=== PATIENT | female | born 1955 | race Caucasian/White ===

== ENCOUNTER 2024-07-11 20:15 | Emergency (ER) | payer MEDICARE, BC, SELFPAY ==
[2024-07-11 20:42] VITALS: BP 137/67; PULSE 86; TEMP 36.7; O2SAT 97; BMI 35.5
--- NOTE | 2024-07-11 20:50 | XR_ITS ---
The [address] [address] Patient Name: PEPITO ESTRELLA MRN: [id number] date: 1955 Sex: F Assigned Patient Location: ED.MAIN Current Patient Location: ED.MAIN Accession/Order Number: [id number] Exam Date: 07/11/2024 20:50 Report Date: 07/11/2024 21:12 At the request of: AMY SKY Procedure: XR shoulder RT min 2V PROCEDURE: XR shoulder RT min 2V HISTORY: fall, pain COMPARISON: None. FINDINGS: BONES:Acute transverse fracture through surgical neck of right humerus with slight medial displacement of the diaphysis. Humeral head appears remains seated within the glenoid. Possible fracture extension into the greater tuberosity. Moderate-marked degenerative changes of the acromioclavicular joint with large undersurface osteophytes. SOFT TISSUES:No visible soft tissue swelling. EFFUSION:None visible. OTHER: Negative. XR/XR shoulder RT min 2V IMPRESSION: 1. Acute transverse fracture through surgical neck of right humerus with minimal displacement. Possible extension into the greater tuberosity. Evaluation is slightly limited. 2. Moderate-marked degenerative changes of the acromioclavicular joint. Electronically authenticated by: ZAHRA LAURA Date: 07/11/2024 21:12
--- NOTE | 2024-07-11 20:50 | ED_ITS ---
HPI HPI - Extremity Injury (Upper) General Chief Complaint: Extremity Injury, Upper Stated Complaint: FALL AT HOME-POSS BROKEN ARM Time Seen by Provider: 07/11/24 20:21 Limitations: no limitations History of Present Illness HPI narrative: 69-year-old female presents for right shoulder pain. A half an hour ago she tripped on a cat toy and fell forward and hit her shoulder on the table. She did not hit her head and has no other injury. She is left-handed. The pain is moderate and is worse if she tries to move her shoulder. Related Data Home Medications ?Medication ?Instructions ?Recorded ?Confirmed albuterol sulfate 90 mcg/actuation 2 puff inhalation Q4H PRN 07/11/24 07/11/24 aerosol inhaler (Ventolin HFA) bronchospasm atorvastatin 20 mg tablet 20 mg PO DAILY 07/11/24 07/11/24 buspirone 10 mg tablet 20 mg PO BID 07/11/24 07/11/24 montelukast 10 mg tablet 10 mg PO DAILY 07/11/24 07/11/24 Previous Rx's ?Medication ?Instructions ?Recorded acetaminophen 300 mg-codeine 30 mg 1 tab PO Q6H PRN pain 5 days #20 07/11/24 tablet tabs Allergies Allergy/AdvReac Type Severity Reaction Status Date / Time aspirin Allergy Mild Difficulty Verified 07/11/24 20:39 Breathing naproxen (From Aleve) Allergy Mild Difficulty Verified 07/11/24 20:39 Breathing Penicillins Allergy Mild Difficulty Verified 07/11/24 20:39 Breathing Opioid HPI Opioid Management Most Recent Pain and Opioid Data: No Data to Display Review of Systems ROS Narrative A ten point review of systems is negative except as noted above. PFSH PFSH Social History Little interest or pleasure in doing things: not at all Feeling down, depressed, or hopeless: not at all Exam Narrative Exam Narrative: Nurses note and vital signs reviewed and patient is not hypoxic. General: The patient appears well and in no apparent distress. Patient is resting comfortably on cart. Skin: Warm, dry, no pallor noted. There is no rash noted. Head: Normocephalic, atraumatic Eye: Normal conjunctiva, no drainage Ears, Nose, Mouth, and Throat: oral mucosa is moist. Nares patent. Cardiovascular: Regular Rate and Rhythm Respiratory: Patient is in no distress, no accessory muscle use Back: non-tender GI: Soft and nontender Musculoskeletal: Triage nurse placed a sling on her shoulder. There is no obvious deformity. Skin intact. She has some tenderness in the proximal humeral area. She is reluctant to have any range of motion Neurological: A&O, normal speech Psychiatric: Cooperative Constitutional Vital Signs, click to edit/add: Last Vital Signs Temp 98.0 F 07/11/24 20:42 Pulse 86 07/11/24 20:42 Resp 20 07/11/24 20:42 BP 137/67 07/11/24 20:42 Pulse Ox 97 07/11/24 20:42 O2 Del Method Room Air 07/11/24 20:42 Course Vital Signs Vital signs: Vital Signs Temperature 98.0 F 07/11/24 20:42 Pulse Rate 86 07/11/24 20:42 Respiratory Rate 20 07/11/24 20:42 Blood Pressure 137/67 07/11/24 20:42 Pulse Oximetry 97 07/11/24 20:42 Oxygen Delivery Method Room Air 07/11/24 20:42 Temperature 98.0 F 07/11/24 20:42 Pulse Rate 86 07/11/24 20:42 Respiratory Rate 20 07/11/24 20:42 Blood Pressure 137/67 07/11/24 20:42 Pulse Oximetry 97 07/11/24 20:42 Oxygen Delivery Method Room Air 07/11/24 20:42 MDM - Extremity Injury (Upper) MDM Narrative Medical decision making narrative: X-ray my interpretation shows a proximal humeral fracture. Sling applied, application checked by me and found to be appropriate, she is neurovascular intact. Appointment made to see Dr. Lynn on Saturday at 10:45 AM. Treatment diagnosis and follow-up were discussed with the patient. Differential Diagnosis Differential diagnosis: Likely other (Contusion, fracture, rotator cuff injury) Imaging Data Right shoulder: My impression: Proximal humeral fracture Discharge Plan Discharge Chief Complaint: Extremity Injury, Upper Clinical Impression: Shoulder fracture, right Patient Disposition: Home, Self-Care Time of Disposition Decision: 20:55 Condition: Good Mode of Transportation: Private Vehicle Prescriptions / Home Meds: New acetaminophen-codeine 300-30 mg tablet 1 tab PO Q6H PRN (Reason: pain) 5 Days Qty: 20 0RF No Action atorvastatin 20 mg tablet 20 mg PO DAILY buspirone 10 mg tablet 20 mg PO BID montelukast 10 mg tablet 10 mg PO DAILY albuterol sulfate [Ventolin HFA] 90 mcg/actuation HFA aerosol inhaler 2 puff INHALATION Q4H PRN (Reason: bronchospasm) Print Language: Syriac Instructions: Arm Fracture in Adults (ED) Referrals: LILLY HINDS [Primary Care Provider] - 1 week He Lynn MD [Physician] - 07/13/24 10:45 am
[2024-07-11] MEDS: ACETAMINOPHEN 300 MG/ 30 MG CODEINE TABLET 1 TAB PO ×2 (21:22→22:45)
[2024-07-11] MEDS: ONDANSETRON 4 MG RAPDIS TABLET SL ×2 (21:30→22:45)
--- NOTE | 2024-07-11 22:14 | PC.NURSE ---
called in requesting another pain pill and nausea pill for home. OK'd by Dr Lynn
== END 2024-07-11 21:47 | disposition home or self-care (01) ==
PROVIDERS: Emergency Provider Emergency Medicine; Family Provider Family Medicine; PCP Family Medicine
DX: S42.211A Unspecified displaced fracture of surgical neck of right humerus, initial encounter for closed fracture (principal); W01.190A Fall on same level from slipping, tripping and stumbling with subsequent striking against furniture, initial encounter
CPT/HCPCS: 73030; 99284; Q0162

== ENCOUNTER 2024-07-20 10:06 | Outpatient (OUT) | payer MEDICARE, BC, SELFPAY ==
--- NOTE | 2024-07-20 | XR_ITS ---
[address] [address] Patient Name: PEPITO ESTRELLA MRN: [id number] date: 1955 Sex: F Assigned Patient Location: Current Patient Location: Accession/Order Number: [id number] Exam Date: 07/20/2024 10:15 Report Date: 07/21/2024 07:43 At the request of: ZAHRA GUTIERREZ Procedure: XR shoulder RT min 2V PROCEDURE: XR shoulder RT min 2V HISTORY: RIGHT SHOULDER PAIN ; follow-up humerus fracture COMPARISON: XR shoulder right 07/11/2024x FINDINGS: BONES:Prior transverse fracture through surgical neck of humerus with relatively normal alignment and minimal displacement. No appreciable callus formation. Humeral head remains seated within the glenoid. Moderate degenerative changes of the acromioclavicular joint. SOFT TISSUES:No visible soft tissue swelling. EFFUSION:None visible. OTHER: Negative. XR/XR shoulder RT min 2V IMPRESSION: 1. Right humerus surgical neck fracture with minimal displacement. Electronically authenticated by: ZAHRA LAURA Date: 07/21/2024 07:43
--- OUTSIDE RECORDS SUMMARY | 2024-07-20 10:11 | XMS_ITS | CCD ---
Author Organization [facility] Care Team Providers Care Family Day Care Worker Name Role Phone Oberer, Luis Unavailable Oberer, DO Luis Primary Care Provider Oberer, DO Luis Attending Provider [phone] Oberer, DO Luis Primary Care Provider Oberer, DO Luis Attending Provider [phone] Oberer, DO Luis Primary Care Provider [phone] Oberer, DO Luis Attending Provider Bedocs, Matt M Attending Provider [phone] Oberer, DO Luis Primary Care Provider [phone] Oberer, DO Luis Attending Provider Oberer, DO Luis Referring Provider Self, Referral Attending Provider Unavailable Oberer, Luis Primary Care Unavailable Oberer, Luis Attending Unavailable Oberer, Luis Admitting Unavailable Oberer, Luis Primary Care Unavailable BedocsMatt M Admitting Unavailable BedocsMatt Attending Unavailable Oberer, Luis Primary Care Unavailable Oberer, Luis Attending Unavailable Oberer, Luis Admitting Unavailable Oberer, Luis Primary Care Unavailable Oberer, Luis Referring Unavailable Self, Referral Admitting Unavailable Self, Referral Attending Unavailable Allergies Allergy Classification Reported Allergen(s) Allergy Type Date of Onset Reaction(s) Facility (13 sources) Alendronate Drug Allergy GI upset [employer] Other (16 sources) fluticasone Drug Allergy 4 sore throat, dyspnea, sore throat [facility] (12 sources) fluticasone / salmeterol Drug Allergy dyspnea [employer] Other (8 sources) Penicillin V Drug Allergy shortness of breath [facility] Other (13 sources) salmon calcitonin Drug Allergy Nasal Bleeding [facility] Other (1 source) fluticasone / salmeterol Drug Allergy dyspnea [facility] Other (9 sources) Aspirin; Translations: [aspirin] Drug Allergy 8 Difficulty Breathing [facility] (9 sources) Naproxen; Translations: [naproxen] Drug Allergy 8 Difficulty Breathing [facility] (9 sources) Penicillins; Translations: [Penicillins] Allergy to substance 8 Difficulty Breathing, Difficulty Breathing, shortness of breath [facility] (5 sources) Penicillin Drug Allergy shortness of breath [facility] Other (4 sources) Alendronate; Translations: [alendronate sodium] Drug Allergy 4 GI upset [facility] (4 sources) salmeterol; Translations: [salmeterol] Drug Allergy 4 dyspnea [facility] (4 sources) calcitonin; Translations: [calcitonin] Allergy to substance 4 Nasal Bleeding [facility] (1 source) fluticasone Drug Allergy 4 [facility] Repository Medications Current Medications Medication Drug Class(es) Dates Sig (Normalized) Sig (Original) [id number] 200 actuat albuterol 0.09 mg/actuat metered dose inhaler (20 sources) beta2-Adrenergic Agonist Start: 03-06-2024 Albuterol Sulfate (Ventolin Hfa) 90 mcg/actuation HFA aerosol inhaler Active 0 .ROUTE .COMPLEX 18 March 06, 2024 11:45am USE 2 INHALATIONS BY MOUTH TWICE DAILY Start: 02-17-2024 End: 03-06-2024 take 1 puff(s) by inhalation twice daily Albuterol Sulfate Discontinued 2 PUFF INHALATION Twice daily 6.7 February 17, 2024 3:11pm March 06, 2024 11:45am Start: 01-24-2024 take 3 mL by inhalat ion four times daily Albuterol Sulfate Active 2.5 MG INHALATION Four times daily January 24, 2024 12:00am [employer] Inhalation 4 times a day; Note: Source Status: Taking; Provider: James Smith ( ) Start: 10-02-2017 End: 02-17-2024 take 1 puff(s) by inhalation twice daily Albuterol Sulfate Discontinued 1 PUFF INHALATION Twice daily October 02, 2017 12:00am February 17, 2024 3:14pm Ventolin HFA 108 (90 Base) MCG/ACT USE 2 INHALATIONS BY MOUTH DAILY AND EVERY 4 HOURS NEEDED FOR ASTHMA PRODUCT APPLICATIONS SCIENTIST RECOMMENDS NOT EXCEEDING 12 INH/DAY for 90 Active Ventolin HFA 108 (90 Base) MCG/ACT 2 puffs Inhalation daily and every 4 hrs prn asthma for 90 days Active Albuterol Sulfate (2.5 MG/ 3 ML) 2.5 MG/3ML 0.083% Nebulization Solution (13 sources) Albuterol Sulfat e (2.5 MG/ 3 ML) 2.5 MG/3ML 0.083% Nebulization Solution 3ml Inhalation 4 times a day Active [facility] (13 sources) take 1 tablet by mouth once daily as needed [facility] 1 tablet as needed Orally Once a day Active aspirin 81 mg delayed release oral tablet (9 sources) Platelet Aggregation Inhibitor, Nonsteroidal Anti-inflammatory Drug take 1 tablet by mouth every twenty-four hours Aspirin 81 81 MG 1 tablet Orally Once a day for 30 day(s) Active take 1 tablet by mouth once ramesh y Aspirin 81 81 MG 1 tablet Orally Once a day for 30 day(s) Active atorvastatin 20 mg oral tablet (20 sources) HMG-CoA Reductase Inhibitor Start: 11-15-2023 take 20 mg by mouth once daily at bedtime Atorvastatin Active 20 MG PO Daily at bedtime 90 90 November 15, 2023 12:00am Start: 11-14-2023 End: 11-15-2023 take 2 tablets by mouth once daily at bedtime Atorvastatin (Lipitor) 10 mg tablet Discontinued 20 MG PO Daily at bedtime 180 November 14, 2023 4:27pm November 15, 2023 10:52am Start: 10-02-2017 End: 11-14-2023 take 1 tablet by mouth once daily Atorvastatin (Lipitor) 10 mg Tablet Discontinued 10 MG PO Daily October 02, 2017 12:00am November 14, 2023 4:26pm take 1 tablet by caitlin th at bedtime Atorvastatin Calcium 20 MG TAKE 1 TABLET BY MOUTH AT BEDTIME for 90 Active 24 hr buPROPion hydrochloride 300 mg extended release oral tablet (8 sources) Aminoketone Start: 06-11-2017 take 1 tablet by mouth every twenty-four hours Wellbutrin XL 300 MG 1 tablet in the morning Orally Once a day for 90 days Jun, Active busPIRone hydrochloride 10 mg oral tablet (15 sources) Start: 01-22-2024 End: 01-27-2024 take 2 tablets by mouth twice daily Buspirone Active 20 MG PO Twice daily 360 90 January 27, 2024 11:21am FreeText[employer] tablets Orally Twice a day; Note: Source Status: Start; Refills: 1; Qty: 360 Tablet; Provider: James Nagel Start: 07-22-2023 take 2 tablets by mo [facility] every twelve hours busPIRone HCl 10 MG 2 tablets Orally Twice a day for 90 days Jul, Active Start: 01-25-2022 take 1 tablet by caitlin every twelve hours busPIRone HCl 15 MG 1 tablet Orally Twice a day for 90 days Jan, Active Start: 11-17-2021 take 1 tablet by caitlin every twelve hours busPIRone HCl 10 MG 1 tablet Orally Twice a day for 30 days November, Active Start: 10-26-2021 take 1 tablet by caitlin every twelve hours busPIRone HCl 5 MG 1 tablet Orally Twice a day for 30 days Oct, Active Calcium (13 sources) Phosphate Binder, Calcium Calciu m + D Orally Daily Active ciclopirox 7.7 mg/ml topical cream (3 sources) Start: 01-25-2022 Loprox 0.77 % Apply to right elbow rash Externally Twice a day for 30 days PRN Jan, Active fluticasone propionate 0.05 mg/actuat metered dose nasal spray (20 sources) Corticosteroid Start: 10-02-2017 Fluticasone Propionate (Flonase Allergy Relief) 50 mcg/actuation [place],Suspension Active 1 SPRAY INTRANASAL Daily October 02, 2017 12:00am take 2 spray(s) nasal route once daily Flonase 50 MCG/ACT 2 spray in each nostril Nasally Once a day for 90 days Active take 2 spray(s) nasal route once daily Flonase 50 MCG/ACT 2 spray in each nostril Nasally Once a day for 90 days Active L.Rhamnosus-B.Animalis (HelloFresh) 3 billion cell capsule (2 sources) Start: 01-24-2024 L.Rhamnosus-B.Animalis (HelloFresh) 3 billion cell capsule Active CAP PO January 24, 2024 12:00am montelukast 10 mg oral tablet (20 sources) Leukotriene Receptor Antagonist Start: 10-02-2017 End: 12-18-2023 take 1 tablet by mouth once daily in the evening Montelukast (Singulair) 10 mg tablet Active 10 MG PO Every evening 90 December 18, 2023 2:31pm nitrofurantoin, macrocrystals 25 mg / nitrofurantoin, monohydrate 75 mg oral capsule (3 sources) Nitrofuran Antibacterial Start: 07-20-2021 take 1 capsule by mouth every twelve hours Macrobid 100 MG 1 capsule with food Orally every 12 hrs for 10 days Jul, Active MyParichay (13 sources) NanoPowers ealt Orally Active risedronate sodium 150 mg oral tablet (16 sources) Start: 01-24-2024 End: 02-17-2024 take 150 mg by mouth every month Risedronate Active 150 MG PO every month February 17, 2024 3:13pm administer at least 30 minutes before the first food or drink of the day other than water. take 1 tablet by mouth every sat Risedronate Sodium 150 MG TAKE 1 TABLET BY MOUTH MONTHLY for 90 Active sertraline 100 mg oral tablet (20 sources) Serotonin Reuptake Inhibitor Start: 01-24-2024 take 2 tablets by mouth once daily Sertraline (Zoloft) 100 mg tablet Active 200 MG PO Daily January 24, 2024 8:35am Start: 10-02-2017 End: 01-24-2024 take 1 tablet by mouth once daily Sertraline (Zoloft) 100 mg Tablet Discontinued 100 MG PO Daily October 02, 2017 12:00am January 24, 2024 8:37am take 2 tablets by mo uth once daily Sertraline HCl 100 MG TAKE 2 TABLETS BY MOUTH ONCE DAILY for 90 Active spironolactone 100 mg oral tablet (6 sources) Aldosterone Antagonist Start: 01-22-2024 take 1 tablet by mouth once daily Spironolactone Active 100 MG PO Daily January 22, 2024 12:00am FreeTextSi tablet Orally Once a day; Note: Source Status: Taking; Provider: Per Dr. Mckeon take 1 tablet by caitlin th every twenty-four hours Spironolactone 100 MG 1 tablet Orally On ce a day Active tiotropium 0.018 mg inhalation powder (13 sources) Anticholinergic Start: 12-24-2019 take 1 capsule by inhalation once daily Spiriva HandiHaler 18 MCG 1 capsule by inhaling the contents of the capsule using the HandiHaler device Inhalation Once a day for 90 days Dec, Active Start: 12-24-2019 take 1 capsule by in halation once daily Spiriva HandiHaler 18 MCG 1 capsule by inhaling the contents of the capsule using the HandiHaler device Inhalation Once a day for 90 days Dec, Active Completed/Discontinued Medications Medication Drug Class(es) Dates Sig (Normalized) Sig (Original) acetaminophen 325 mg / HYDROcodone bitartrate 5 mg oral tablet (8 sources) Opioid Agonist Start: 10-02-2017 End: 01-24-2024 take 1 tablet by mouth every six hours Hydrocodone-Acetami nophen ([place]) 5-325 mg tablet Discontinued 1 TAB PO Q6H October 02, 2017 January 24, 2024 8:35am Problems Active Problems Problem Classification Problem Date Documented Da te Episodic/Chronic Adjustment disorders (20 sources) Adjustment disorder with mixed emotional features; Translations: [Adjustment disorder with mixed anxiety and depressed mood] Onset: 07-20-2021 Resolved: 02-15-2022 Chronic Allergic reactions (18 sources) Allergy to penicillin; Translations: [Allergy status to penicillin] Onset: 07-20-2021 Resolved: 07-20-2021 Episodic Anxiety disorders (17 sources) Panic disorder; Translations: [Panic disorder [episodic paroxysmal anxiety]] Onset: 10-26-2021 Resolved: 01-25-2022 Chronic Asthma (20 sources) Asthma; Translations: [Unspecified asthma, uncomplicated] Onset: 07-20-2021 Resolved: 01-25-2022 Chronic Disorders of lipid metabolism (20 sources) Mixed hyperlipidemia; Translations: [Mixed hyperlipidemia] Onset: 07-20-2021 Resolved: 01-25-2022 Chronic Fracture of lower limb (16 sources) Metatarsal bone fracture; Translations: [Displaced fracture of fifth metatarsal bone, unspecified foot, initial encounter for closed fracture] 10-02-2017 Episodic Menopausal disorders (16 sources) Menopausal and female climacteric states; Translations: [Menopausal state] 01-08-2024 Chronic Osteoarthritis (20 sources) Degenerative joint disease involving multiple joints; Translations: [Polyosteoarthritis , unspecified] Onset: 07-20-2021 Resolved: 01-25-2022 Chronic Osteoporosis (20 sources) Osteoporosis; Translations: [Age-related osteoporosis without current pathological fracture] Onset: 07-20-2021 Resolved: 01-25-2022 Chronic Other aftercare (16 sources) Long-term current use of drug therapy; Translations: [Other intermediate school teacher (current) drug therapy] 01-08-2024 Episodic Other aftercare (5 sources) Other intermediate school teacher (current) drug therapy Onset: 07-20-2021 Resolved: 01-25-2022 Episodic Other connective tissue disease (13 sources) Weakness of face muscles; Translations: [Facial weakness] Episodic Other nutritional; endocrine; and metabolic disorders (13 sources) Childhood obesity; Translations: [Other obesity due to excess calories] Chronic Other nutritional; endocrine; and metabolic disorders (4 sources) Other obesity due to excess calories Onset: 07-20-2021 Resolved: 01-25-2022 Chronic Other nutritional; endocrine; and metabolic disorders (1 source) Body mass index 40+ - severely obese; Translations: [Body mass index (BMI) 50.0-59.9, adult] Chronic Other nutritional; endocrine; and metabolic disorders (1 source) Body mass index (BMI) 50.0-59.9, adult Chronic Other screening for suspected conditions (not mental disorders or infectious disease) (8 sources) Encounter for screening for malignant neoplasm of colon; Translations: [Encounter for screening for osteoporosis] Onset: 10-19-2021 Resolved: 02-15-2022 Episodic Other upper respiratory disease (16 sources) Seasonal allergy; Translations: [Other seasonal allergic rhinitis] 01-08-2024 Chronic Other upper respiratory disease (16 sources) Allergic rhinitis; Translations: [Allergic rhinitis, unspecified] 01-08-2024 Chronic Other upper respiratory disease (3 sources) Allergic rhinitis, unspecified Onset: 07-20-2021 Resolved: 01-25-2022 Chronic Other upper respiratory disease (3 sources) Other seasonal allergic rhinitis; Translations: [Allergic rhinitis, cause unspecified] Chronic Residual codes; unclassified (16 sources) FH: Alzheimer's disease; Translations: [Family history of epilepsy and other diseases of the nervous system] 01-08-2024 Episodic Residual codes; unclassified (1 source) Family history of epilepsy and other diseases of the nervous system Episodic Unclassified (1 source) Other specified nonscarring hair loss; Translations: [Other specified nonscarring hair loss] Onset: 07-30-2023 Past or Other Problems Problem Classification Problem Date Documented Da te Episodic/Chronic Administrative/social admission (1 source) Other specified counseling Onset: 01-25-2022 Resolved: 01-25-2022 Episodic Diabetes mellitus without complication (20 sources) Impaired glucose tolerance; Translations: [Impaired glucose tolerance (oral)] Onset: 07-20-2021 Resolved: 01-25-2022 Episodic Genitourinary symptoms and ill-defined conditions (2 sources) Dysuria Onset: 07-20-2021 Resolved: 07-20-2021 Episodic Mycoses (1 source) Tinea corporis Onset: 01-25-2022 Resolved: 01-25-2022 Episodic Other connective tissue disease (3 sources) Facial weakness Onset: 07-20-2021 Resolved: 01-25-2022 Episodic Other skin disorders (1 source) Other seborrheic keratosis Onset: 01-25-2022 Resolved: 01-25-2022 Episodic Unclassified (1 source) Vaccine counseling Z71.85 Urinary tract infections (3 sources) Cystitis, unspecified without hematuria Onset: 07-20-2021 Resolved: 08-07-2021 Episodic Results Test Name Value Interpretation Reference Range Facility MM screening mammo BI w/CADo n 03-20-2024 MM screening mammo BI w/CAD [facility] [place] [address] Mammography Report Signed Patient: Paula Bone V MR#: [id number] [birth year] : 1955 Acct:[id number] Age/Sex: 69 / F ADM Date: 03/20/24 Loc: [place] Room: Type: [facility] Attending Dr: Referral Self Copies to: Luis Ramirez DO SELF,REFERRAL Ordering Provider: SELF,REFERRAL Date of Service: 03/20/24 MM/MM screening mammo BI w/CAD: SCREENING CLINICAL DATA: Screening for malignancy. BILATERAL SCREENING MAMMOGRAMS - FULL FIELD DIGITAL WITH TOMOSYNTHESIS AND CAD Tomosynthesis craniocaudal and mediolateral oblique views of both breasts were obtained using low- dose digital technique. Comparison is made to prior studies from February 17, 2018 through March 19, 2023. This examination was reviewed with the aid of CAD. The breast parenchyma has been largely replaced by fat. Benign calcifications are present. There are no developing masses, typically malignant calcifications or architectural distortion. There has been no significant interval change. MM/MM screening mammo BI w/CAD IMPRESSION: NO MAMMOGRAPHIC EVIDENCE OF MALIGNANCY. ROUTINE FOLLOW-UP IS RECOMMENDED IN ONE YEAR. RESULT CODE: 2 Benign Findings(s) DENSITY CODE: 1 (<25% glandular) FOLLOW UP: 1YR The false-negative rate of mammography is approximately 10-percent. Management of a palpable abnormality must be based on clinical grounds. Patient was entered into a reminder system with a target due date for the next mammogram. Impression dictated by: Ruth Valverde M.D.03/20/2024 3:26 PM Dictation Location: [facility] Transcribed By: [facility] 03/20/24 1526 Dictated By: Ruth Valverde MD 03/20/24 1522 Signed By: 03/20/24 1526 Normal [facility] A1C with Estimated Average G amaris 01-17-2024 Glucose [Mass/Vol] 120 mg/dL Normal [facility] Comment on above: Order Comment: Reaso n for Exam Impaired glucose tolerance Result Comment: PERF ORMED BY: [place] [address] PATHOLOGIST GLOBAL CREATIVE CHAIRMAN ELIEZER TEMPLE M.D. Performed By: #### A 1C [facility] #### [address] Cholesterol [Mass/volume] in Serum or PlasmaOrdered By: Luis Ramirez on 01-17-2024 Cholesterol [Mass/Vol] 146 mg/dL Normal 140-200 [facility] Comment on above: Chol less than 200 m g/dl low riskChol 201-239 mg/dl borderline riskChol 240 mg/dl and greater high risk Order Comment: Reaso n for Exam Mixed hyperlipidemia Result Comment: Chol less than 200 mg/dl low risk Chol 201-239 mg/dl borderline risk Chol 240 mg/dl and greater high risk Performed By: #### L IPID #### [facility] [address] Cholesterol in LDL Calc [Mas s/Vol]Ordered By: Luis Ramirez on 01-17-2024 Cholesterol in LDL [Mass/Vol] 70 mg/dL 0-100 [facility] Comment on above: LDL ATP III CLASSIFI CATIONLDL less than 100 mg/dL OptimalLDL 100-129 mg/dL Near or above optimalLDL 130-159 mg/dL Borderline highLDL 160-189 mg/dL HighLDL greater than 189 mg/dL Very high Cholesterol in VLDL Calc [Ma ss/Vol]Ordered By: Luis Ramirez on 01-17-2024 Cholesterol in VLDL [Mass/Vol] 27 mg/dL [facility] Glucose mean value [Mass/vol ume] in Blood Estimated from glycated hemoglobinOrdered By: Luis Ramirez on 01-17-2024 Average glucose Estimated from glycated hemoglobin (Bld) [Mass/Vol] 120 mg/dL [facility] Hemoglobin A1c percentageOrd ered By: Luis Ramirez on 01-17-2024 HbA1c (Bld) [Mass fraction] 5.8 % High 4.3-5.6 [facility] Comment on above: Increased risk for d iabetes: 5.7 - 6.4diabetes: >6.4glycemic control for adults with diabetes: <7.0 Order Comment: Reaso n for Exam Impaired glucose tolerance Result Comment: Incr eased risk for diabetes: 5.7 - 6.4 diabetes: >6.4 glycemic control for adults with diabetes: <7.0 Performed By: #### A 1C WT eA #### [facility] [address] [place] [id number] [facility] Lipid Panelon 01-17-2024 LDL Cholesterol,Calculated 70 mg/dL Normal 0-100 [facility] Comment on above: Order Comment: Alfonsoo n for Exam Mixed hyperlipidemia Result Comment: LDL ATP III CLASSIFICATION LDL less than 100 mg/dL Optimal LDL 100-129 mg/dL Near or above optimal LDL 130-159 mg/dL Borderline high LDL 160-189 mg/dL High LDL greater than 189 mg/dL Very high Performed By: #### L IPID #### [facility] [address] Triglyceride w/Reflex 138 mg/dL Normal 0-149 [facility] Comment on above: Order Comment: Jes n for Exam Mixed hyperlipidemia Result Comment: TRIG ATP III CLASSIFICATION TRIG less than 150 mg/dL Normal TRIG 150-199 mg/dL Borderline high TRIG 200-500 mg/dL High TRIG greater than 500 mg/dL Very high Standard traceable to the Center for Disease Conrtrol and Prevention (CDC) test method. Performed By: #### L IPID #### [facility] [address] VLDL CHOLESTEROL 27 mg/dL Normal [facility] Comment on above: Order Comment: Jes n for Exam Mixed hyperlipidemia Performed By: #### L IPID #### [facility] [address] [place] [id number] [facility] Serum or plasma high density lipoprotein (HDL) cholesterol measurementOrdered By: Luis Ramirez on 01-17-2024 Cholesterol in HDL [Mass/Vol] 48 mg/dL Normal 23-92 [facility] Comment on above: HDL CHOL ATP-III CLA SSIFICATION Cardiovascular RiskHDL > or equal to 60 mg/dL LOWHDL < 40 mg/dL HIGH Order Comment: Alfonsoo n for Exam Mixed hyperlipidemia Result Comment: HDL CHOL ATP-III CLASSIFICATION Cardiovascular Risk HDL > or equal to 60 mg/dL LOW HDL < 40 mg/dL HIGH Performed By: #### L IPID #### [facility] [address] [place] [id number] [facility] Serum or plasma total choles terol/high density lipoprotein (HDL) cholesterol mass ratOrdered By: Luis Ramirez on 01-17-2024 Cholesterol.total/Flory sterol in HDL [Mass ratio] 3.0 {ratio} Normal <5.0 [facility] Comment on above: Order Comment: Reaso n for Exam Mixed hyperlipidemia Result Comment: PERF ORMED BY: [place] [address] PATHOLOGIST [employer]LOBAL CREATIVE CHAIRMAN ELIEZER TEMPLE M.D. Performed By: #### L IPID #### [facility] [address] [place], [place] [id number] [place] Triglyceride [Mass/volume] i n Serum or PlasmaOrdered By: Luis Ramirez on 01-17-2024 Triglyceride [Mass/Vol] 138 mg/dL 0-149 [facility] [place] Comment on above: TRIG ATP III CLASSIF ICATIONTRIG less than 150 mg/dL NormalTRIG 150-199 mg/dL Borderline highTRIG 200-500 mg/dL High TRIG greater than 500 mg/dL Very highStandard traceable to the Center for Disease Conrtrol and Prevention (CDC) test method. Alanine aminotransferase [En zymatic activity/volume] in Serum or PlasmaOrdered By: Matt Mckeon on 07-30-2023 ALT [Catalytic activity/Vol] 14 U/L Normal 7-52 [facility] Comment on above: Result Comment: PERF ORMED BY: [place] [address] PATHOLOGIST GLOBAL CREATIVE CHAIRMAN ELIEZER TEMPLE M.D. Performed By: #### A ST, ALT, K #### [facility] [address] [place] [id number] [place] Aspartate aminotransferase [ Enzymatic activity/volume] in Serum or PlasmaOrdered By: Matt Mckeon on 07-30-2023 AST [Catalytic activity/Vol] 15 U/L Normal 13-39 [facility] Comment on above: Performed By: #### A ST, ALT, K #### [facility] [address] [place] [id number] [place] Potassium [Moles/volume] in Serum or PlasmaOrdered By: Matt Mckeon on 07-30-2023 Potassium [Moles/Vol] 4.7 mmol/L Normal 3.5-5.1 [facility] Comment on above: Performed By: #### A ST, ALT, K #### [facility] [address] [place] [address] [place] A1C with Estimated Average G jesusn 07-15-2023 Glucose [Mass/Vol] 117 mg/dL Normal [facility] Comment on above: Order Comment: Reaso n for Exam Impaired glucose tolerance Result Comment: PERF ORMED BY: [place] [address] PATHOLOGIST [employer]LOBAL CREATIVE CHAIRMAN ELIEZER TEMPLE M.D. Performed By: #### A 1C WT eA #### [facility] [address] [place] [address] [place] Cholesterol [Mass/volume] in Serum or PlasmaOrdered By: Luis Ramirez on 07-15-2023 Cholesterol [Mass/Vol] 151 mg/dL Normal 140-200 [facility] Comment on above: Chol less than 200 m g/dl low riskChol 201-239 mg/dl borderline riskChol 240 mg/dl and greater high risk Order Comment: Reaso n for Exam Mixed hyperlipidemia FASTING Result Comment: Chol less than 200 mg/dl low risk Chol 201-239 mg/dl borderline risk Chol 240 mg/dl and greater high risk Performed By: #### L IPID #### [facility] [address] [place] [id number] [facility] Cholesterol in LDL Calc [Mas s/Vol]Ordered By: Luis Ramirez on 07-15-2023 Cholesterol in LDL [Mass/Vol] 71 mg/dL 0-100 [facility] Comment on above: LDL ATP III CLASSIFI CATIONLDL less than 100 mg/dL OptimalLDL 100-129 mg/dL Near or above optimalLDL 130-159 mg/dL Borderline highLDL 160-189 mg/dL HighLDL greater than 189 mg/dL Very high Cholesterol in VLDL Calc [Ma ss/Vol]Ordered By: Luis Ramirez on 07-15-2023 Cholesterol in VLDL [Mass/Vol] 34 mg/dL [facility] Glucose mean value [Mass/vol ume] in Blood Estimated from glycated hemoglobinOrdered By: Luis Ramirez on 07-15-2023 Average glucose Estimated from glycated hemoglobin (Bld) [Mass/Vol] 117 mg/dL [facility] Hemoglobin A1c percentageOrd ered By: Luis Ramirez on 07-15-2023 HbA1c (Bld) [Mass fraction] 5.7 % High 4.3-5.6 [facility] Comment on above: Increased risk for d iabetes: 5.7 - 6.4diabetes: >6.4glycemic control for adults with diabetes: <7.0 Order Comment: Reaso n for Exam Impaired glucose tolerance Result Comment: Incr eased risk for diabetes: 5.7 - 6.4 diabetes: >6.4 glycemic control for adults with diabetes: <7.0 Performed By: #### A 1C WT eA #### [facility] [address] Lipid Panelon 07-15-2023 LDL Cholesterol,Calculated 71 mg/dL Normal 0-100 [facility] Comment on above: Order Comment: Reaso n for Exam Mixed hyperlipidemia FASTING Result Comment: LDL ATP III CLASSIFICATION LDL less than 100 mg/dL Optimal LDL 100-129 mg/dL Near or above optimal LDL 130-159 mg/dL Borderline high LDL 160-189 mg/dL High LDL greater than 189 mg/dL Very high Performed By: #### L IPID #### [facility] [address] Triglyceride w/Reflex 173 mg/dL High 0-149 [facility] Comment on above: Order Comment: Reaso n for Exam Mixed hyperlipidemia FASTING Result Comment: TRIG ATP III CLASSIFICATION TRIG less than 150 mg/dL Normal TRIG 150-199 mg/dL Borderline high TRIG 200-500 mg/dL High TRIG greater than 500 mg/dL Very high Standard traceable to the Center for Disease Conrtrol and Prevention (CDC) test method. Performed By: #### L IPID #### [facility] [address] [place] [id number] [facility] VLDL CHOLESTEROL 34 mg/dL Normal [facility] Comment on above: Order Comment: Alfonsoo n for Exam Mixed hyperlipidemia FASTING Performed By: #### L IPID #### [facility] [address] [place] [id number] [place] Serum or plasma high density lipoprotein (HDL) cholesterol measurementOrdered By: Luis Ramirez on 07-15-2023 Cholesterol in HDL [Mass/Vol] 45 mg/dL Normal 23-92 [facility] Comment on above: HDL CHOL ATP-III CLA SSIFICATION Cardiovascular RiskHDL > or equal to 60 mg/dL LOWHDL < 40 mg/dL HIGH Order Comment: Reaso n for Exam Mixed hyperlipidemia FASTING Result Comment: HDL CHOL ATP-III CLASSIFICATION Cardiovascular Risk HDL > or equal to 60 mg/dL LOW HDL < 40 mg/dL HIGH Performed By: #### L IPID #### [facility] [address] Serum or plasma total choles terol/high density lipoprotein (HDL) cholesterol mass ratOrdered By: Luis Ramirez on 07-15-2023 Cholesterol.total/Flory sterol in HDL [Mass ratio] 3.4 {ratio} Normal <5.0 [facility] Comment on above: Order Comment: Reaso n for Exam Mixed hyperlipidemia FASTING Result Comment: PERF ORMED BY: [place] [address] PATHOLOGIST [employer] ELIEZER TEMPLE M.D. Performed By: #### L IPID #### [facility] [address] Triglyceride [Mass/volume] i n Serum or PlasmaOrdered By: Luis Ramirez on 07-15-2023 Triglyceride [Mass/Vol] 173 mg/dL 0-149 [facility] [place] Comment on above: TRIG ATP III CLASSIF ICATIONTRIG less than 150 mg/dL NormalTRIG 150-199 mg/dL Borderline highTRIG 200-500 mg/dL High TRIG greater than 500 mg/dL Very highStandard traceable to the Center for Disease Conrtrol and Prevention (CDC) test method. Alanine aminotransferase [En zymatic activity/volume] in Serum or PlasmaOrdered By: Luis Ramirez on 01-14-2023 ALT [Catalytic activity/Vol] 15 U/L 7-52 [facility] Albumin [Mass/volume] in Ser um or Plasma by Bromocresol green (BCG) dye binding methoOrdered By: Luis Ramirez on 01-14-2023 Albumin BCG dye [Mass/Vol] 4.2 g/dL 3.5-5.7 [facility] Alkaline phosphatase [Enzyma tic activity/volume] in Serum or PlasmaOrdered By: Luis Ramirez on 01-14-2023 ALP [Catalytic activity/Vol] 65 U/L 34-104 [facility] Aspartate aminotransferase [ Enzymatic activity/volume] in Serum or PlasmaOrdered By: Luis Ramirez on 01-14-2023 AST [Catalytic activity/Vol] 18 U/L 13-39 [facility] Basophils Auto (Bld) [#/Vol] Ordered By: Luis Obnel on 01-14-2023 Basophils (Bld) [#/Vol] 0.1 10*3/uL 0.0-0.2 [facility] Basophils/100 WBC Auto (Bld) Ordered By: Luis Obnel on 01-14-2023 Basophils/100 WBC (Bld) 0.7 % . [facility] [place] Bilirubin.direct [Mass/volum e] in Serum or PlasmaOrdered By: Luis Ramirez on 01-14-2023 Bilirubin.direct [Mass/Vol] 0.10 mg/dL 0.03-0.18 [facility] Bilirubin.total [Mass/volume ] in Serum or PlasmaOrdered By: Luis Ramirez on 01-14-2023 Bilirubin [Mass/Vol] 0.8 mg/dL 0.3-1.0 [facility] Calcium [Mass/volume] in Ser um or PlasmaOrdered By: Luis Ramirez on 01-14-2023 Calcium [Mass/Vol] 9.8 mg/dL 8.6-10.3 [facility] Carbon dioxide, total [Moles /volume] in Serum or PlasmaOrdered By: Luis Obnel on 01-14-2023 CO2 [Moles/Vol] 27.6 mmol/L 21.0-31.0 [facility] Chloride [Moles/volume] in S daina or PlasmaOrdered By: Luis Obnel on 01-14-2023 Chloride [Moles/Vol] 104 mmol/L 98-107 [facility] Cholesterol [Mass/volume] in Serum or PlasmaOrdered By: Luis Ramirez on 01-14-2023 Cholesterol [Mass/Vol] 135 mg/dL 140-200 [facility] Comment on above: Chol less than 200 m g/dl low riskChol 201-239 mg/dl borderline riskChol 240 mg/dl and greater high risk Cholesterol in LDL Calc [Mas s/Vol]Ordered By: Luis Ramirez on 01-14-2023 Cholesterol in LDL [Mass/Vol] 65 mg/dL 0-100 [facility] Comment on above: LDL ATP III CLASSIFI CATIONLDL less than 100 mg/dL OptimalLDL 100-129 mg/dL Near or above optimalLDL 130-159 mg/dL Borderline highLDL 160-189 mg/dL HighLDL greater than 189 mg/dL Very high Cholesterol in VLDL Calc [Ma ss/Vol]Ordered By: Luis Ramirez on 01-14-2023 Cholesterol in VLDL [Mass/Vol] 23 mg/dL [facility] Creatinine [Mass/volume] in Serum or PlasmaOrdered By: Luis Ramirez on 01-14-2023 Creatinine [Mass/Vol] 0.83 mg/dL 0.60-1.20 [facility] Eosinophils Auto (Bld) [#/Vo l]Ordered By: Luis Ramirez on 01-14-2023 Eosinophils (Bld) [#/Vol] 0.1 10*3/uL 0.0-0.45 [facility] Eosinophils/100 WBC Auto (Bl d)Ordered By: Luis Ramirez on 01-14-2023 Eosinophils/100 WBC (Bld) 0.9 % . [facility] Erythrocyte distribution wid th Auto (RBC) [Ratio]Ordered By: Luis Ramirez on 01-14-2023 Erythrocyte distribution width (RBC) [Ratio] 13.1 % 11.9-15.3 [facility] Globulin Calc (S) [Mass/Vol] Ordered By: Luis Ramirez on 01-14-2023 Globulin (S) [Mass/Vol] 2.8 g/dL [facility] Glucose [Mass/volume] in Ser um or PlasmaOrdered By: Luis Ramirez on 01-14-2023 Glucose [Mass/Vol] 97 mg/dL 70-100 [facility] Comment on above: ADA recommended refe rence rangeRandom Glucose Reference Range is dependent on time and content of last meal. Glucose of more than 200 mg/dL in a nonstressed, ambulatory subject supports the diagnosis of Diabetes Mellitus. Glucose mean value [Mass/vol ume] in Blood Estimated from glycated hemoglobinOrdered By: Luis Ramirez on 01-14-2023 Average glucose Estimated from glycated hemoglobin (Bld) [Mass/Vol] 120 mg/dL [facility] Hematocrit Auto (Bld) [Volum e fraction]Ordered By: Luis Ramirez on 01-14-2023 Hematocrit (Bld) [Volume fraction] 41.8 % 34.0-46.4 [facility] Hemoglobin A1c percentageOrd ered By: Luis Ramirez on 01-14-2023 HbA1c (Bld) [Mass fraction] 5.8 % 4.3-5.6 [facility] Comment on above: Increased risk for d iabetes: 5.7 - 6.4diabetes: >6.4glycemic control for adults with diabetes: <7.0 Hemoglobin [Mass/volume] in BloodOrdered By: Luis Ramirez on 01-14-2023 Hemoglobin (Bld) [Mass/Vol] 14.1 g/dL 11.8-15.4 [facility] Leukocytes [#/volume] correc she for nucleated erythrocytes in Blood by Automated counOrdered By: Luis Ramirez on 01-14-2023 WBC corrected for nucl RBC Auto (Bld) [#/Vol] 8.1 10*3/uL 3.8-11.6 [facility] Lymphocytes Auto (Bld) [#/Vo l]Ordered By: Luis Ramirez on 01-14-2023 Lymphocytes (Bld) [#/Vol] 2.5 10*3/uL 1.00-4.8 [facility] Lymphocytes/100 WBC Auto (Bl d)Ordered By: Luis Ramirez on 01-14-2023 Lymphocytes/100 WBC (Bld) 31.1 % . [facility] MCH Auto (RBC) [Entitic mass ]Ordered By: Luis Ramirez on 01-14-2023 MCH (RBC) [Entitic mass] 30.7 pg 24.7-34.3 [facility] MCHC Auto (RBC) [Mass/Vol]Or dered By: Luis Ramirez on 01-14-2023 MCHC (RBC) [Mass/Vol] 33.7 g/dL 32.0-35.0 [facility] MCV Auto (RBC) [Entitic vol] Ordered By: Luis Ramirez on 01-14-2023 MCV (RBC) [Entitic vol] 91.0 fL 80-100 [facility] [place] Monocytes Auto (Bld) [#/Vol] Ordered By: Luis Ramirez on 01-14-2023 Monocytes (Bld) [#/Vol] 0.4 10*3/uL 0.0-0.8 [facility] Monocytes/100 WBC Auto (Bld) Ordered By: Luis Ramirez on 01-14-2023 Monocytes/100 WBC (Bld) 4.8 % . [facility] [place] Neutrophils Auto (Bld) [#/Vo l]Ordered By: Luis Ramirez on 01-14-2023 Neutrophils (Bld) [#/Vol] 5.1 10*3/uL 1.8-7.7 [facility] Neutrophils/100 WBC Auto (Bl d)Ordered By: Luis Ramirez on 01-14-2023 Neutrophils/100 WBC (Bld) 62.5 % . [facility] No Panel InformationOrdered By: Luis Ramirez on 01-14-2023 Estimated GFR (CKD-EPI) > 60.0 mL/Min [facility] Creatinine Clearance (Chem N/A [facility] Nucleated erythrocytes [Pres ence] in Blood by Automated countOrdered By: Luis Ramirez on 01-14-2023 Nucleated RBC Auto Ql (Bld) 0.1 /100{WBC} 0-0.5 [facility] Platelet mean volume Auto (B ld) [Entitic vol]Ordered By: Luis Ramirez on 01-14-2023 Platelet mean volume (Bld) [Entitic vol] 7.8 fL 6.3-10.7 [facility] Platelets Auto (Bld) [#/Vol] Ordered By: Luis Ramirez on 01-14-2023 Platelets (Bld) [#/Vol] 256 10*3/uL 150-450 [facility] Potassium [Moles/volume] in Serum or PlasmaOrdered By: Luis Ramirez on 01-14-2023 Potassium [Moles/Vol] 4.8 mmol/L 3.5-5.1 [facility] Protein [Mass/volume] in Ser um or PlasmaOrdered By: Luis Ramirez on 01-14-2023 Protein [Mass/Vol] 7.0 g/dL 6.4-8.9 [facility] RBC Auto (Bld) [#/Vol]Ordere d By: Luis Ramirez on 01-14-2023 RBC (Bld) [#/Vol] 4.60 10*6/uL 3.60-5.00 [facility] Serum or plasma albumin/glob ulin mass ratioOrdered By: Luis Ramirez on 01-14-2023 Albumin/Globulin [Mass ratio] 1.5 {ratio} [facility] Serum or plasma anion gap de terminationOrdered By: Luis Ramirez on 01-14-2023 Anion gap [Moles/Vol] 11.2 mmol/L 6.0-15.0 [facility] Serum or plasma high density lipoprotein (HDL) cholesterol measurementOrdered By: Luis Ramirez on 01-14-2023 Cholesterol in HDL [Mass/Vol] 47 mg/dL 23-92 [facility] Comment on above: HDL CHOL ATP-III CLA SSIFICATION Cardiovascular RiskHDL > or equal to 60 mg/dL LOWHDL < 40 mg/dL HIGH Serum or plasma non-glucuron idated bilirubin measurement (mass/volume)Ordered By: Luis Ramirez on 01-14-2023 Bilirubin.indirect [Mass/Vol] 0.7 mg/dL [facility] Serum or plasma total choles terol/high density lipoprotein (HDL) cholesterol mass ratOrdered By: Luis Ramirez on 01-14-2023 Cholesterol.total/Flory sterol in HDL [Mass ratio] 2.9 {ratio} <5.0 [facility] Sodium [Moles/volume] in Ser um or PlasmaOrdered By: Luis Ramirez on 01-14-2023 Sodium [Moles/Vol] 138 mmol/L 136-145 [facility] Triglyceride [Mass/volume] i n Serum or PlasmaOrdered By: Luis Ramirez on 01-14-2023 Triglyceride [Mass/Vol] 117 mg/dL 0-149 [facility] [place] Comment on above: TRIG ATP III CLASSIF ICATIONTRIG less than 150 mg/dL NormalTRIG 150-199 mg/dL Borderline highTRIG 200-500 mg/dL High TRIG greater than 500 mg/dL Very highStandard traceable to the Center for Disease Conrtrol and Prevention (CDC) test method. Urea nitrogen [Mass/volume] in Serum or PlasmaOrdered By: Luis Ramirez on 01-14-2023 Urea nitrogen [Mass/Vol] 19 mg/dL 7-25 [facility] WBC Auto (Bld) [#/Vol]Ordere d By: Luis Ramirez on 01-14-2023 WBC (Bld) [#/Vol] 8.1 10*3/uL 3.8-11.6 [facility] Cholesterol [Mass/volume] in Serum or PlasmaOrdered By: Luis Ramirez on 07-25-2022 Cholesterol [Mass/Vol] 148 mg/dL 140-200 [facility] Comment on above: Chol less than 200 m g/dl low riskChol 201-239 mg/dl borderline riskChol 240 mg/dl and greater high risk Cholesterol in LDL Calc [Mas s/Vol]Ordered By: Luis Ramirez on 07-25-2022 Cholesterol in LDL [Mass/Vol] 82 mg/dL 0-100 [facility] Comment on above: LDL ATP III CLASSIFI CATIONLDL less than 100 mg/dL OptimalLDL 100-129 mg/dL Near or above optimalLDL 130-159 mg/dL Borderline highLDL 160-189 mg/dL HighLDL greater than 189 mg/dL Very high Cholesterol in VLDL Calc [Ma ss/Vol]Ordered By: Luis Ramirez on 07-25-2022 Cholesterol in VLDL [Mass/Vol] 13 mg/dL [facility] Glucose mean value [Mass/vol ume] in Blood Estimated from glycated hemoglobinOrdered By: Luis Ramirez on 07-25-2022 Average glucose Estimated from glycated hemoglobin (Bld) [Mass/Vol] 120 mg/dL [facility] Hemoglobin A1c percentageOrd ered By: Luis Ramirez on 07-25-2022 HbA1c (Bld) [Mass fraction] 5.8 % 4.3-5.6 [facility] Comment on above: Increased risk for d iabetes: 5.7 - 6.4diabetes: >6.4glycemic control for adults with diabetes: <7.0 Serum or plasma high density lipoprotein (HDL) cholesterol measurementOrdered By: Luis Ramirez on 07-25-2022 Cholesterol in HDL [Mass/Vol] 53 mg/dL 35-85 [facility] Comment on above: HDL CHOL ATP-III CLA SSIFICATION Cardiovascular RiskHDL > or equal to 60 mg/dL LOWHDL < 40 mg/dL HIGH Serum or plasma total choles terol/high density lipoprotein (HDL) cholesterol mass ratOrdered By: Luis Ramirez on 07-25-2022 Cholesterol.total/Flory sterol in HDL [Mass ratio] 2.8 {ratio} <5.0 [facility] Triglyceride [Mass/volume] i n Serum or PlasmaOrdered By: Luis Ramirez on 07-25-2022 Triglyceride [Mass/Vol] 67 mg/dL 35-149 [facility] [place] Comment on above: TRIG ATP III CLASSIF ICATIONTRIG less than 150 mg/dL NormalTRIG 150-199 mg/dL Borderline highTRIG 200-500 mg/dL High TRIG greater than 500 mg/dL Very highStandard traceable to the Center for Disease Conrtrol and Prevention (CDC) test method. Stool Occult Bl. Scr. (Guaia c)on 10-19-2021 Hemoglobin.gastrointest inal Ql (Stl) NEG X 3 [facility] Other Urine 10 SGon 08-07-2021 Albumin DL <= 20 mg/L (U) [Mass/Vol] 30 mg/dL [facility] Other Albumin DL <= 20 mg/L (U) [Mass/Vol] Negative [facility] Other pH (U) 5 [pH] [facility] Other Urine 10 SG normail [facility] Other Urine 10 SG Negative [facility] Other Urine 10 SG 1.005 [facility] Other Urine 10 SG normal [facility] Other Urine 10 SGon 07-20-2021 Albumin DL <= 20 mg/L (U) [Mass/Vol] 30 mg/dL [facility] Other Albumin DL <= 20 mg/L (U) [Mass/Vol] + [facility] Other pH (U) 5 [pH] [facility] Other Urine 10 SG normal [facility] Other Urine 10 SG Negative [facility] Other Urine 10 SG 1.020 [facility] Other Consent for COVID Vaccineon 10-07-2020 SARS-CoV-2 (COVID-19) RNA PUJA+probe Ql (Unsp spec) [id number]#1 .00CD:127 [facility] Consent for COVID Vaccineon 09-17-2020 SARS-CoV-2 (COVID-19) RNA PUJA+probe Ql (Unsp spec) [id number] #1.00CD:127 [facility] Consent for Treatmenton 09-05 Consent for Treatment [id number] #1.00CD:127 [facility] Coding Summary.on 09-15-2020 Coding Summary. CODING DATE: 09/15/2020 FINAL [facility] STATUS: PAYOR: Medicare APC DESCRIPTION [employer] - Level 1B ($11-$20) ADMIT DX: REASON FOR VISIT DX: Z23 Encounter for immunization FINAL DX: PRINCIPAL: Z23 Encounter for immunization SECONDARY: PYMT PROC APC STAT DESCRIPTION DOCTOR NAME DATE NOTE: The code number assigned matches the documented diagnosis and / or procedure in the patient's chart. However, the narrative phrase printed from the coding software may appear abbreviated, or result in slightly different terminology. Coded By: Lashonda Nogueira CphT Date Saved: 09/15/2020 06:55 pm Normal [facility] Vital Signs Date Time Vital Sign Value Performing Clinician Facility 01-24-2024 08:45-0400 Body height 165.1 cm DO Luis Oberer Work Phone: [facility] 01-24-2024 08:45-0400 Body mass index (BMI) [Ratio] 36.1 kg/m2 DO Luis Oberer Work Phone: [facility] 01-24-2024 08:45-0400 Body temperature 98.1 [degF] DO Luis Oberer Work Phone: [facility] 01-24-2024 08:45-0400 Body weight 98.42 kg DO Luis Oberer Work Phone: [facility] 01-24-2024 08:45-0400 Diastolic blood pressure 74 mm[Hg] DO Luis Oberer Work Phone: [facility] 01-24-2024 08:45-0400 Heart rate 79 /min DO Luis Oberer Work Phone: [facility] 01-24-2024 08:45-0400 Respiratory rate 16 /min DO Luis Oberer Work Phone: [facility] 01-24-2024 08:45-0400 SaO2% (BldA) [Mass fraction] 96 % DO Luis Oberer Work Phone: [facility] 01-24-2024 08:45-0400 Systolic blood pressure 122 mm[Hg] DO Luis Oberer Work Phone: [facility] 07-22-2023 09:30-0500 Body height 143.51 cm Luis Oberer Other [facility] Other 07-22-2023 09:30-0500 Body mass index (BMI) [Ratio] 53.51 kg/m2 Luis Oberer Other [facility] Other 07-22-2023 09:30-0500 Body temperature 97.9 [degF] Luis Oberer Other [facility] Other 07-22-2023 09:30-0500 Body weight 110.22 kg Luis Oberer Other [facility] Other 07-22-2023 09:30-0500 Diastolic blood pressure 76 mm[Hg] Luis Oberer Other [facility] Other 07-22-2023 09:30-0500 Respiratory rate 16 /min Luis Oberer Other [facility] Other 07-22-2023 09:30-0500 SaO2% (BldA) [Mass fraction] 96 % Luis Oberer Other [facility] Other 07-22-2023 09:30-0500 Systolic blood pressure 117 mm[Hg] Luis Oberer Other [facility] Other 01-21-2023 08:15-0400 Body height 143.51 cm Luis Oberer Other [facility] Other 01-21-2023 08:15-0400 Body mass index (BMI) [Ratio] 52.99 kg/m2 Luis Oberer Other [facility] Other 01-21-2023 08:15-0400 Body temperature 97.4 [degF] Luis Oberer Other [facility] Other 01-21-2023 08:15-0400 Body weight 109.14 kg Luis Oberer Other [facility] Other 01-21-2023 08:15-0400 Diastolic blood pressure 68 mm[Hg] Luis Oberer Other [facility] Other 01-21-2023 08:15-0400 Respiratory rate 16 /min Luis Oberer Other [facility] Other 01-21-2023 08:15-0400 SaO2% (BldA) [Mass fraction] 95 % Luis Oberer Other [facility] Other 01-21-2023 08:15-0400 Systolic blood pressure 106 mm[Hg] Luis Oberer Other [facility] Other 01-25-2022 10:15-0400 Body height 143.51 cm Luis Oberer Other [facility] Other 01-25-2022 10:15-0400 Body mass index (BMI) [Ratio] 52.94 kg/m2 Luis Oberer Other [facility] Other 01-25-2022 10:15-0400 Body temperature 98.2 [degF] Luis Oberer Other [facility] Other 01-25-2022 10:15-0400 Body weight 109.05 kg Luis Oberer Other [facility] Other 01-25-2022 10:15-0400 Diastolic blood pressure 65 mm[Hg] Luis Oberer Other [facility] Other 01-25-2022 10:15-0400 Respiratory rate 16 /min Luis Oberer Other [facility] Other 01-25-2022 10:15-0400 SaO2% (BldA) [Mass fraction] 97 % Luis Oberer Other [facility] Other 01-25-2022 10:15-0400 Systolic blood pressure 122 mm[Hg] Luis Oberer Other [facility] Other 11-17-2021 11:00-0400 Body height 143.51 cm Luis Oberer Other [facility] Other 11-17-2021 11:00-0400 Body mass index (BMI) [Ratio] 53.51 kg/m2 Luis Oberer Other [facility] Other 11-17-2021 11:00-0400 Body temperature 97.9 [degF] Luis Oberer Other [facility] Other 11-17-2021 11:00-0400 Body weight 110.22 kg Luis Oberer Other [facility] Other 11-17-2021 11:00-0400 Diastolic blood pressure 74 mm[Hg] Luis Oberer Other [facility] Other 11-17-2021 11:00-0400 Respiratory rate 18 /min Luis Oberer Other [facility] Other 11-17-2021 11:00-0400 SaO2% (BldA) [Mass fraction] 97 % Luis Oberer Other [facility] Other 11-17-2021 11:00-0400 Systolic blood pressure 126 mm[Hg] Luis Oberer Other [facility] Other 10-26-2021 14:45-0400 Body height 143.51 cm Luis Oberer Other [facility] Other 10-26-2021 14:45-0400 Body mass index (BMI) [Ratio] 54.26 kg/m2 Luis Oberer Other [facility] Other 10-26-2021 14:45-0400 Body temperature 98.4 [degF] Luis Oberer Other [facility] Other 10-26-2021 14:45-0400 Body weight 111.77 kg Luis Oberer Other [facility] Other 10-26-2021 14:45-0400 Diastolic blood pressure 74 mm[Hg] Luis Oberer Other [facility] Other 10-26-2021 14:45-0400 Respiratory rate 16 /min Luis Oberer Other [facility] Other 10-26-2021 14:45-0400 SaO2% (BldA) [Mass fraction] 97 % Luis Oberer Other [facility] Other 10-26-2021 14:45-0400 Systolic blood pressure 127 mm[Hg] Luis Oberer Other [facility] Other 07-20-2021 10:00-0500 Body height 143.51 cm Luis Oberer Other [facility] Other 07-20-2021 10:00-0500 Body mass index (BMI) [Ratio] 52.85 kg/m2 Luis Oberer Other [facility] Other 07-20-2021 10:00-0500 Body temperature 97.8 [degF] Luis Oberer Other [facility] Other 07-20-2021 10:00-0500 Body weight 108.86 kg Luis Oberer Other [facility] Other 07-20-2021 10:00-0500 Diastolic blood pressure 84 mm[Hg] Luis Oberer Other [facility] Other 07-20-2021 10:00-0500 Respiratory rate 16 /min Luis Oberer Other [facility] Other 07-20-2021 10:00-0500 SaO2% (BldA) [Mass fraction] 94 % Luis Oberer Other [facility] Other 07-20-2021 10:00-0500 Systolic blood pressure 126 mm[Hg] Luis Oberer Other [facility] Other Encounters Encounter Date Encounter Type Care Provider Facility Start: 03-20-2024 End: 03-20-2024 Patient encounter procedure DO Luis Oberer Work Phone: [facility] Work Phone: Start: 03-20-2024 End: 03-20-2024 ambulatory DO Luis Oberer Work Phone: [facility] Work Phone: Start: 01-24-2024 End: 01-24-2024 ambulatory DO Luis Oberer Work Phone: [facility] Work Phone: Start: 01-24-2024 End: 01-24-2024 Encounter for general adult medical examination without abnormal findings DO Luis Oberer Work Phone: [facility] Start: 01-24-2024 End: 01-24-2024 Patient encounter procedure DO Luis Oberer Work Phone: [facility] [place] Work Phone: Start: 01-17-2024 End: 01-17-2024 Patient encounter procedure DO Luis Oberer Work Phone: [facility] [place] Work Phone: Start: 01-17-2024 End: 01-17-2024 ambulatory DO Luis Oberer Work Phone: [facility] Work Phone: Start: 12-18-2023 Non-patient / Non-visit DO Georges l Oberer Work Phone: [facility] Work Phone: Start: 07-30-2023 End: 07-30-2023 Patient encounter procedure DO Luis Oberer Work Phone: [facility] [place] Work Phone: Start: 07-30-2023 End: 07-30-2023 ambulatory DO Luis Oberer Work Phone: [facility] Work Phone: Start: 07-22-2023 End: 07-22-2023 ambulatory Luis Oberer Other [employer] [facility] [employer] Other Start: 07-22-2023 Office outpatient vi sit 25 minutes Luis Oberer [facility] Start: 07-22-2023 End: 07-22-2023 Patient encounter procedure DO Luis Oberer Work Phone: [facility] Work Phone: Start: 07-15-2023 End: 07-15-2023 Patient encounter procedure DO Luis Oberer Work Phone: [facility] [place] Work Phone: Start: 07-15-2023 End: 07-15-2023 ambulatory DO Luis Oberer Work Phone: [facility] Work Phone: Start: 03-25-2023 End: 03-25-2023 ambulatory Luis Oberer Other [facility] Other Start: 03-25-2023 Telephone encounter Luis Oberer [facility] Start: 02-28-2023 End: 02-28-2023 ambulatory Luis Oberer Other [facility] Other Start: 02-28-2023 Telephone encounter Luis Oberer [facility] Start: 01-21-2023 End: 01-21-2023 ambulatory Luis Oberer Other [facility] Other Start: 01-21-2023 Encounter for genera l adult medical examination without abnormal findings Luis Oberer [facility] Start: 01-21-2023 Patient encounter procedure Luis Oberer [facility] Start: 01-14-2023 End: 01-14-2023 ambulatory DO Luis Oberer Work Phone: [facility] Work Phone: Start: 01-14-2023 End: 01-14-2023 Patient encounter procedure DO Luis Oberer Work Phone: [facility] [place] Work Phone: Start: 11-06-2022 End: 11-06-2022 ambulatory Luis Oberer Other [employer] Other Start: 11-06-2022 Telephone encounter Luis Oberer [facility] Start: 07-25-2022 End: 07-25-2022 ambulatory DO Luis Oberer Work Phone: [facility] Work Phone: Start: 07-25-2022 End: 07-25-2022 Patient encounter procedure DO Luis Oberer Work Phone: [facility] [place] Work Phone: Start: 06-13-2022 End: 06-13-2022 ambulatory DO Luis Oberer Work Phone: [facility] Work Phone: Start: 06-13-2022 End: 06-13-2022 Patient encounter procedure DO Luis Oberer Work Phone: [facility] Start: 02-15-2022 End: 02-15-2022 ambulatory Luis Oberer Other [employer] Other Start: 02-15-2022 Telephone encounter Luis Oberer [facility] Start: 01-25-2022 End: 01-25-2022 ambulatory Luis Oberer Other [employer] Other Start: 01-25-2022 Office outpatient vi sit 25 minutes Luis Oberer [facility] Start: 11-17-2021 End: 11-17-2021 ambulatory Luis Oberer Other [employer] Other Start: 11-17-2021 Office outpatient vi sit 15 minutes Luis Oberer [facility] Start: 10-26-2021 End: 10-26-2021 ambulatory Luis Oberer Other [employer] Other Start: 10-26-2021 Office outpatient vi sit 15 minutes Luis Oberer [facility] Start: 10-19-2021 End: 10-19-2021 ambulatory Luis Oberer Other [employer] Other Start: 10-19-2021 Nursing evaluation o f patient and report Luis Oberer [facility] Start: 08-07-2021 End: 08-07-2021 ambulatory Luis Oberer Other [employer] Other Start: 08-07-2021 Follow-up encounter Luis Oberer [facility] Start: 07-20-2021 End: 07-20-2021 ambulatory Luis Oberer Other [facility] Other Start: 07-20-2021 Encounter for genera l adult medical examination without abnormal findings [facility] Start: 07-20-2021 Patient encounter procedure Luis Oberer [facility] Procedures Date Procedure Procedure Detail Performing Clinician Start: 03-20-2024 Screening mammograph y of bilateral breasts DO Luis Oberer Work Phone: Start: 06-13-2022 Dual energy X-ray absorptiometry DO Luis Oberer Work Phone: Plan of Treatment Date Care Activity Detail Author Hepatic function panel [facility] Patient Education Asthma in adul ts Colon and rectal cancer screening [facility] Work Phone: [facility] Immunizations Immunization Date Immunization Notes Care Provider Fa cility 04-05-2023 RSV, preF3, adj, pf DO Luis Oberer Work Phone: [facility] 03-28-2023 Fluzone QIV High-Dos e 65YR+ DO Luis Oberer Work Phone: [facility] 03-26-2022 influenza, seasonal, injectable Luis Oberer Other [facility] 03-26-2022 Fluzone QIV High-Dos e 65YR+ DO Luis Oberer Work Phone: [facility] 10-31-2021 zoster vaccine recombinant DO Luis Oberer Work Phone: [facility] 07-21-2021 zoster vaccine recombinant DO Luis Oberer Work Phone: [facility] 07-21-2021 zoster vaccine, live Luis Ob erer Other [facility] 04-24-2021 COVID-19 Vaccine Pfi zer - Documentation Purposes Only Luis Oberer Other [facility] 04-10-2021 influenza, seasonal, injectable Luis Oberer Other [facility] MDLIVE Other 04-10-2021 influenza, injectabl e, quadrivalent, preservative free Luis Oberer Other [facility] 04-10-2021 Fluzone QIV High-Dos e 65YR+ DO Luis Oberer Work Phone: [facility] 04-10-2021 pneumococcal conjuga te vaccine, 13 valent Luis Oberer Other [facility] 04-10-2021 influenza, seasonal, injectable Luis Oberer Other [facility] 09-30-2020 COVID-19 Vaccine Pfi zer - Documentation Purposes Only Luis Oberer Other [facility] 09-09-2020 COVID-19 Vaccine Pfi zer - Documentation Purposes Only Luis Oberer Other [facility] 05-04-2020 pneumococcal polysaccharide vaccine, 23 valent DO Luis Oberer Work Phone: [facility] 03-10-2020 Fluzone QIV High-Dos e 65YR+ DO Luis Oberer Work Phone: [facility] 03-10-2020 influenza, seasonal, injectable Luis Oberer Other [facility] 04-24-2019 pneumococcal polysaccharide vaccine, 23 valent DO Luis Oberer Work Phone: [facility] 04-24-2019 Seasonal, quadrivale nt, recombinant, injectable influenza vaccine, preservative free DO Luis Oberer Work Phone: [facility] 04-06-2019 influenza, seasonal, injectable Luis Oberer Other [facility] 03-31-2018 influenza, seasonal, injectable Luis Oberer Other [facility] 06-11-2017 pneumococcal polysaccharide vaccine, 23 valent Luis Oberer Other [facility] 03-26-2017 influenza, seasonal, injectable Luis Oberer Other [facility] 03-26-2017 influenza, injectabl e, quadrivalent, preservative free DO Luis Oberer Work Phone: [facility] 04-18-2016 influenza, seasonal, injectable Luis Oberer Other [facility] 03-29-2015 influenza, seasonal, injectable DO Luis Oberer Work Phone: [facility] 03-08-2015 influenza, seasonal, injectable Luis Oberer Other [facility] 02-25-2015 zoster vaccine, live Luis Ob erer Other [facility] 12-17-2014 pneumococcal conjuga te vaccine, 13 valent Luis Oberer Other [facility] 04-07-2014 influenza, seasonal, injectable Luis Oberer Other [facility] 03-27-2013 influenza, seasonal, injectable Luis Oberer Other [facility] 03-27-2012 influenza, seasonal, injectable Luis Oberer Other [facility] 11-20-2011 tetanus toxoid, redu luz marina diphtheria toxoid, and acellular pertussis vaccine, adsorbed Luis Oberer Other [facility] 04-26-2011 influenza, seasonal, injectable Luis Oberer Other [facility] 07-20-2009 novel [id number], preservative-free, injectable DO Luis Oberer Work Phone: [facility] 04-26-2009 influenza, seasonal, injectable Luis Oberer Other [facility] 11-25-2007 influenza, seasonal, injectable Luis Oberer Other [facility] 04-29-2003 pneumococcal polysaccharide vaccine, 23 valent DO Luis Oberer Work Phone: [facility] Payers Date Payer Category Payer Medicare [id number] 2.1 [id number] 2023 Self-pay [id number] 2023 Unknown [id number] 2011 [facility] [id number] Unknown [id number] Unknown [id number] Unknown [id number] [id number] Unknown [id number] Social History Date Type Detail Facility Unknown if ever smoked [employer] Other Sex Assigned At Sex Assigned At Bir th [facility] Other Start: 10-02-2017 End: 07-22-2023 Tobacco smoking status NHIS Never smoked tobacco (finding) [facility] Start: 1955 Sex Assigned At Female F [place] Clinical Notes 07-20-2021 to 07-22-2023 Note Date & Type Note Facility 07-22-2023 Evaluation note Encounter Date Diagnosis Assessment Notes Jul, BMI 50.0-59.9, adult (ICD-10 - Z68.43) Healthy diet, exercise, weight loss encouraged, Heart healthy diet material was published, Heart healthy diet material was published Jul, Mixed hyperlipidemia (ICD-10 - E78.2) Stable, appropriate statin dose, Managing your cholesterol material was published, Managing your cholesterol material was published Jul, Seasonal allergies (ICD-10 - J30.2) Stable on Singulair, Allergic rhinitis home care material was published, Allergic rhinitis home care material was published Jul, Asthma (ICD-10 - J45.909) Stable on Singulair, albuterol, Asthma: adult home care material was published, Asthma action plan material was published Jul, Adjustment disorder with mixed anxiety and depressed mood (ICD-10 - F43.23) At her request, I am going to increase BuSpar from 15 mg up to 20 mg twice daily. Prescribed as indicated. Continue Zoloft 200 mg daily. Call in 1 month if mood not back to her normal., Anxiety: adult home care material was published, Anxiety: adult home care material was published Jul, Osteoporosis (ICD-10 - M81.0) Continue Actonel. Due for DEXA scan June 2024 Jul, Impaired glucose tolerance (ICD-10 - R73.02) Stable. Risk of diabetes discussed. Healthy weight encouraged Jul, Encounter for long-term (current) use of medications (ICD-10 - Z79.899) Jul, Generalized OA (ICD-10 - M15.9) Stable without treatment Jul, Colon cancer screening (ICD-10 - Z12.11) Due for Hemoccult cards next visit, due for mammograms in Jul, Other RTO 6 months preceded by fasting lipid profile, hemoglobin A1c and sooner as needed or pending above [employer] Other 11-09-2023 History general Narrative - Reported* Type Description Date Medical History Asthma-started age 7 Medical History Allergic rhinitis Medical History PMS-Depressive symtoms/mixed moo d disorder Medical History Hypercholesterolemia (2002)-Mixe d hyperlipidemia Medical History Osteoporosis-Dexascan 05/16 Medical History OA Lt Knee (X-Ray) Medical History Impaired glucose intolerance( 20 10) Medical History Hx Limpoma's Surgical History Laparoscopic cholecystectomy Surgical History Rt upper back lipoma excision-P edalino 11/2013 Surgical History Dermatofibroma excised from LT leg-[place] 12/2009 Surgical History Lt knee Arthroplasty 10/2010 Hospitalization History Pneumonia/Asthma 1984 [facility]-probable passed bile duct stone ERCP w/spinchterectomy 11/2006 [employer] Other 07-17-2023 Evaluation note* Encounter Date Diagnosis Assessment Notes Treatment Notes Treatment Clinical Notes Jan, Colon cancer screening (ICD-10 - Z12.11) Colon cancer screening options discussed, colonoscopy ( alfredito ) versus stool sampling ( [facility] ) discussed. I did discuss that if she had a normal colonoscopy, at her age colon cancer screening would be done for life. She elected to take 3 home Hemoccult cards, Cancer tests that can save your life material was published Jan, Breast cancer screening by mammogram (ICD-10 - Z12.31) Discussed there are differences between medical groups about frequency of breast cancer screening. Some recommend yearly, summer recommending every 2 years and low risk women. She thinks she is leaning towards every 2 years. She is due and therefore we will order mammograms. She no longer wants to follow with gynecology, Health screenings for women material was published Jan, Vaccine counseling (ICD-10 - Z71.85) We discussed the recent recommendation of the COVID-vaccine every fall. She remains reluctant but will think about it. Otherwise vaccines up-to-date Jan, Mixed hyperlipidemia (ICD-10 - E78.2) Stable, appropriate statin dose Jan, Seasonal allergies (ICD-10 - J30.2) Stable on current meds Jan, Asthma (ICD-10 - J45.909) Stable on current meds likely optimal baseline Jan, Adjustment disorder with mixed anxiety and depressed mood (ICD-10 - F43.23) Her mood remains excellent on Zoloft and BuSpar. Likely needs long-term Jan, Osteoporosis (ICD-10 - M81.0) She will be due for repeat DEXA scan in June 2024. Continue Actonel, Exercise and bone health material was published Jan, Impaired glucose tolerance (ICD-10 - R73.02) Risk of diabetes discussed. Healthy diet and weight encouraged Jan, Encounter for long-term (current) use of medications (ICD-10 - Z79.899) Jan, Generalized OA (ICD-10 - M15.9) I simply note this on exam. She did not complain of arthritis pains Jan, Family history of Alzheimer's disease (ICD-10 - Z82.0) I see no evidence of dementia on exam today Jan, Obesity due to excess calories without serious comorbidity, unspecified classification (ICD-10 - E66.09) See dictation above Jan, Wellness examination (ICD-10 - Z00.00) Well care discussedSee wellness templateShe states she will consider the yearly fall COVID booster shot. Otherwise vaccines up-to-date.Mammogram s ordered, Hemoccult cards given. Following completion, cancer screening up-to-date. She no longer wants to follow with gynecology and we discussed she has aged out of cervical cancer screening.I recommended POA both financial and healthcare. She took a booklet and states she is going to pick her only child. She does want to remain a full code. She was noncommittal if or when she would want life support stopped if no meaningful evidence or chance of recovery. I encouraged her to think about it and talk with her family/POA about that Jan, Other RTO 6 months preceded by fasting lipid profile, hemoglobin A1c and sooner as needed or pending above. Please send today's labs to Dr. Mckeon. [employer] Other 08-11-2022 Evaluation note* Encounter Date Diagnosis Assessment Notes Treatment Notes Treatment Clinical Notes Feb, Encounter for screening for osteoporosis (ICD-10 - Z13.820) Feb, Adjustment disorder with mixed anxiety and depressed mood (ICD-10 - F43.23) [employer] Other 07-21-2022 Evaluation note* Encounter Date Diagnosis Assessment Notes Treatment Notes Treatment Clinical Notes Jan, Tinea corporis (ICD-10 - B35.4) Discussed this appears to be a tinea corporate lesion on her right arm. She links it perhaps with getting the cat and is going to take it to the vet. We will prescribe Loprox cream. If she has not resolved within several weeks, call and we would switch to steroid treatment. Jan, Seborrheic keratosis (ICD-10 - L82.1) Discussed this looks like a classic seborrheic keratosis left elbow. I did offer excision/biopsy. She elected observation and will call if not doing well. Worrisome symptoms discussed Jan, Facial droop (ICD-10 - R29.810) I did recommend she follow back up with neurology including the MRI/MRA as recommended. Because she is better she thinks she does not want to do so. If she changes her mind, she will call neurology directly Jan, Counseled about COVID-19 virus infection (ICD-10 - Z71.89) Recommended the fourth COVID Pfizer (second booster) vaccine. Discussed past side effect is not predictive of how she will do with the next vaccine Jan, Mixed hyperlipidemia (ICD-10 - E78.2) Stable, appropriate statin dose Jan, Allergic rhinitis (ICD-10 - J30.9) Stable likely optimal baseline on current meds Jan, Asthma (ICD-10 - J45.909) Stable likely optimal baseline on current meds. She did not tolerate inhaled steroids Jan, Adjustment disorder with mixed anxiety and depressed mood (ICD-10 - F43.23) Improved but suboptimal. Increase BuSpar from 10 mg up to 15 mg twice daily. Prescribed as indicated. Call us in 1 month with progress report. Strongly stressed Jan, Osteoporosis (ICD-10 - M81.0) Schedule DEXA scan. Pending results, continue Actonel, calcium, vitamin D Jan, Impaired glucose tolerance (ICD-10 - R73.02) Healthy weight encouraged. Risk of diabetes discussed 21 Benny, 2022 Encounter for long-term (current) use of medications (ICD-10 - Z79.899) Jan, Generalized OA (ICD-10 - M15.9) Stable without treatment Jan, Obesity due to exces s calories without serious comorbidity, unspecified classification (ICD-10 - E66.09) See dictation above Jan, Panic disorder (ICD-10 - F41.0) See dictation above Jan, Other RTO 6 months preceded by fasting lipid profile, hemoglobin A1c and sooner as needed or pending above, Atorvastatin material was published [employer] Other 05-13-2022 Evaluation note* Encounter Date Diagnosis Assessment Notes Treatment Notes Treatment Clinical Notes November, Adjustment disorder with mixed anxiety and depressed mood (ICD-10 - F43.23) We had another long talk about mood, the medical basis and the need to treat it that way. She is quite comfortable with treating. She will continue Wellbutrin and Zoloft as now. Discussed too soon for anxiety/panic to be better on BuSpar. Increased dose from 5 mg up to 10 mg p.o. twice daily. She has a January checkup scheduled with me and we will keep that and RTO sooner as needed November, Panic disorder (ICD-10 - F41.0) See dictation above November, Other RTO Mei as alayna eduled for general recheck and sooner as needed. Once we get her baseline anxiety/depression stable, we will consider preprocedure benzodiazepine for future MRIs or CTs if needed. [employer] Other 04-21-2022 Evaluation note* Encounter Date Diagnosis Assessment Notes Treatment Notes Treatment Clinical Notes Oct, Panic disorder (ICD-10 - F41.0) It appears she is having an acute flare of her chronic lifelong MADIHA with intermittent panic attacks. This unclear what has brought these on so severe. We discussed treatment options. Discussed I do not want to use Xanax because it is addictive. At the point where she elects to go through her brain MRI or CT she could be premedicated with her benzodiazepine on those days. We discussed she will be given something IV at the [facility] on cataract they. She, as above, got too anxious to even go to the procedure and thinks she wants to get things stable and put the cataracts off at least until fall. Continue current Zoloft and Wellbutrin dosing. We will add BuSpar. 5 mg twice daily as prescribed. RTO 2 to 3 weeks and sooner as needed. Potential side effects discussed. We discussed possible as needed treatment in the future as well if things do not go well. Oct, Adjustment disorder with mixed anxiety and depressed mood (ICD-10 - F43.23) See dictation above Oct, Other Buspirone mater ial was published [employer] Other 04-14-2022 Evaluation note* Encounter Date Diagnosis Assessment Notes Treatment Notes Treatment Clinical Notes Oct, Colon cancer screening (ICD-10 - Z12.11) [facility] Other 01-31-2022 Evaluation note* Encounter Date Diagnosis Assessment Notes Treatment Notes Treatment Clinical Notes Jul, Cystitis without hematuria (ICD-10 - N30.90) [facility] Other 01-13-2022 Evaluation note* Encounter Date Diagnosis Assessment Notes Treatment Notes Treatment Clinical Notes Jul, Dysuria (ICD-10 - R30.0) Jul, Cystitis without hematuria (ICD-10 - N30.90) Her dipstick UA shows leukocytes, microscopic shows moderate bacteria. Macrobid as prescribed. Repeat UA in 10 days. Jul, Mixed hyperlipidemia (ICD-10 - E78.2) Stable, appropriate statin dose Jul, Allergic rhinitis (ICD-10 - J30.9) Stable on Singulair, Flonase, Kaylen likely optimal baseline Jul, Asthma (ICD-10 - J45.909) Stable likely optimal baseline. We have discussed before that she is using Ventolin more often than would be recommended for excellent asthma control. However she did not tolerate inhaled steroids. She feels control is excellent even though she is needing albuterol HFA daily. Jul, Adjustment disorder with mixed anxiety and depressed mood (ICD-10 - F43.23) Stable on current meds likely optimal baseline, chronic Jul, Osteoporosis (ICD-10 - M81.0) Continue Actonel, due for repeat DEXA scan May this year. Jul, Impaired glucose tolerance (ICD-10 - R73.02) Hemoglobin A1c normal. Risk of diabetes discussed. Healthy weight encouraged. Jul, Encounter for long-term (current) use of medications (ICD-10 - Z79.899) Jul, Generalized OA (ICD-10 - M15.9) Stable likely optimal baseline on current meds Jul, Obesity due to excess calories without serious comorbidity, unspecified classification (ICD-10 - E66.09) See dictation above Jul, Facial droop (ICD-10 - R29.810) We discussed that this combined with her left eyelid and cheek twitching needs to be worked up. We do consider Cardoso's palsy but we also consider other etiologies including other cranial nerve palsy, tumor, etc. Discussed she may need further imaging. I will refer [facility] to [facility] and defer to them what kind of work-up is needed. Jul, Wellness examination (ICD-10 - Z00.00) Well care discussed She needs the Shingrix, I recommended at the drugstore. Otherwise vaccines up-to-date Breast cancer screening up-to-date. I gave her 3 home Hemoccult cards today. She declined colonoscopy. She has a living well but does not think she has a power of assistant city attorney. She states that she is going to pick her son. I encouraged her to formalize POA and this was discussed at length. She does want to remain a full code. She was noncommittal about if or how long she would want life support stopped if no meaningful evidence of recovery. I encouraged her to talk with her family/POA about this Jul, Penicillin allergy (ICD-10 - Z88.0) She told me she only has a little bit of breathing difficulty after taking penicillin and that it does not last long. However, discussed we should list this as an allergy and should not prescribe it. Jul, Other Nitrofurantoin material was published Please send today's EMR note to [facility] RTO 10 days to recheck UA, follow-up UTI RTO 6 months preceded by fasting CBC, BMP, hepatic panel, lipid profile, hemoglobin A1c and sooner as needed or pending above. [employer] Other Evaluation noteNo assessment information available [facility] Work Phone: Evaluation noteNo Information[facility] Other Evaluation note* Diagnosis Onset Date Resolution Status Adjustment disorder with mix ed anxiety and depressed mood acute Asthma acute Generalized OA acute Impaired glucose tolerance a cute Mixed hyperlipidemia acute Osteoporosis acute Panic disorder acute Seasonal allergies acute Colon cancer screening nonea ctive Wellness examination noneact janee Breast cancer screening none active [facility] Work Phone: [facility] general Narrative - Reported* Type Description Date Medical History Asthma-started age 7 Medical History Allergic rhinitis Medical History PMS-Depressive symtoms/mixed moo d disorder Medical History Hypercholesterolemia (2002)-Mixe d hyperlipidemia 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[place] Medical History Osteoporosis-Dexascan 05/16 Medical History OA Lt Knee (X-Ray) Medical History Impaired glucose intolerance( 20 10) Medical History Hx Limpoma's Surgical History Laparoscopic cholecystectomy Surgical History Rt upper back lipoma excision-P edalino 11/2013 Surgical History Dermatofibroma excised from LT leg-[place] 12/2009 Surgical History Lt knee Arthroplasty 10/2010 Hospitalization History Pneumonia/Asthma 1985 [facility]d pain-probable passed bile duct stone ERCP w/spinchterectomy 11/2006 [facility] Other Summary Purpose Family History No Family History Records Found Relationship Condition Age at Onset Recorded Date/T carla brother Heart disease Unknown Malignant neoplasm Unknown father Unknown Alzheimer's disease Unknown Heart disease Unknown mother Family history of mental disorder Unknown Hypertension Unknown Unknown son Unknown Advance Directives No Advanced Directives Records Found Advance Directive Response Recorded Date/ Time Advance Directives No June 11, 2017 7:12pm Advance Directive Response Recorded Date/ Time Advance Directives No June 11, 2017 8:12pm Reason for Referral Reason Facial droop Diagnosis 1 Facial droop (R29.81 0) Referral Organization [facility] Referring Provider First Name Luis Referring Provider Last Name Oberer Referring Provider Specialty Family Prac lindsey Referred Organization [facility] Referred Address [address] [place] [address] [place],[address] Referred Provider Specialty Neurology Referral Priority Routine Chief Complaint and Reason for Visit Chief Complaint z13.820 Chief Complaint z13.820 R73.02 E78.2 Chief Complaint E78.2;R73.02;Z79.899 Chief Complaint e78.2 r73.02 Chief Complaint e78.2 r73.02 6 Month F/U/Labs l65.8 b35.1 Chief Complaint Amb Documentation e78.2 Chief Complaint Amb Documentation e78.2 SAWV/LABS Chief Complaint e78.2 SAWV/LABS Screening Reason for Visit Adjustment disorder with mixed anxiety and depressed mood Asthma Generalized OA Impaired glucose tolerance Mixed hyperlipidemia Osteoporosis Panic disorder Seasonal allergies Colon cancer screening Wellness examination Breast cancer screening Additional Source Comments INFORMATION SOURCE (unrecogn ized section and content) DATE CREATED AUTHOR 12/31/2020 [place] [facility] DATE CREATED AUTHOR AUTHOR'S ORGANIZ ATION 03/27/2024 [facility] REASON FOR VISIT (unrecogniz ed section and content) 6 month Follow up, Mood- goo d TS, advance plan, asthma- no issues, under control TS, albuterol, pharmacy- [facility] TS, Medicare Well Exam #1, KLO Medicare AWV, UTI since booster, cranberry juice, lower back pain bilat, itching, some burning, AZO not much help TS, Left eye twitches, lower part of cheek doing it also, has had for along time, just seems constant now. TS, Pfizer COVID booster, Zostavax 2014, Allergies, DEXA scan May 2019, Negative mammogram January, once every 3 years, no breast exams, Hemoccult last , patient is asymptomatic states that she is feeling much better not seen by Dr. Ramirez6 month Follow up, Mood- good TS, advance plan, asthma- no issues, under control TS, albuterol, pharmacy- [facility] TS, Medicare Well Exam #1, KLO Medicare AWV, UTI since booster, cranberry juice, lower back pain bilat, itching, some burning, AZO not much help TS, Left eye twitches, lower part of cheek doing it also, has had for along time, just seems constant now. TS, Pfizer COVID booster, Zostavax 2014, Allergies, DEXA scan May 2019, Negative mammogram January, once every 3 years, no breast exams, Hemoccult last Marchhemocult cardspanic attacks pt went to go get MRI had a panic attack then tried to have a CT and had a panic attack. She was to have cataract surgery and had a panic attack and her surgery was canceled Pt wakes up in the middle of the night with panic attacks LB, pharmacy [facility] LB2-3 WEEKS6 month Follow up, fall risk none LB, rash for 2 weeks on medial rt fore arm itching OTC benedryl gel with mild relief LB, pharmacy [facility] LB, has dark spot on lt elbow has had for years wants it looked at LB, Asthma, allergies, albuterol nebulization, HFA, Mood, BuSpar added, DEXA scan, 2018, Third Pfizer April 2021, Facial droop, neurology, twitching, Dr. Santana November ordered MRI/MRA braindexa scan, buspironeNEEDS LABS FAXED6 month Follow up, pharmacy: [facility]. lfr, refills: Ventolin HFA. lfr, ADV DIR: none on file - jld, pneumo 23 06.11.17, prevnar 13 04.10.21 - jld, colonoscopy: none - jld, mammogram 05.12.21 - jld, flu shot: 04.10.21 - jld last one 03-26-22. lfr, COVID booster x1 - jld, Zoster 07.21.21 - jld, KLO Medicare AWV, Pt states she has no other issues at this time. lfr, Allergies, asthma, HFA, DEXA scan June 2022 peak T score -2.3 femur, repeat 2 years, Mood, Gynecology, July Dr. Mckeon left second nail dystrophy, observe, remove if symptomatichemoccult resultsMAMMOGRAM RESULTS6 MONTH F/U/LABS, NEXT OV AWV AFTER 01.22.24, Pharmacy: [facility] [place]. lfr, Refills: No. lfr, Colonoscopy: none lfr, Flu shot: 03-28-23. lfr, COVID booster x1 -lfr, Zoster: 07-21-21. lfr, Pneumo 23: 06-11-17, Prevnar 13: 04-10-21. lfr, Mammogram: 03-19-23. lfr, RSV vac: 04-05-23. lfr, Pt states she would like to discuss an increase for her Buspirone 15mg. Pt has been feeling depressed, states she knows symptoms are there. No other issues at this time. lfr, DEXA scan, Actonel, DEXA scan June 2022 peak T-score -2.3, due next June, Gynecology, no more, Asthma, allergies, Ventolin, OA, Negative mammogram January, Negative Hemoccult February, Dr. Mckeon, started Aldactone at least 1 year for alopecia Care Teams (unrecognized sec tion and content) Team Status: Active Member Role Status Dates Luis Ramirez DO Primary Care Provider Active Team Status: Active Member Role Status Dates Luis Ramirez DO Primary Care Provider Active St art: December 18, 2023 Katerina Banegas LPN Attending Provider Active Start: December 18, 2023 Team Status: Inactive Member Role Status Dates Luis Ramirez DO Primary Care Provide r, Attending Provider Active Start: January 17, 2024 End: January 17, 2024 Team Status: Inactive Member Role Status Dates Luis Ramirez DO Primary Care Provider, Attending Prov ider Active Team Status: Inactive Member Role Status Dates Luis Ramirez DO Primary Care Provide r, Attending Provider Active Start: July 15, 2023 End: July 15, 2023 Team Status: Inactive Member Role Status Dates Luis Ramirez DO Attending Provider Active Start : July 22, 2023 End: July 22, 2023 Team Status: Inactive Member Role Status Dates Luis Ramirez DO Primary Care Provider Active St art: July 30, 2023 End: July 30, 2023 Matt Mckeon DO Attending Provider Active Sta rt: July 30, 2023 End: July 30, 2023 Team Status: Active Member Role Status Dates Matt Mckeon DO Specialist Active Luis Ramirez DO Primary Care Provider Active Team Status: Inactive Member Role Status Dates Luis Ramirez DO Primary Care Provide r, Attending Provider Active Start: January 24, 2024 End: January 24, 2024 Team Status: Inactive Member Role Status Dates Luis Ramirez DO Primary Care Provide r, Referring Provider Active Start: March 20, 2024 End: March 20, 2024 Referral Self Attending Provider Active Start: S eptember 2023 End: March 20, 2024 Goals (unrecognized section and content) Goals may be documented in a n alternate section FOR RECORDS PERTAINING TO PATIENTS WHO ARE OR HAVE BEEN ENROLLED IN A CHEMICAL DEPENDENCY/SUBSTANCEABUSE PROGRAM, SOME INFORMATION MAY BE OMITTED. This clinical summary was aggregated from multiple sources. Caution should be exercised in using it in the provision of clinical care. This summary normalizes information from multiple sources, and as a consequence, information in this document may materially change the coding, format and clinical context of patient data. In addition, data may be omitted in some cases. CLINICAL DECISIONS SHOULD BE BASED ON THE PRIMARY CLINICAL RECORDS. [employer] [facility]. provides no warranty or guarantee of the accuracy or completeness of information in this document.
== END 2024-07-20 10:07 | disposition home or self-care (01) ==
LOC: EC 10:07
PROVIDERS: Family Provider Family Medicine; PCP Family Medicine; Visit Provider Orthopaedic Surgery
DX: M25.511 Pain in right shoulder (principal)
CPT/HCPCS: 73030

== ENCOUNTER 2024-07-27 11:48 | Outpatient (OUT) | payer MEDICARE, BC, SELFPAY ==
--- NOTE | 2024-07-27 | XR_ITS ---
The [address] [address] Patient Name: PEPITO ESTRELLA MRN: [id number] date: 1955 Sex: F Assigned Patient Location: Current Patient Location: Accession/Order Number: [id number] Exam Date: 07/27/2024 11:49 Report Date: 07/28/2024 10:54 At the request of: ZAHRA GUTIERREZ Procedure: XR shoulder RT min 2V PROCEDURE: XR shoulder RT min 2V HISTORY: RIGHT SHOULDER PAIN COMPARISON: None. FINDINGS: BONES:Prior transverse fracture through the surgical neck of the right humerus with extension into the tuberosity with stable alignment and slowly increasing density fracture line consistent with ongoing bone healing. Interval appearance of a minimally displaced lateral right fourth, and possibly 5th rib fractures. Degenerative changes of acromioclavicular joint. SOFT TISSUES:No visible soft tissue swelling. EFFUSION:None visible. OTHER: Negative. XR/XR shoulder RT min 2V IMPRESSION: 1. Stable right humerus fracture with ongoing bone healing. 2. Right fourth, and possibly 5th, rib fractures; not visible on prior studies. Electronically authenticated by: ZAHRA LAURA Date: 07/28/2024 10:54
--- OUTSIDE RECORDS SUMMARY | 2024-07-27 12:01 | XMS_ITS | CCD ---
Author Organization [facility] Care Team Providers Care Inside Upholsterer Name Role Phone Oberer, Luis Unavailable Oberer, DO Luis Primary Care Provider Oberer, DO Luis Attending Provider [phone] Oberer, DO Luis Primary Care Provider Oberer, DO Luis Attending Provider [phone] Oberer, DO Luis Primary Care Provider Oberer, DO Luis Attending Provider [phone] Bedocs, Matt M Attending Provider Oberer, DO Luis Primary Care Provider [phone] Oberer, DO Luis Attending Provider Oberer, DO Luis Referring Provider [phone] Self, Referral Attending Provider Unavailable Oberer, Luis [...] (13 sources) Alendronate Drug Allergy GI upset [employer] Other (16 sources) fluticasone Drug Allergy 4 sore throat, dyspnea, sore throat [facility] (12 sources) fluticasone / salmeterol Drug Allergy dyspnea [employer] Other (8 sources) Penicillin V Drug Allergy shortness of breath [facility] [employer] Other (13 sources) salmon calcitonin Drug Allergy Nasal Bleeding [facility] [employer] Other (1 source) fluticasone / salmeterol Drug Allergy dyspnea [facility] [employer] Other (9 sources) Aspirin; Translations: [aspirin] Drug Allergy [address] [facility] (9 sources) Naproxen; Translations: [naproxen] Drug Allergy [address] [facility] (9 sources) Penicillins; Translations: [Penicillins] Allergy to substance 8 Difficulty Breathing, Difficulty Breathing, shortness of breath [facility] (5 sources) Penicillin Drug Allergy shortness of breath [facility] [employer] Other (4 sources) Alendronate; Translations: [alendronate sodium] Drug Allergy [address] [facility] (4 sources) salmeterol; Translations: [salmeterol] Drug Allergy [address] [facility] (4 sources) calcitonin; Translations: [calcitonin] Allergy to substance [address] [facility] (1 source) fluticasone Drug Allergy [address] [facility] Repository Medications Current Medications Medication Drug Class(es) Dates Sig (Normalized) Sig (Original) [id number] 200 actuat albuterol 0.09 mg/actuat metered dose [...] AND EVERY 4 HOURS NEEDED FOR ASTHMA [employer] OFFICER RECOMMENDS NOT EXCEEDING 12 INH/DAY for 90 [...] Start: 07-22-2023 take 2 tablets by mo [facility] every twelve hours busPIRone HCl 10 MG [...] Fluticasone Propionate (Flonase Allergy Relief) 50 mcg/actuation [place],Suspension Active 1 SPRAY INTRANASAL Daily October 02, 2017 12:00am take 2 spray(s) nasal route once daily Flonase 50 MCG/ACT 2 spray in each nostril Nasally Once a day for 90 days Active take 2 spray(s) nasal route once daily Flonase 50 MCG/ACT 2 spray in each nostril Nasally Once a day for 90 days Active L.Rhamnosus-B.Animalis ([employer]) 3 billion cell capsule (2 sources) Start: 01-24-2024 L.Rhamnosus-B.Animalis ([employer]) 3 billion cell capsule Active CAP PO [...] 12 hrs for 10 days Jul, Active [employer] (13 sources) [facility] Orally Active risedronate sodium 150 mg [...] by mouth every six hours Hydrocodone-Acetami nophen ([place]) 5-325 mg tablet Discontinued 1 TAB PO [...] current use of drug therapy; Translations: [Other still operator whiskey (current) drug therapy] 01-08-2024 Episodic Other aftercare (5 sources) Other still operator whiskey (current) drug therapy Onset: 07-20-2021 Resolved: 01-25-2022 [...] n 03-20-2024 MM screening mammo BI w/CAD [facility] [place] [address] Mammography Report Signed Patient: Paula Bone V MR#: [id number] 96 : 1955 Acct:[id number] Age/Sex: 69 / F ADM Date: 03/20/24 Loc: [place] Room: Type: [facility] Attending Dr: Referral Self Copies to: Luis [...] Ruth Valverde M.D.03/20/2024 3:26 PM Dictation Location: [facility] Transcribed By: [facility] 03/20/24 1526 Dictated By: Ruth Valverde MD 03/20/24 1522 Signed By: 03/20/24 1526 Normal [facility] A1C with Estimated Average G amaris 01-17-2024 Glucose [Mass/Vol] 120 mg/dL Normal [facility] Comment on above: Order Comment: Reaso n for Exam Impaired glucose tolerance Result Comment: PERF ORMED BY: [place] [address] PATHOLOGIST ANSWERING SERVICE OPERATOR ELIEZER TEMPLE M.D. Performed By: #### A 1C [facility] #### [address] Cholesterol [Mass/volume] in Serum or PlasmaOrdered By: Luis Ramirez on 01-17-2024 Cholesterol [Mass/Vol] 146 mg/dL Normal 140-200 [facility] Comment on above: Chol less than 200 m g/dl low riskChol 201-239 mg/dl borderline riskChol 240 mg/dl and greater high risk Order Comment: Reaso n for Exam Mixed hyperlipidemia Result Comment: Chol less than 200 mg/dl low risk Chol 201-239 mg/dl borderline risk Chol 240 mg/dl and greater high risk Performed By: #### L IPID #### [facility] [address] Cholesterol in LDL Calc [Mas s/Vol]Ordered By: Luis Ramirez on 01-17-2024 Cholesterol in LDL [Mass/Vol] 70 mg/dL 0-100 [facility] Comment on above: LDL ATP III CLASSIFI CATIONLDL less than 100 mg/dL OptimalLDL 100-129 mg/dL Near or above optimalLDL 130-159 mg/dL Borderline highLDL 160-189 mg/dL HighLDL greater than 189 mg/dL Very high Cholesterol in VLDL Calc [Ma ss/Vol]Ordered By: Luis Ramirez on 01-17-2024 Cholesterol in VLDL [Mass/Vol] 27 mg/dL [facility] Glucose mean value [Mass/vol ume] in Blood Estimated from glycated hemoglobinOrdered By: Luis Ramirez on 01-17-2024 Average glucose Estimated from glycated hemoglobin (Bld) [Mass/Vol] 120 mg/dL [facility] Hemoglobin A1c percentageOrd ered By: Luis Ramirez on 01-17-2024 HbA1c (Bld) [Mass fraction] 5.8 % High 4.3-5.6 [facility] Comment on above: Increased risk for d iabetes: 5.7 - 6.4diabetes: >6.4glycemic control for adults with diabetes: <7.0 Order Comment: Reaso n for Exam Impaired glucose tolerance Result Comment: Incr eased risk for diabetes: 5.7 - 6.4 diabetes: >6.4 glycemic control for adults with diabetes: <7.0 Performed By: #### A 1C WT eA #### [facility] [address] [place] [id number] [facility] Lipid Panelon 01-17-2024 LDL Cholesterol,Calculated 70 mg/dL Normal 0-100 [facility] Comment on above: Order Comment: Alfonsoo n for Exam Mixed hyperlipidemia Result Comment: LDL ATP III CLASSIFICATION LDL less than 100 mg/dL Optimal LDL 100-129 mg/dL Near or above optimal LDL 130-159 mg/dL Borderline high LDL 160-189 mg/dL High LDL greater than 189 mg/dL Very high Performed By: #### L IPID #### [facility] [address] Triglyceride w/Reflex 138 mg/dL Normal 0-149 [facility] Comment on above: Order Comment: Jes n for Exam Mixed hyperlipidemia Result Comment: TRIG ATP III CLASSIFICATION TRIG less than 150 mg/dL Normal TRIG 150-199 mg/dL Borderline high TRIG 200-500 mg/dL High TRIG greater than 500 mg/dL Very high Standard traceable to the Center for Disease Conrtrol and Prevention (CDC) test method. Performed By: #### L IPID #### [facility] [address] VLDL CHOLESTEROL 27 mg/dL Normal [facility] Comment on above: Order Comment: Jes n for Exam Mixed hyperlipidemia Performed By: #### L IPID #### [facility] [address] [place] [id number] [facility] Serum or plasma high density lipoprotein (HDL) cholesterol measurementOrdered By: Luis Ramirez on 01-17-2024 Cholesterol in HDL [Mass/Vol] 48 mg/dL Normal 23-92 [facility] Comment on above: HDL CHOL ATP-III CLA SSIFICATION Cardiovascular RiskHDL > or equal to 60 mg/dL LOWHDL < 40 mg/dL HIGH Order Comment: Alfonsoo n for Exam Mixed hyperlipidemia Result Comment: HDL CHOL ATP-III CLASSIFICATION Cardiovascular Risk HDL > or equal to 60 mg/dL LOW HDL < 40 mg/dL HIGH Performed By: #### L IPID #### [facility] [address] [place] [id number] [facility] Serum or plasma total choles terol/high density lipoprotein (HDL) cholesterol mass ratOrdered By: Luis Ramirez on 01-17-2024 Cholesterol.total/Flory sterol in HDL [Mass ratio] 3.0 {ratio} Normal <5.0 [facility] Comment on above: Order Comment: Reaso n for Exam Mixed hyperlipidemia Result Comment: PERF ORMED BY: [place] [address] PATHOLOGIST ANSWERING SERVICE OPERATOR ELIEZER TEMPLE M.D. Performed By: #### L IPID #### [facility] [address] [place], [place] [id number] [place] Triglyceride [Mass/volume] i n Serum or PlasmaOrdered By: Luis Ramirez on 01-17-2024 Triglyceride [Mass/Vol] 138 mg/dL 0-149 [facility] Comment on above: TRIG ATP III CLASSIF ICATIONTRIG less than 150 mg/dL NormalTRIG 150-199 mg/dL Borderline highTRIG 200-500 mg/dL High TRIG greater than 500 mg/dL Very highStandard traceable to the Center for Disease Conrtrol and Prevention (CDC) test method. Alanine aminotransferase [En zymatic activity/volume] in Serum or PlasmaOrdered By: Matt Mckeon on 07-30-2023 ALT [Catalytic activity/Vol] 14 U/L Normal 7-52 [facility] Comment on above: Result Comment: PERF ORMED BY: [place] [address] PATHOLOGIST ANSWERING SERVICE OPERATOR ELIEZER TEMPLE M.D. Performed By: #### A ST, ALT, K #### [facility] [address] [place] [id number] [place] Aspartate aminotransferase [ Enzymatic activity/volume] in Serum or PlasmaOrdered By: Matt Mckeon on 07-30-2023 AST [Catalytic activity/Vol] 15 U/L Normal 13-39 [facility] Comment on above: Performed By: #### A ST, ALT, K #### [facility] [address] [place] [address] [place] Potassium [Moles/volume] in Serum or PlasmaOrdered By: Matt Mkceon on 07-30-2023 Potassium [Moles/Vol] 4.7 mmol/L Normal 3.5-5.1 [facility] Comment on above: Performed By: #### A ST, ALT, K #### [facility] [address] [place] [address] [place] A1C with Estimated Average G jesusn 07-15-2023 Glucose [Mass/Vol] 117 mg/dL Normal [facility] Comment on above: Order Comment: Reaso n for Exam Impaired glucose tolerance Result Comment: PERF ORMED BY: [place] [address] PATHOLOGIST ANSWERING SERVICE OPERATOR ELIEZER TEMPLE M.D. Performed By: #### A 1C WT eA #### [facility] [address] [place] [address] [place] Cholesterol [Mass/volume] in Serum or PlasmaOrdered By: Luis Ramirez on 07-15-2023 Cholesterol [Mass/Vol] 151 mg/dL Normal 140-200 [facility] Comment on above: Chol less than 200 m g/dl low riskChol 201-239 mg/dl borderline riskChol 240 mg/dl and greater high risk Order Comment: Reaso n for Exam Mixed hyperlipidemia FASTING Result Comment: Chol less than 200 mg/dl low risk Chol 201-239 mg/dl borderline risk Chol 240 mg/dl and greater high risk Performed By: #### L IPID #### [facility] [address] [place] [id number] [facility] Cholesterol in LDL Calc [Mas s/Vol]Ordered By: Luis Ramirez on 07-15-2023 Cholesterol in LDL [Mass/Vol] 71 mg/dL 0-100 [facility] Comment on above: LDL ATP III CLASSIFI CATIONLDL less than 100 mg/dL OptimalLDL 100-129 mg/dL Near or above optimalLDL 130-159 mg/dL Borderline highLDL 160-189 mg/dL HighLDL greater than 189 mg/dL Very high Cholesterol in VLDL Calc [Ma ss/Vol]Ordered By: Luis Ramirez on 07-15-2023 Cholesterol in VLDL [Mass/Vol] 34 mg/dL [facility] Glucose mean value [Mass/vol ume] in Blood Estimated from glycated hemoglobinOrdered By: Luis Ramirez on 07-15-2023 Average glucose Estimated from glycated hemoglobin (Bld) [Mass/Vol] 117 mg/dL [facility] Hemoglobin A1c percentageOrd ered By: Luis Raimrez on 07-15-2023 HbA1c (Bld) [Mass fraction] 5.7 % High 4.3-5.6 [facility] Comment on above: Increased risk for d iabetes: 5.7 - 6.4diabetes: >6.4glycemic control for adults with diabetes: <7.0 Order Comment: Reaso n for Exam Impaired glucose tolerance Result Comment: Incr eased risk for diabetes: 5.7 - 6.4 diabetes: >6.4 glycemic control for adults with diabetes: <7.0 Performed By: #### A 1C WT eA #### [facility] [address] Lipid Panelon 07-15-2023 LDL Cholesterol,Calculated 71 mg/dL Normal 0-100 [facility] Comment on above: Order Comment: Reaso n for Exam Mixed hyperlipidemia FASTING Result Comment: LDL ATP III CLASSIFICATION LDL less than 100 mg/dL Optimal LDL 100-129 mg/dL Near or above optimal LDL 130-159 mg/dL Borderline high LDL 160-189 mg/dL High LDL greater than 189 mg/dL Very high Performed By: #### L IPID #### [facility] [address] Triglyceride w/Reflex 173 mg/dL High 0-149 [facility] Comment on above: Order Comment: Reaso n for Exam Mixed hyperlipidemia FASTING Result Comment: TRIG ATP III CLASSIFICATION TRIG less than 150 mg/dL Normal TRIG 150-199 mg/dL Borderline high TRIG 200-500 mg/dL High TRIG greater than 500 mg/dL Very high Standard traceable to the Center for Disease Conrtrol and Prevention (CDC) test method. Performed By: #### L IPID #### [facility] [address] [place] [id number] [facility] VLDL CHOLESTEROL 34 mg/dL Normal [facility] Comment on above: Order Comment: Alfonsoo n for Exam Mixed hyperlipidemia FASTING Performed By: #### L IPID #### [facility] [address] [place] [id number] [place] Serum or plasma high density lipoprotein (HDL) cholesterol measurementOrdered By: Luis Ramirez on 07-15-2023 Cholesterol in HDL [Mass/Vol] 45 mg/dL Normal 23-92 [facility] Comment on above: HDL CHOL ATP-III CLA SSIFICATION Cardiovascular RiskHDL > or equal to 60 mg/dL LOWHDL < 40 mg/dL HIGH Order Comment: Reaso n for Exam Mixed hyperlipidemia FASTING Result Comment: HDL CHOL ATP-III CLASSIFICATION Cardiovascular Risk HDL > or equal to 60 mg/dL LOW HDL < 40 mg/dL HIGH Performed By: #### L IPID #### [facility] [address] Serum or plasma total choles terol/high density lipoprotein (HDL) cholesterol mass ratOrdered By: Luis Ramirez on 07-15-2023 Cholesterol.total/Flory sterol in HDL [Mass ratio] 3.4 {ratio} Normal <5.0 [facility] Comment on above: Order Comment: Reaso n for Exam Mixed hyperlipidemia FASTING Result Comment: PERF ORMED BY: [place] [address] PATHOLOGIST ANSWERING SERVICE OPERATOR ELIEZER TEMPLE M.D. Performed By: #### L IPID #### [facility] [address] Triglyceride [Mass/volume] i n Serum or PlasmaOrdered By: Luis Ramierz on 07-15-2023 Triglyceride [Mass/Vol] 173 mg/dL 0-149 [facility] Comment on above: TRIG ATP III CLASSIF ICATIONTRIG less than 150 mg/dL NormalTRIG 150-199 mg/dL Borderline highTRIG 200-500 mg/dL High TRIG greater than 500 mg/dL Very highStandard traceable to the Center for Disease Conrtrol and Prevention (CDC) test method. Alanine aminotransferase [En zymatic activity/volume] in Serum or PlasmaOrdered By: Luis Ramirez on 01-14-2023 ALT [Catalytic activity/Vol] 15 U/L 7-52 [facility] Albumin [Mass/volume] in Ser um or Plasma by Bromocresol green (BCG) dye binding methoOrdered By: Luis Ramirez on 01-14-2023 Albumin BCG dye [Mass/Vol] 4.2 g/dL 3.5-5.7 [facility] Alkaline phosphatase [Enzyma tic activity/volume] in Serum or PlasmaOrdered By: Luis Ramirez on 01-14-2023 ALP [Catalytic activity/Vol] 65 U/L 34-104 [facility] Aspartate aminotransferase [ Enzymatic activity/volume] in Serum or PlasmaOrdered By: Luis Ramirez on 01-14-2023 AST [Catalytic activity/Vol] 18 U/L 13-39 [facility] Basophils Auto (Bld) [#/Vol] Ordered By: Luis Obnel on 01-14-2023 Basophils (Bld) [#/Vol] 0.1 10*3/uL 0.0-0.2 [facility] Basophils/100 WBC Auto (Bld) Ordered By: Luis Obnel on 01-14-2023 Basophils/100 WBC (Bld) 0.7 % . [facility] Bilirubin.direct [Mass/volum e] in Serum or PlasmaOrdered By: Luis Ramirez on 01-14-2023 Bilirubin.direct [Mass/Vol] 0.10 mg/dL 0.03-0.18 [facility] Bilirubin.total [Mass/volume ] in Serum or PlasmaOrdered By: Luis Ramirez on 01-14-2023 Bilirubin [Mass/Vol] 0.8 mg/dL 0.3-1.0 [facility] Calcium [Mass/volume] in Ser um or PlasmaOrdered By: Luis Ramirez on 01-14-2023 Calcium [Mass/Vol] 9.8 mg/dL 8.6-10.3 [facility] Carbon dioxide, total [Moles /volume] in Serum or PlasmaOrdered By: Luis Obnel on 01-14-2023 CO2 [Moles/Vol] 27.6 mmol/L 21.0-31.0 [facility] Chloride [Moles/volume] in S daina or PlasmaOrdered By: Luis Obnel on 01-14-2023 Chloride [Moles/Vol] 104 mmol/L 98-107 [facility] Cholesterol [Mass/volume] in Serum or PlasmaOrdered By: Luis Ramirez on 01-14-2023 Cholesterol [Mass/Vol] 135 mg/dL 140-200 [facility] Comment on above: Chol less than 200 m g/dl low riskChol 201-239 mg/dl borderline riskChol 240 mg/dl and greater high risk Cholesterol in LDL Calc [Mas s/Vol]Ordered By: Luis Ramirez on 01-14-2023 Cholesterol in LDL [Mass/Vol] 65 mg/dL 0-100 [facility] Comment on above: LDL ATP III CLASSIFI CATIONLDL less than 100 mg/dL OptimalLDL 100-129 mg/dL Near or above optimalLDL 130-159 mg/dL Borderline highLDL 160-189 mg/dL HighLDL greater than 189 mg/dL Very high Cholesterol in VLDL Calc [Ma ss/Vol]Ordered By: Luis Ramirez on 01-14-2023 Cholesterol in VLDL [Mass/Vol] 23 mg/dL [facility] Creatinine [Mass/volume] in Serum or PlasmaOrdered By: Luis Ramirez on 01-14-2023 Creatinine [Mass/Vol] 0.83 mg/dL 0.60-1.20 [facility] Eosinophils Auto (Bld) [#/Vo l]Ordered By: Luis Ramirez on 01-14-2023 Eosinophils (Bld) [#/Vol] 0.1 10*3/uL 0.0-0.45 [facility] Eosinophils/100 WBC Auto (Bl d)Ordered By: Luis Ramirez on 01-14-2023 Eosinophils/100 WBC (Bld) 0.9 % . [facility] Erythrocyte distribution wid th Auto (RBC) [Ratio]Ordered By: Luis Ramirez on 01-14-2023 Erythrocyte distribution width (RBC) [Ratio] 13.1 % 11.9-15.3 [facility] Globulin Calc (S) [Mass/Vol] Ordered By: Luis Ramirez on 01-14-2023 Globulin (S) [Mass/Vol] 2.8 g/dL [facility] Glucose [Mass/volume] in Ser um or PlasmaOrdered By: Luis Ramirez on 01-14-2023 Glucose [Mass/Vol] 97 mg/dL 70-100 [facility] Comment on above: ADA recommended refe [...] from glycated hemoglobin (Bld) [Mass/Vol] 120 mg/dL [facility] Hematocrit Auto (Bld) [Volum e fraction]Ordered By: Luis Ramirez on 01-14-2023 Hematocrit (Bld) [Volume fraction] 41.8 % 34.0-46.4 [facility] Hemoglobin A1c percentageOrd ered By: Luis Ramirez on 01-14-2023 HbA1c (Bld) [Mass fraction] 5.8 % 4.3-5.6 [facility] Comment on above: Increased risk for d iabetes: 5.7 - 6.4diabetes: >6.4glycemic control for adults with diabetes: <7.0 Hemoglobin [Mass/volume] in BloodOrdered By: Luis Ramirez on 01-14-2023 Hemoglobin (Bld) [Mass/Vol] 14.1 g/dL 11.8-15.4 [facility] Leukocytes [#/volume] correc she for nucleated erythrocytes in Blood by Automated counOrdered By: Luis Ramirez on 01-14-2023 WBC corrected for nucl RBC Auto (Bld) [#/Vol] 8.1 10*3/uL 3.8-11.6 [facility] Lymphocytes Auto (Bld) [#/Vo l]Ordered By: Luis Ramirez on 01-14-2023 Lymphocytes (Bld) [#/Vol] 2.5 10*3/uL 1.00-4.8 [facility] Lymphocytes/100 WBC Auto (Bl d)Ordered By: Luis Ramirez on 01-14-2023 Lymphocytes/100 WBC (Bld) 31.1 % . [facility] MCH Auto (RBC) [Entitic mass ]Ordered By: Luis Ramirez on 01-14-2023 MCH (RBC) [Entitic mass] 30.7 pg 24.7-34.3 [facility] MCHC Auto (RBC) [Mass/Vol]Or dered By: Luis Ramirez on 01-14-2023 MCHC (RBC) [Mass/Vol] 33.7 g/dL 32.0-35.0 [facility] MCV Auto (RBC) [Entitic vol] Ordered By: Luis Ramirez on 01-14-2023 MCV (RBC) [Entitic vol] 91.0 fL 80-100 [facility] Monocytes Auto (Bld) [#/Vol] Ordered By: Luis Ramirez on 01-14-2023 Monocytes (Bld) [#/Vol] 0.4 10*3/uL 0.0-0.8 [facility] Monocytes/100 WBC Auto (Bld) Ordered By: Luis Ramirez on 01-14-2023 Monocytes/100 WBC (Bld) 4.8 % . [facility] Neutrophils Auto (Bld) [#/Vo l]Ordered By: Luis Ramirez on 01-14-2023 Neutrophils (Bld) [#/Vol] 5.1 10*3/uL 1.8-7.7 [facility] Neutrophils/100 WBC Auto (Bl d)Ordered By: Luis Ramirez on 01-14-2023 Neutrophils/100 WBC (Bld) 62.5 % . [facility] No Panel InformationOrdered By: Luis Ramirez on 01-14-2023 Estimated GFR (CKD-EPI) > 60.0 mL/Min [facility] Creatinine Clearance (Chem N/A [facility] Nucleated erythrocytes [Pres ence] in Blood by Automated countOrdered By: Luis Ramirez on 01-14-2023 Nucleated RBC Auto Ql (Bld) 0.1 /100{WBC} 0-0.5 [facility] Platelet mean volume Auto (B ld) [Entitic vol]Ordered By: Luis Ramirez on 01-14-2023 Platelet mean volume (Bld) [Entitic vol] 7.8 fL 6.3-10.7 [facility] Platelets Auto (Bld) [#/Vol] Ordered By: Luis Ramirez on 01-14-2023 Platelets (Bld) [#/Vol] 256 10*3/uL 150-450 [facility] Potassium [Moles/volume] in Serum or PlasmaOrdered By: Luis Ramirez on 01-14-2023 Potassium [Moles/Vol] 4.8 mmol/L 3.5-5.1 [facility] Protein [Mass/volume] in Ser um or PlasmaOrdered By: Luis Ramirez on 01-14-2023 Protein [Mass/Vol] 7.0 g/dL 6.4-8.9 [facility] RBC Auto (Bld) [#/Vol]Ordere d By: Luis Ramirez on 01-14-2023 RBC (Bld) [#/Vol] 4.60 10*6/uL 3.60-5.00 [facility] Serum or plasma albumin/glob ulin mass ratioOrdered By: Luis Ramirez on 01-14-2023 Albumin/Globulin [Mass ratio] 1.5 {ratio} [facility] Serum or plasma anion gap de terminationOrdered By: Luis Ramirez on 01-14-2023 Anion gap [Moles/Vol] 11.2 mmol/L 6.0-15.0 [facility] Serum or plasma high density lipoprotein (HDL) cholesterol measurementOrdered By: Luis Ramirez on 01-14-2023 Cholesterol in HDL [Mass/Vol] 47 mg/dL 23-92 [facility] Comment on above: HDL CHOL ATP-III CLA SSIFICATION Cardiovascular RiskHDL > or equal to 60 mg/dL LOWHDL < 40 mg/dL HIGH Serum or plasma non-glucuron idated bilirubin measurement (mass/volume)Ordered By: Luis Ramirez on 01-14-2023 Bilirubin.indirect [Mass/Vol] 0.7 mg/dL [facility] Serum or plasma total choles terol/high density lipoprotein (HDL) cholesterol mass ratOrdered By: Luis Ramirez on 01-14-2023 Cholesterol.total/Flory sterol in HDL [Mass ratio] 2.9 {ratio} <5.0 [facility] Sodium [Moles/volume] in Ser um or PlasmaOrdered By: Luis Ramirez on 01-14-2023 Sodium [Moles/Vol] 138 mmol/L 136-145 [facility] Triglyceride [Mass/volume] i n Serum or PlasmaOrdered By: Luis Ramirez on 01-14-2023 Triglyceride [Mass/Vol] 117 mg/dL 0-149 [facility] Comment on above: TRIG ATP III CLASSIF ICATIONTRIG less than 150 mg/dL NormalTRIG 150-199 mg/dL Borderline highTRIG 200-500 mg/dL High TRIG greater than 500 mg/dL Very highStandard traceable to the Center for Disease Conrtrol and Prevention (CDC) test method. Urea nitrogen [Mass/volume] in Serum or PlasmaOrdered By: Luis Ramirez on 01-14-2023 Urea nitrogen [Mass/Vol] 19 mg/dL 7-25 [facility] WBC Auto (Bld) [#/Vol]Ordere d By: Luis Ramirez on 01-14-2023 WBC (Bld) [#/Vol] 8.1 10*3/uL 3.8-11.6 [facility] Cholesterol [Mass/volume] in Serum or PlasmaOrdered By: Luis Ramirez on 07-25-2022 Cholesterol [Mass/Vol] 148 mg/dL 140-200 [facility] Comment on above: Chol less than 200 m g/dl low riskChol 201-239 mg/dl borderline riskChol 240 mg/dl and greater high risk Cholesterol in LDL Calc [Mas s/Vol]Ordered By: Luis Ramirez on 07-25-2022 Cholesterol in LDL [Mass/Vol] 82 mg/dL 0-100 [facility] Comment on above: LDL ATP III CLASSIFI CATIONLDL less than 100 mg/dL OptimalLDL 100-129 mg/dL Near or above optimalLDL 130-159 mg/dL Borderline highLDL 160-189 mg/dL HighLDL greater than 189 mg/dL Very high Cholesterol in VLDL Calc [Ma ss/Vol]Ordered By: Luis Ramirez on 07-25-2022 Cholesterol in VLDL [Mass/Vol] 13 mg/dL [facility] Glucose mean value [Mass/vol ume] in Blood Estimated from glycated hemoglobinOrdered By: Luis Ramirez on 07-25-2022 Average glucose Estimated from glycated hemoglobin (Bld) [Mass/Vol] 120 mg/dL [facility] Hemoglobin A1c percentageOrd ered By: Luis Ramirez on 07-25-2022 HbA1c (Bld) [Mass fraction] 5.8 % 4.3-5.6 [facility] Comment on above: Increased risk for d iabetes: 5.7 - 6.4diabetes: >6.4glycemic control for adults with diabetes: <7.0 Serum or plasma high density lipoprotein (HDL) cholesterol measurementOrdered By: Luis Ramirez on 07-25-2022 Cholesterol in HDL [Mass/Vol] 53 mg/dL 35-85 [facility] Comment on above: HDL CHOL ATP-III CLA SSIFICATION Cardiovascular RiskHDL > or equal to 60 mg/dL LOWHDL < 40 mg/dL HIGH Serum or plasma total choles terol/high density lipoprotein (HDL) cholesterol mass ratOrdered By: Luis Ramirez on 07-25-2022 Cholesterol.total/Flory sterol in HDL [Mass ratio] 2.8 {ratio} <5.0 [facility] Triglyceride [Mass/volume] i n Serum or PlasmaOrdered By: Luis Ramirez on 07-25-2022 Triglyceride [Mass/Vol] 67 mg/dL 35-149 [facility] Comment on above: TRIG ATP III CLASSIF ICATIONTRIG less than 150 mg/dL NormalTRIG 150-199 mg/dL Borderline highTRIG 200-500 mg/dL High TRIG greater than 500 mg/dL Very highStandard traceable to the Center for Disease Conrtrol and Prevention (CDC) test method. Stool Occult Bl. Scr. (Guaia c)on 10-19-2021 Hemoglobin.gastrointest inal Ql (Stl) NEG X 3 [facility] Other Urine 10 SGon 08-07-2021 Albumin DL <= 20 mg/L (U) [Mass/Vol] 30 mg/dL [facility] Other Albumin DL <= 20 mg/L (U) [Mass/Vol] Negative [facility] Other pH (U) 5 [pH] [facility] Other Urine 10 SG normail [facility] Other Urine 10 SG Negative [facility] Other Urine 10 SG 1.005 [facility] Other Urine 10 SG normal [facility] Other Urine 10 SGon 07-20-2021 Albumin DL <= 20 mg/L (U) [Mass/Vol] 30 mg/dL [facility] Other Albumin DL <= 20 mg/L (U) [Mass/Vol] + [facility] Other pH (U) 5 [pH] [facility] Other Urine 10 SG normal [facility] Other Urine 10 SG Negative [facility] Other Urine 10 SG 1.020 [facility] Other Consent for COVID Vaccineon 10-07-2020 SARS-CoV-2 (COVID-19) RNA PUJA+probe Ql (Unsp spec) [id number] .00CD:127 [facility] Consent for COVID Vaccineon 09-17-2020 SARS-CoV-2 (COVID-19) RNA PUJA+probe Ql (Unsp spec) [id number] #1.00CD:127 [facility] Consent for Treatmenton 09-05 Consent for Treatment [id number] #1.00CD:127 [facility] Coding Summary.on 09-15-2020 Coding Summary. CODING DATE: 09/15/2020 FINAL [facility] STATUS: PAYOR: Medicare APC DESCRIPTION 1492 New [...] CphT Date Saved: 09/15/2020 06:55 pm Normal [facility] Vital Signs Date Time Vital Sign Value Performing Clinician Facility 01-24-2024 08:45-0400 Body height 165.1 cm DO Luis Oberer Work Phone: [facility] 01-24-2024 08:45-0400 Body mass index (BMI) [Ratio] 36.1 kg/m2 DO Luis Oberer Work Phone: [facility] 01-24-2024 08:45-0400 Body temperature 98.1 [degF] DO Luis Oberer Work Phone: [facility] 01-24-2024 08:45-0400 Body weight 98.42 kg DO Luis Oberer Work Phone: [facility] 01-24-2024 08:45-0400 Diastolic blood pressure 74 mm[Hg] DO Luis Oberer Work Phone: [facility] 01-24-2024 08:45-0400 Heart rate 79 /min DO Luis Oberer Work Phone: [facility] 01-24-2024 08:45-0400 Respiratory rate 16 /min DO Luis Oberer Work Phone: [facility] 01-24-2024 08:45-0400 SaO2% (BldA) [Mass fraction] 96 % DO Luis Oberer Work Phone: [facility] 01-24-2024 08:45-0400 Systolic blood pressure 122 mm[Hg] DO Luis Oberer Work Phone: [facility] 07-22-2023 09:30-0500 Body height 143.51 cm Luis Oberer Other [facility] Other 07-22-2023 09:30-0500 Body mass index (BMI) [Ratio] 53.51 kg/m2 Luis Oberer Other [facility] Other 07-22-2023 09:30-0500 Body temperature 97.9 [degF] Luis Oberer Other [facility] Other 07-22-2023 09:30-0500 Body weight 110.22 kg Luis Oberer Other [facility] Other 07-22-2023 09:30-0500 Diastolic blood pressure 76 mm[Hg] Luis Oberer Other [facility] Other 07-22-2023 09:30-0500 Respiratory rate 16 /min Luis Oberer Other [facility] Other 07-22-2023 09:30-0500 SaO2% (BldA) [Mass fraction] 96 % Luis Oberer Other [facility] Other 07-22-2023 09:30-0500 Systolic blood pressure 117 mm[Hg] Luis Oberer Other [facility] Other 01-21-2023 08:15-0400 Body height 143.51 cm Luis Oberer Other [facility] Other 01-21-2023 08:15-0400 Body mass index (BMI) [Ratio] 52.99 kg/m2 Luis Oberer Other [facility] Other 01-21-2023 08:15-0400 Body temperature 97.4 [degF] Luis Oberer Other [facility] Other 01-21-2023 08:15-0400 Body weight 109.14 kg Luis Oberer Other [facility] Other 01-21-2023 08:15-0400 Diastolic blood pressure 68 mm[Hg] Luis Oberer Other [facility] Other 01-21-2023 08:15-0400 Respiratory rate 16 /min Luis Oberer Other [facility] Other 01-21-2023 08:15-0400 SaO2% (BldA) [Mass fraction] 95 % Luis Oberer Other [facility] Other 01-21-2023 08:15-0400 Systolic blood pressure 106 mm[Hg] Luis Oberer Other [facility] Other 01-25-2022 10:15-0400 Body height 143.51 cm Luis Oberer Other [facility] Other 01-25-2022 10:15-0400 Body mass index (BMI) [Ratio] 52.94 kg/m2 Luis Oberer Other [facility] Other 01-25-2022 10:15-0400 Body temperature 98.2 [degF] Luis Oberer Other [facility] Other 01-25-2022 10:15-0400 Body weight 109.05 kg Luis Oberer Other [facility] Other 01-25-2022 10:15-0400 Diastolic blood pressure 65 mm[Hg] Luis Oberer Other [facility] Other 01-25-2022 10:15-0400 Respiratory rate 16 /min Luis Oberer Other [facility] Other 01-25-2022 10:15-0400 SaO2% (BldA) [Mass fraction] 97 % Luis Oberer Other [facility] Other 01-25-2022 10:15-0400 Systolic blood pressure 122 mm[Hg] Luis Oberer Other [facility] Other 11-17-2021 11:00-0400 Body height 143.51 cm Luis Oberer Other [facility] Other 11-17-2021 11:00-0400 Body mass index (BMI) [Ratio] 53.51 kg/m2 Luis Oberer Other [facility] Other 11-17-2021 11:00-0400 Body temperature 97.9 [degF] Luis Oberer Other [facility] Other 11-17-2021 11:00-0400 Body weight 110.22 kg Luis Oberer Other [facility] Other 11-17-2021 11:00-0400 Diastolic blood pressure 74 mm[Hg] Luis Oberer Other [facility] Other 11-17-2021 11:00-0400 Respiratory rate 18 /min Luis Oberer Other [facility] Other 11-17-2021 11:00-0400 SaO2% (BldA) [Mass fraction] 97 % Luis Oberer Other [facility] Other 11-17-2021 11:00-0400 Systolic blood pressure 126 mm[Hg] Luis Oberer Other [facility] Other 10-26-2021 14:45-0400 Body height 143.51 cm Luis Oberer Other [facility] Other 10-26-2021 14:45-0400 Body mass index (BMI) [Ratio] 54.26 kg/m2 Luis Oberer Other [facility] Other 10-26-2021 14:45-0400 Body temperature 98.4 [degF] Luis Oberer Other [facility] Other 10-26-2021 14:45-0400 Body weight 111.77 kg Luis Oberer Other [facility] Other 10-26-2021 14:45-0400 Diastolic blood pressure 74 mm[Hg] Luis Oberer Other [facility] Other 10-26-2021 14:45-0400 Respiratory rate 16 /min Luis Oberer Other [facility] Other 10-26-2021 14:45-0400 SaO2% (BldA) [Mass fraction] 97 % Luis Oberer Other [facility] Other 10-26-2021 14:45-0400 Systolic blood pressure 127 mm[Hg] Luis Oberer Other [facility] Other 07-20-2021 10:00-0500 Body height 143.51 cm Luis Oberer Other [facility] Other 07-20-2021 10:00-0500 Body mass index (BMI) [Ratio] 52.85 kg/m2 Luis Oberer Other [facility] Other 07-20-2021 10:00-0500 Body temperature 97.8 [degF] Luis Oberer Other [facility] Other 07-20-2021 10:00-0500 Body weight 108.86 kg Luis Oberer Other [facility] Other 07-20-2021 10:00-0500 Diastolic blood pressure 84 mm[Hg] Luis Oberer Other [facility] Other 07-20-2021 10:00-0500 Respiratory rate 16 /min Luis Oberer Other [facility] Other 07-20-2021 10:00-0500 SaO2% (BldA) [Mass fraction] 94 % Luis Oberer Other [facility] Other 07-20-2021 10:00-0500 Systolic blood pressure 126 mm[Hg] Luis Oberer Other [facility] Other Encounters Encounter Date Encounter Type Care Provider Facility Start: 03-20-2024 End: 03-20-2024 Patient encounter procedure DO Luis Oberer Work Phone: [facility] Work Phone: Start: 03-20-2024 End: 03-20-2024 ambulatory DO Luis Oberer Work Phone: [facility] Work Phone: Start: 01-24-2024 End: 01-24-2024 ambulatory DO Luis Oberer Work Phone: [facility] Work Phone: Start: 01-24-2024 End: 01-24-2024 Encounter for general adult medical examination without abnormal findings DO Luis Oberer Work Phone: [facility] Start: 01-24-2024 End: 01-24-2024 Patient encounter procedure DO Luis Oberer Work Phone: [facility] [place] Work Phone: Start: 01-17-2024 End: 01-17-2024 Patient encounter procedure DO Luis Oberer Work Phone: [facility] [place] Work Phone: Start: 01-17-2024 End: 01-17-2024 ambulatory DO Luis Oberer Work Phone: [facility] Work Phone: Start: 12-18-2023 Non-patient / Non-visit DO Georges l Oberer Work Phone: [facility] [place] Work Phone: Start: 07-30-2023 End: 07-30-2023 Patient encounter procedure DO Luis Oberer Work Phone: [facility] [place] Work Phone: Start: 07-30-2023 End: 07-30-2023 ambulatory DO Luis Oberer Work Phone: [facility] Work Phone: Start: 07-22-2023 End: 07-22-2023 ambulatory Luis Oberer Other [facility] [employer] Other Start: 07-22-2023 Office outpatient vi sit 25 minutes Luis Oberer [facility] Start: 07-22-2023 End: 07-22-2023 Patient encounter procedure DO Luis Oberer Work Phone: [facility] [place] Work Phone: Start: 07-15-2023 End: 07-15-2023 Patient encounter procedure DO Luis Oberer Work Phone: [facility] [place] Work Phone: Start: 07-15-2023 End: 07-15-2023 ambulatory DO Luis Oberer Work Phone: [facility] Work Phone: Start: 03-25-2023 End: 03-25-2023 ambulatory Luis Oberer Other [facility] Other Start: 03-25-2023 Telephone encounter Luis Oberer [facility] Start: 02-28-2023 End: 02-28-2023 ambulatory Luis Oberer Other [facility] Other Start: 02-28-2023 Telephone encounter Luis Oberer [facility] Start: 01-21-2023 End: 01-21-2023 ambulatory Luis Oberer Other [facility] Other Start: 01-21-2023 Encounter for genera l adult medical examination without abnormal findings Luis Oberer [facility] Start: 01-21-2023 Patient encounter procedure Luis Oberer [facility] Start: 01-14-2023 End: 01-14-2023 ambulatory DO Luis Oberer Work Phone: [facility] Work Phone: Start: 01-14-2023 End: 01-14-2023 Patient encounter procedure DO Luis Oberer Work Phone: [facility] [place] Work Phone: Start: 11-06-2022 End: 11-06-2022 ambulatory Luis Oberer Other [facility] Other Start: 11-06-2022 Telephone encounter Luis Oberer [facility] Start: 07-25-2022 End: 07-25-2022 ambulatory DO Luis Oberer Work Phone: [facility] Work Phone: Start: 07-25-2022 End: 07-25-2022 Patient encounter procedure DO Luis Oberer Work Phone: [facility] [place] Work Phone: Start: 06-13-2022 End: 06-13-2022 ambulatory DO Luis Oberer Work Phone: [facility] Work Phone: Start: 06-13-2022 End: 06-13-2022 Patient encounter procedure DO Luis Oberer Work Phone: [facility] Start: 02-15-2022 End: 02-15-2022 ambulatory Luis Oberer Other [facility] Other Start: 02-15-2022 Telephone encounter Luis Oberer [facility] Start: 01-25-2022 End: 01-25-2022 ambulatory Luis Oberer Other [facility] Other Start: 01-25-2022 Office outpatient vi sit 25 minutes Luis Oberer [facility] Start: 11-17-2021 End: 11-17-2021 ambulatory Luis Oberer Other [facility] Other Start: 11-17-2021 Office outpatient vi sit 15 minutes Luis Oberer [facility] Start: 10-26-2021 End: 10-26-2021 ambulatory Luis Oberer Other [facility] Other Start: 10-26-2021 Office outpatient vi sit 15 minutes Luis Oberer [facility] Start: 10-19-2021 End: 10-19-2021 ambulatory Luis Oberer Other [facility] Other Start: 10-19-2021 Nursing evaluation o f patient and report Luis Oberer [facility] Start: 08-07-2021 End: 08-07-2021 ambulatory Luis Oberer Other [facility] Other Start: 08-07-2021 Follow-up encounter Luis Oberer [facility] Start: 07-20-2021 End: 07-20-2021 ambulatory Luis Oberer Other [facility] Other Start: 07-20-2021 Encounter for genera l adult medical examination without abnormal findings Luis Oberer [facility] Start: 07-20-2021 Patient encounter procedure Luis Oberer [facility] Procedures Date Procedure Procedure Detail Performing Clinician Start: 03-20-2024 Screening mammograph y of bilateral breasts DO Luis Oberer Work Phone: Start: 06-13-2022 Dual energy X-ray absorptiometry DO Luis Oberer Work Phone: Plan of Treatment Date Care Activity Detail Author Hepatic function panel [facility] Patient Education Asthma in adul ts Colon and rectal cancer screening [facility] Work Phone: [facility] Immunizations Immunization Date Immunization Notes Care Provider Fa cility 04-05-2023 RSV, preF3, adj, pf DO Luis Oberer Work Phone: [facility] 03-28-2023 Fluzone QIV High-Dos e 65YR+ DO Luis Oberer Work Phone: [facility] 03-26-2022 influenza, seasonal, injectable Luis Oberer Other [facility] 03-26-2022 Fluzone QIV High-Dos e 65YR+ DO Luis Oberer Work Phone: [facility] 10-31-2021 zoster vaccine recombinant DO Luis Oberer Work Phone: [facility] 07-21-2021 zoster vaccine recombinant DO Luis Oberer Work Phone: [facility] 07-21-2021 zoster vaccine, live Luis Ob erer Other [facility] 04-24-2021 COVID-19 Vaccine Pfi zer - Documentation Purposes Only Luis Oberer Other [facility] 04-10-2021 influenza, seasonal, injectable Luis Oberer Other [facility] [employer] Other 04-10-2021 influenza, injectabl e, quadrivalent, preservative free Luis Oberer Other [facility] 04-10-2021 Fluzone QIV High-Dos e 65YR+ DO Luis Oberer Work Phone: [facility] 04-10-2021 pneumococcal conjuga te vaccine, 13 valent Luis Oberer Other [facility] 04-10-2021 influenza, seasonal, injectable Luis Oberer Other [facility] 09-30-2020 COVID-19 Vaccine Pfi zer - Documentation Purposes Only Luis Oberer Other [facility] 09-09-2020 COVID-19 Vaccine Pfi zer - Documentation Purposes Only Luis Oberer Other [facility] 05-04-2020 pneumococcal polysaccharide vaccine, 23 valent DO Luis Oberer Work Phone: [facility] 03-10-2020 Fluzone QIV High-Dos e 65YR+ DO Luis Oberer Work Phone: [facility] 03-10-2020 influenza, seasonal, injectable Luis Oberer Other [facility] 04-24-2019 pneumococcal polysaccharide vaccine, 23 valent DO Luis Oberer Work Phone: [facility] 04-24-2019 Seasonal, quadrivale nt, recombinant, injectable influenza vaccine, preservative free DO Luis Oberer Work Phone: [facility] 04-06-2019 influenza, seasonal, injectable Luis Oberer Other [facility] 03-31-2018 influenza, seasonal, injectable Luis Oberer Other [facility] 06-11-2017 pneumococcal polysaccharide vaccine, 23 valent Luis Oberer Other [facility] 03-26-2017 influenza, seasonal, injectable Luis Oberer Other [facility] 03-26-2017 influenza, injectabl e, quadrivalent, preservative free DO Luis Oberer Work Phone: [facility] 04-18-2016 influenza, seasonal, injectable Luis Oberer Other [facility] 03-29-2015 influenza, seasonal, injectable DO Luis Oberer Work Phone: [facility] 03-08-2015 influenza, seasonal, injectable Luis Oberer Other [facility] 02-25-2015 zoster vaccine, live Luis Ob erer Other [facility] 12-17-2014 pneumococcal conjuga te vaccine, 13 valent Luis Oberer Other [facility] 04-07-2014 influenza, seasonal, injectable Luis Oberer Other [facility] 03-27-2013 influenza, seasonal, injectable Luis Oberer Other [facility] 03-27-2012 influenza, seasonal, injectable Luis Oberer Other [facility] 11-20-2011 tetanus toxoid, redu luz marina diphtheria toxoid, and acellular pertussis vaccine, adsorbed Luis Oberer Other [facility] 04-26-2011 influenza, seasonal, injectable Luis Oberer Other [facility] 07-20-2009 novel [id number], preservative-free, injectable DO Luis Oberer Work Phone: [facility] 04-26-2009 influenza, seasonal, injectable Luis Oberer Other [facility] 11-25-2007 influenza, seasonal, injectable Luis Oberer Other [facility] 04-29-2003 pneumococcal polysaccharide vaccine, 23 valent DO Luis Oberer Work Phone: [facility] Payers Date Payer Category Payer Medicare [id number] 2.1 [id number] 2023 Self-pay [id number] 2023 Unknown [id number] 2011 [facility] [id number] Unknown [id number] Unknown [id number] Unknown [id number] [id number] Unknown [id number] [id number] Social History Date Type Detail Facility Unknown if ever smoked [facility] Other Sex Assigned At Sex Assigned At Bir th [facility] Other Start: 10-02-2017 End: 07-22-2023 Tobacco smoking status NHIS Never smoked tobacco (finding) [facility] Start: 1955 Sex Assigned At Female [facility] Clinical Notes 07-20-2021 to 07-22-2023 Note Date [...] and sooner as needed or pending above [facility] Other 11-09-2023 History general Narrative - Reported* [...] passed bile duct stone ERCP w/spinchterectomy 11/2006 [facility] Other 07-17-2023 Evaluation note* Encounter Date Diagnosis [...] Please send today's labs to Dr. Mckeon. [facility] Other 08-11-2022 Evaluation note* Encounter Date Diagnosis Assessment Notes Treatment Notes Treatment Clinical Notes Feb, Encounter for screening for osteoporosis (ICD-10 - Z13.820) Feb, Adjustment disorder with mixed anxiety and depressed mood (ICD-10 - F43.23) [facility] Other 07-21-2022 Evaluation note* Encounter Date Diagnosis [...] or pending above, Atorvastatin material was published [facility] Other 05-13-2022 Evaluation note* Encounter Date Diagnosis [...] for future MRIs or CTs if needed. [facility] Other 04-21-2022 Evaluation note* Encounter Date Diagnosis [...] will be given something IV at the [facility] on cataract they. She, as above, got [...] Oct, Other Buspirone mater ial was published [facility] Other 04-14-2022 Evaluation note* Encounter Date Diagnosis Assessment Notes Treatment Notes Treatment Clinical Notes Oct, Colon cancer screening (ICD-10 - Z12.11) [facility] Other 01-31-2022 Evaluation note* Encounter Date Diagnosis Assessment Notes Treatment Notes Treatment Clinical Notes Jul, Cystitis without hematuria (ICD-10 - N30.90) [facility] Other 01-13-2022 Evaluation note* Encounter Date Diagnosis [...] not think she has a power of workers compensation attorney. She states that she is going [...] and sooner as needed or pending above. [facility] Other Evaluation noteNo assessment information available [facility] Work Phone: Evaluation noteNo [facility] Other Evaluation note* Diagnosis Onset Date Resolution Status Adjustment disorder with mix ed anxiety and depressed mood acute Asthma acute Generalized OA acute Impaired glucose tolerance a cute Mixed hyperlipidemia acute Osteoporosis acute Panic disorder acute Seasonal allergies acute Colon cancer screening nonea ctive Wellness examination noneact janee Breast cancer screening none active [facility] Work Phone: [facility] general Narrative - Reported* Type Description Date Medical History Asthma-started age 7 Medical History Allergic rhinitis Medical History PMS-Depressive symtoms/mixed moo d disorder Medical History Hypercholesterolemia (2002)-Mixe d hyperlipidemia Medical History OVER THE RO[employer]IVER [place] Medical History Osteoporosis-Dexascan 05/16 Medical History OA [...] passed bile duct stone ERCP w/spinchterectomy 11/2006 [facility] [employer] Other Summary Purpose Family History No Family [...] 0) Referral Organization [facility] [facility] Referring Provider First Name Luis Referring Provider Last Name Oberer Referring Provider Specialty Family Prac lindsey Referred Organization [facility] Referred Address [address] [place] [address] [place],[address] Referred Provider Specialty Neurology Referral Priority Routine [...] section and content) DATE CREATED AUTHOR 12/31/2020 [place] [facility] DATE CREATED AUTHOR AUTHOR'S ORGANIZ ATION 03/27/2024 [facility] REASON FOR VISIT (unrecogniz ed section and content) 6 month Follow up, Mood- goo d TS, advance plan, asthma- no issues, under control TS, albuterol, pharmacy- [facility] TS, Medicare Well Exam #1, KLO Medicare [...] FAXED6 month Follow up, pharmacy: [facility] lfr, refills: Ventolin HFA. lfr, ADV [...] F/U/LABS, NEXT OV AWV AFTER 01.22.24, Pharmacy: [facility] [place]. lfr, Refills: No. lfr, [...] BE BASED ON THE PRIMARY CLINICAL RECORDS. [employer] [facility]. provides no warranty or guarantee of the accuracy or completeness of information in this document.
== END 2024-07-27 11:49 | disposition home or self-care (01) ==
LOC: EC 11:48
PROVIDERS: Family Provider Family Medicine; PCP Family Medicine; Visit Provider Orthopaedic Surgery
DX: M25.511 Pain in right shoulder (principal); S42.214D Unspecified nondisplaced fracture of surgical neck of right humerus, subsequent encounter for fracture with routine healing; S22.41XA Multiple fractures of ribs, right side, initial encounter for closed fracture
CPT/HCPCS: 73030

== ENCOUNTER 2024-08-24 11:26 | Outpatient (OUT) | payer MEDICARE, BC, SELFPAY ==
--- NOTE | 2024-08-24 | XR_ITS ---
The [address] [address] Patient Name: PEPITO ESTRELLA MRN: [id number] date: 1955 Sex: F Assigned Patient Location: Current Patient Location: Accession/Order Number: [id number] Exam Date: 08/24/2024 12:40 Report Date: 08/24/2024 15:44 At the request of: ZAHRA GUTIERREZ Procedure: XR shoulder RT min 2V HISTORY: Right shoulder pain. Follow-up fracture of the proximal right humerus. XR shoulder RT min 2V: 08/24/2024 12:40 PM EST COMPARISON: Radiographs right shoulder 07/11/2024 and 07/27/2024. FINDINGS: There are moderate degenerative changes again seen of the acromioclavicular joint. There is a similar appearance of the alignment of a comminuted fracture of the proximal humerus involving the surgical neck of the humerus and greater tuberosity. There has been interval increase of adjacent callus formation and osseous fusion across portions of the fracture. No fracture or dislocation is seen. XR/XR shoulder RT min 2V IMPRESSION: There is evidence of progressive, but incomplete interval healing of a comminuted fracture of the proximal humerus since the prior study of 07/27/2024 as described above. Electronically authenticated by: TIN SINGER Date: 08/24/2024 15:44
--- OUTSIDE RECORDS SUMMARY | 2024-08-24 11:48 | XMS_ITS | CCD ---
Author Organization [facility] [place] [facility] Care Team Providers Care Snowboard Instructor Name Role Phone Oberer, Luis Unavailable Oberer, DO Luis Primary Care Provider Oberer, DO Luis Attending Provider Oberer, DO Luis Primary Care Provider Oberer, DO Luis Attending Provider Oberer, DO Luis Primary Care Provider [phone] Oberer, DO Luis Attending Provider Bedocs, DO Matt Sears Attending Provider Oberer, DO Luis Primary Care Provider Oberer, DO Luis Attending Provider Oberer, DO Luis Referring Provider [phone] Self, Referral Attending Provider Unavailable Oberer DO, Luis Primary Care Provider Oberer DO, Luis Attending Provider Oberer, Luis Admitting Unavailable Oberer, Luis Attending Unavailable Oberer, Luis Primary Care Unavailable Self, Referral Admitting Unavailable Self, Referral Attending Unavailable Oberer, Luis Referring Unavailable Oberer, Luis Primary Care Unavailable Oberer, Luis Admitting Unavailable Oberer, Luis Attending Unavailable Oberer, Luis Primary Care Unavailable Oberer, Luis Admitting Unavailable Oberer, Luis Attending Unavailable Oberer, Luis Primary Care Unavailable Allergies Allergy Classification Reported Allergen(s) Allergy Type Date of Onset Reaction(s) Facility (13 sources) Alendronate Drug Allergy GI upset [employer] Other (18 sources) fluticasone Drug Allergy 01-15-202 4 sore throat, dyspnea, sore throat [facility] (12 sources) fluticasone / salmeterol Drug Allergy dyspnea [facility] [employer] Other (8 sources) Penicillin V Drug Allergy shortness of breath [facility] [employer] Other (13 sources) salmon calcitonin Drug Allergy Nasal Bleeding [facility] [employer] Other (1 source) fluticasone / salmeterol Drug Allergy dyspnea [facility] [employer] Other (11 sources) Aspirin; Translations: [aspirin] Drug Allergy 8 Difficulty Breathing [facility] (11 sources) Naproxen; Translations: [naproxen] Drug Allergy 8 Difficulty Breathing [facility] (11 sources) Penicillins; Translations: [Penicillins] Allergy to substance 8 Difficulty Breathing, Difficulty Breathing, shortness of breath [facility] (5 sources) Penicillin Drug Allergy shortness of breath [facility] [employer] Other (6 sources) Alendronate; Translations: [alendronate sodium] Drug Allergy 4 GI upset [facility] (6 sources) salmeterol; Translations: [salmeterol] Drug Allergy 4 dyspnea [facility] (6 sources) calcitonin; Translations: [calcitonin] Allergy to substance 4 Nasal Bleeding [facility] (1 source) fluticasone Drug Allergy 5 [facility] Repository Medications Current Medications Medication Drug Class(es) Dates Sig (Normalized) Sig (Original) [id number] 200 actuat albuterol 0.09 mg/actuat metered dose inhaler (20 sources) beta2-Adrenergic Agonist Start: 08-17-2024 Albuterol Sulfate (Ventolin Hfa) 90 mcg/actuation HFA aerosol inhaler Active 2 INH INHALATION Daily August 17, 2024 4:16pm USE 2 INHALATIONS BY MOUTH TWICE DAILY Start: 03-06-2024 End: 08-17-2024 Albuterol Sulfate (Ventolin Hfa) 90 mcg/actuation HFA aerosol inhaler Discontinued 0 .ROUTE .COMPLEX March 06, 2024 10:45am August 17, 2024 4:17pm USE 2 INHALATIONS BY MOUTH TWICE DAILY Start: 03-06-2024 Albuterol Sulf ate (Ventolin Hfa) 90 mcg/actuation HFA aerosol inhaler Active 0 .ROUTE .COMPLEX March 06, 2024 11:45am USE 2 INHALATIONS BY MOUTH TWICE DAILY Start: 02-17-2024 End: 03-06-2024 take 1 puff(s) by inhalation twice daily Albuterol Sulfate Discontinued 2 PUFF INHALATION Twice daily 6.7 February 17, 2024 3:11pm March 06, 2024 11:45am Start: 01-24-2024 take 3 mL by inhalat ion four times daily Albuterol Sulfate 2.5 mg /3 mL (0.083 %) solution for nebulization Active 2.5 MG INHALATION Four times daily January 23, 2024 11:00pm [employer] Inhalation 4 times a day; Note: Source Status: Taking; Provider: James Smith ( ) Start: 10-02-2017 End: 02-17-2024 take 1 puff(s) by inhalation twice daily Albuterol Sulfate 90 mcg/actuation Hfa Aerosol Inhaler Discontinued 1 PUFF INHALATION Twice daily October 01, 2017 11:00pm February 17, 2024 2:14pm Ventolin HFA 108 (90 Base) MCG/ACT USE 2 INHALATIONS BY MOUTH DAILY AND EVERY 4 HOURS NEEDED FOR ASTHMA QUALITY PROCESS ENGINEER RECOMMENDS NOT EXCEEDING 12 INH/DAY for 90 [...] (20 sources) HMG-CoA Reductase Inhibitor Start: 11-15-2023 End: 04-23-2024 take 1 tablet by mouth once daily at bedtime Atorvastatin 20 mg tablet Active 20 MG PO Daily at bedtime 90 April 23, 2024 1:42pm Start: 11-14-2023 End: 11-15-2023 take 2 tablets by mouth once daily at bedtime Atorvastatin (Lipitor) 10 mg tablet Discontinued 20 MG PO Daily at bedtime 180 November 14, 2023 3:27pm November 15, 2023 9:52am Start: 10-02-2017 End: 11-14-2023 take 1 tablet by mouth once daily Atorvastatin (Lipitor) 10 mg Tablet Discontinued 10 MG PO Daily October 01, 2017 11:00pm November 14, 2023 3:26pm take 1 tablet by caitlin th at bedtime Atorvastatin Calcium 20 MG TAKE 1 TABLET BY MOUTH AT BEDTIME for 90 Active 24 hr buPROPion hydrochloride 300 mg extended release oral tablet (8 sources) Aminoketone Start: 06-11-2017 take 1 tablet by mouth every twenty-four hours Wellbutrin XL 300 MG 1 tablet in the morning Orally Once a day for 90 days Jun, Active Calcium (13 sources) Phosphate Binder, Calcium Calcium + D Orally Daily Active ciclopirox 7.7 mg/ml topical cream (3 sources) Start: 01-25-2022 Loprox 0.77 % Apply to right elbow rash Externally Twice a day for 30 days PRN Jan, Active fluticasone propionate 0.05 mg/actuat metered dose nasal spray (20 sources) Corticosteroid Start: 10-02-2017 Fluticasone Propionate (Flonase Allergy Relief) 50 mcg/actuation [place],Suspension Active 1 SPRAY INTRANASAL Daily October 01, 2017 11:00pm take 2 spray(s) nasal route once daily Flonase 50 MCG/ACT 2 spray in each nostril Nasally Once a day for 90 days Active take 2 spray(s) nasal route once daily Flonase 50 MCG/ACT 2 spray in each nostril Nasally Once a day for 90 days Active L.Rhamnosus-B.Animalis ([employer]) 3 billion cell capsule (4 sources) Start: 01-24-2024 L.Rhamnosus-B. Animalis ([employer]) 3 billion cell capsule Active CAP PO January 23, 2024 11:00pm Start: 01-24-2024 L.Rhamnosus-B. Animalis ([employer]) 3 billion cell capsule Active CAP PO January 24, 2024 12:00am montelukast 10 mg oral tablet (20 sources) Leukotriene Receptor Antagonist Start: 08-17-2024 take 1 tablet by mouth once daily in the evening Montelukast 10 mg tablet Active 10 MG PO Every evening August 17, 2024 4:17pm TAKE 1 TABLET BY MOUTH EVERY EVENING Start: 05-07-2024 End: 08-17-2024 take 1 tablet by mouth once daily in the evening Montelukast 10 mg tablet Discontinued 0 .ROUTE .COMPLEX May 07, 2024 7:19am August 17, 2024 4:18pm TAKE 1 TABLET BY MOUTH EVERY EVENING Start: 10-02-2017 End: 05-07-2024 take 1 tablet by mouth once daily in the evening Montelukast (Singulair) 10 mg tablet Discontinued 10 MG PO Every evening December 18, 2023 1:31pm May 07, 2024 7:19am nitrofurantoin, macrocrystals 25 mg / nitrofurantoin, monohydrate 75 mg oral capsule (3 sources) Nitrofuran Antibacterial Start: 07-20-2021 take 1 capsule by mouth every twelve hours Macrobid 100 MG 1 capsule with food Orally every 12 hrs for 10 days Jul, Active [employer] (13 sources) [employer] Orally Active risedronate sodium 150 mg oral tablet (20 sources) Start: 08-17-2024 take 1 tablet by mouth every month Risedronate 150 mg tablet Active 150 MG PO every month August 17, 2024 4:15pm TAKE 1 TABLET BY MOUTH MONTHLY ADMINISTER AT LEAST 1/2 HOUR BEFORE THE FIRST FOOD OR DRINK OF THE DAY OTHER THAN WATER Start: 04-16-2024 End: 08-17-2024 take 1 tablet by mouth every month Risedronate 150 mg tablet Discontinued 0 .ROUTE .COMPLEX 3 April 16, 2024 3:36pm August 17, 2024 4:16pm TAKE 1 TABLET BY MOUTH MONTHLY ADMINISTER AT LEAST 1/2 HOUR BEFORE THE FIRST FOOD OR DRINK OF THE DAY OTHER THAN WATER Start: 01-24-2024 End: 04-16-2024 take 1 tablet by mouth every month Risedronate 150 mg tablet Discontinued 150 MG PO every month February 17, 2024 2:13pm April 16, 2024 3:36pm administer at least 30 minutes before the first food or drink of the day other than water. take 1 tablet by caitlin th every month Risedronate Sodium 150 MG TAKE 1 TABLET BY MOUTH MONTHLY for 90 Active sertraline 100 mg oral tablet (20 sources) Serotonin Reuptake Inhibitor Start: 01-24-2024 take 2 tablets by mouth once daily Sertraline (Zoloft) 100 mg tablet Active 200 MG PO Daily January 24, 2024 7:35am Start: 10-02-2017 End: 01-24-2024 take 1 tablet by mouth once daily Sertraline (Zoloft) 100 mg Tablet Discontinued 100 MG PO Daily October 01, 2017 11:00pm January 24, 2024 7:37am take 2 tablets by mo [facility] once daily Sertraline HCl 100 MG TAKE 2 TABLETS BY MOUTH ONCE DAILY for 90 Active spironolactone 100 mg oral tablet (8 sources) Aldosterone Antagonist Start: 01-22-2024 take 1 tablet by mouth once daily Spironolactone 100 mg tablet Active 100 MG PO Daily January 21, 2024 11:00pm [employer] tablet Orally Once a day; Note: Source Status: Taking; Provider: Per Dr. Mckeon take 1 tablet by caitlin every twenty-four hours Spironolactone 100 MG 1 [...] / HYDROcodone bitartrate 5 mg oral tablet (10 sources) Opioid Agonist Start: 10-02-2017 End: 01-24-2024 take 1 tablet by mouth every six hours as needed for pain Hydrocodone-Acetami nophen ([place]) 5-325 mg tablet Discontinued 1 TAB PO Q6H as needed for pain October 02, 2017 January 24, 2024 7:35am Albuterol Sulfate 90 mcg/actuation HFA aerosol inhaler (2 sources) Start: 02-17-2024 End: 03-06-2024 take 1 puff(s) by inhalation twice daily Albuterol Sulfate 90 mcg/actuation HFA aerosol inhaler Discontinued 2 PUFF INHALATION Twice daily 6.7 February 17, 2024 2:11pm March 06, 2024 10:45am busPIRone hydrochloride 10 mg oral tablet (20 sources) Start: 01-22-2024 End: 05-22-2024 take 2 tablets by mouth twice daily Buspirone 10 mg tablet Discontinued 20 MG PO Twice daily 360 90 January 27, 2024 10:21am May 22, 2024 9:37am [employer] tablets Orally Twice a day; Note: Source Status: Start; Refills: 1; Qty: 360 Tablet; Provider: James Nagel Start: 01-22-2024 End: 01-27-2024 take 2 tablets by mouth twice daily Buspirone Active 20 MG PO Twice daily 360 90 January 27, 2024 11:21am [employer] tablets Orally Twice a day; Note: Source Status: Start; Refills: 1; Qty: 360 Tablet; Provider: James Nagel Start: 07-22-2023 take 2 tablets by mo uth every twelve hours busPIRone HCl 10 MG 2 tablets Orally Twice a day for 90 days Jul, Active Start: 01-25-2022 take 1 tablet by caitlin th every twelve hours busPIRone HCl 15 MG 1 tablet Orally Twice a day for 90 days Jan, Active Start: 11-17-2021 take 1 tablet by caitlin th every twelve hours busPIRone HCl 10 MG 1 tablet Orally Twice a day for 30 days November, Active Start: 10-26-2021 take 1 tablet by caitlin th every twelve hours busPIRone HCl 5 MG 1 tablet Orally Twice a day for 30 days Oct, Active Problems Active Problems Problem Classification Problem Date Documented Da te Episodic/Chronic Adjustment disorders (20 sources) Adjustment disorder with mixed emotional features; Translations: [Adjustment disorder with mixed anxiety and depressed mood] Onset: 07-20-2021 Resolved: 02-15-2022 Chronic Allergic reactions (20 sources) Allergy to penicillin; Translations: [Allergy status to penicillin] Onset: 07-20-2021 Resolved: 07-20-2021 Episodic Anxiety disorders (20 sources) Panic disorder; Translations: [Panic disorder [episodic paroxysmal anxiety]] Onset: 10-26-2021 Resolved: 01-25-2022 Chronic Asthma (20 sources) Asthma; Translations: [Unspecified asthma, uncomplicated] Onset: 07-20-2021 Resolved: 01-25-2022 Chronic Comment on above: Asthma-started age 7 Disorders of lipid metabolism (20 sources) Mixed hyperlipidemia; Translations: [Mixed hyperlipidemia] Onset: 07-20-2021 Resolved: 01-25-2022 Chronic Comment on above: 2002 Essential hypertension (1 source) Essential (primary) hypertension; Translations: [Essential (primary) hypertension] Onset: 08-17-2024 Chronic Fracture of lower limb (20 sources) Metatarsal bone fracture; Translations: [Displaced fracture of fifth metatarsal bone, unspecified foot, initial encounter for closed fracture] 10-02-2017 Episodic Fracture of upper limb (1 source) Unspecified fracture of shaft of humerus, right arm, initial encounter for closed fracture; Translations: [Closed fracture of unspecified part of humerus] 08-21-2024 Episodic Menopausal disorders (18 sources) Menopausal and female climacteric states; Translations: [Menopausal state] 01-08-2024 Chronic Osteoarthritis (20 sources) Degenerative joint disease involving multiple joints; Translations: [Polyosteoarthritis , unspecified] Onset: 07-20-2021 Resolved: 01-25-2022 Chronic Osteoporosis (20 sources) Osteoporosis; Translations: [Age-related osteoporosis without current pathological fracture] Onset: 07-20-2021 Resolved: 01-25-2022 Chronic Comment on above: DEXA 05/2009 Other aftercare (18 sources) Long-term current use of drug therapy; Translations: [Other band tacker (current) drug therapy] 01-08-2024 Episodic Other aftercare (6 sources) Other band tacker (current) drug therapy; Translations: [Long-term (current) use of other medications] Onset: 07-20-2021 Resolved: 01-25-2022 Episodic Other connective tissue disease (13 sources) Weakness of face muscles; Translations: [Facial weakness] Episodic Other lower respiratory disease (1 source) Pleurodynia; Translations: [Chest pain, unspecified] 08-21-2024 Episodic Other nutritional; endocrine; and metabolic disorders [...] mass index (BMI) 50.0-59.9, adult Chronic Other upper respiratory disease (18 sources) Seasonal allergy; Translations: [Other seasonal allergic rhinitis] 01-08-2024 Chronic Other upper respiratory disease (18 sources) Allergic rhinitis; Translations: [Allergic rhinitis, unspecified] 01-08-2024 Chronic Other upper respiratory disease (4 sources) Allergic rhinitis, unspecified; Translations: [Allergic rhinitis, cause unspecified] Onset: 07-20-2021 Resolved: 01-25-2022 Chronic Other upper respiratory disease (3 sources) Other seasonal allergic rhinitis; Translations: [Allergic rhinitis, cause unspecified] Chronic Residual codes; unclassified (18 sources) FH: Alzheimer's disease; Translations: [Family history of epilepsy and other diseases of the nervous system] 01-08-2024 Episodic Residual codes; unclassified (1 source) Family history of epilepsy and other diseases of the nervous system Episodic Past or Other Problems Problem Classification Problem Date Documented Da te Episodic/Chronic Administrative/social admission (1 source) Other specified counseling Onset: 01-25-2022 Resolved: 01-25-2022 Episodic Diabetes mellitus without complication (20 sources) Impaired glucose tolerance; Translations: [Impaired glucose tolerance (oral)] Onset: 07-20-2021 Resolved: 01-25-2022 Episodic Comment on above: 2009 Genitourinary symptoms and ill-defined conditions (2 sources) Dysuria Onset: 07-20-2021 Resolved: 07-20-2021 Episodic Mycoses (1 source) Tinea corporis Onset: 01-25-2022 Resolved: 01-25-2022 Episodic Other connective tissue disease (3 sources) Facial weakness Onset: 07-20-2021 Resolved: 01-25-2022 Episodic Other screening for suspected conditions (not mental disorders or infectious disease) (10 sources) Encounter for screening for malignant neoplasm of colon; Translations: [Encounter for screening for osteoporosis] Onset: 10-19-2021 Resolved: 02-15-2022 Episodic Other skin disorders (1 source) Other seborrheic keratosis Onset: 01-25-2022 Resolved: 01-25-2022 Episodic Unclassified (1 source) Vaccine counseling Z71.85 Urinary tract infections (3 sources) Cystitis, unspecified without hematuria Onset: 07-20-2021 Resolved: 08-07-2021 Episodic Results Test Name Value Interpretation Reference Range Facility X-ray reportOrdered By: Kendrick Easton on 08-21-2024 Study report [facility] [place] [address] [place] [address] XRay Report Signed Patient: Paula Bone V MR#: [id number] : 1955 Acct:[id number] Age/Sex: 69 / F ADM Date: 5 Loc: XDS Room: [facility] Attending Dr: Luis Ramirez DO Copies to: Luis Ramirez DO~ Ordering Provider: Luis Ramirez DO Date of Service: 08/21/24 XR/XR ribs RT min 3V w CXR1V*: RT. RIB PAIN Right Rib series with Single View Chest HISTORY: Right lower rib pain. COMPARISON: None MEDIASTINUM: Cardiac, mediastinal hilar silhouettes are within normal limits. LUNGS AND PLEURA: No acute lung process, pleural effusion or pneumothorax identified. ACUTE FINDINGS: No displaced rib fracture identified. DEGENERATIVE CHANGE: Old right proximal humerus fracture. Thoracic spondylosis. SOFT TISSUE: Unremarkable POSTOP CHANGES: Right upper quadrant surgical clips XR/XR ribs RT min 3V w CXR1V* IMPRESSION: No displaced rib fracture. No acute chest findings. Impression dictated by: Long Easton M.D.08/21/2024 3:59 PM Dictation Location: [id number]-23 Transcribed By: DALILA 08/21/24 1559 Dictated By: Long Easton DO 08/21/24 1558 Signed By: 08/21/24 1559 [facility] XR ribs RT min 3V w CXR1V*on 08-21-2024 XR ribs RT min 3V w CXR1V* [facility] [place] [address] [place] [address] XRay Report Signed Patient: Paula Bone V MR#: [id number] : 1955 Acct:[id number] Age/Sex: 69 / F ADM Date: 08/21/24 Loc: [facility] Room: [facility] Attending Dr: Luis Ramirez DO Copies to: Luis Ramirez DO Ordering Provider: Luis Ramirez DO Date of Service: 08/21/24 XR/XR ribs RT min 3V w CXR1V*: RT. RIB PAIN Right Rib series with Single View Chest HISTORY: Right lower rib pain. COMPARISON: None MEDIASTINUM: Cardiac, mediastinal hilar silhouettes are within normal limits. LUNGS AND PLEURA: No acute lung process, pleural effusion or pneumothorax identified. ACUTE FINDINGS: No displaced rib fracture identified. DEGENERATIVE CHANGE: Old right proximal humerus fracture. Thoracic spondylosis. SOFT TISSUE: Unremarkable POSTOP CHANGES: Right upper quadrant surgical clips XR/XR ribs RT min 3V w CXR1V* IMPRESSION: No displaced rib fracture. No acute chest findings. Impression dictated by: Long Easton M.D.08/21/2024 3:59 PM Dictation Location: [id number]-23 Transcribed By: [facility] 08/21/24 1559 Dictated By: Long Easton DO 08/21/24 1558 Signed By: 02/14/25 1559 Normal [facility] A1C with Estimated Average Melissa glez 08-17-2024 Glucose [Mass/Vol] 108 mg/dL Normal [facility] Comment on above: Result Comment: PERF ORMED BY: [place] [address] PATHOLOGIST SERVICE AGENT SANDRA COBURN M.D. Performed By: #### A 1C WTH eA, HEPATIC, CBC, BMP, LIPID #### [address] HbA1c (Bld) [Mass fraction] 5.4 % Normal 4.3-5.6 [facility] Comment on above: Result Comment: Incr eased risk for diabetes: 5.7 - 6.4 diabetes: >6.4 glycemic control for adults with diabetes: <7.0 Performed By: #### A 1C WTH eA, HEPATIC, CBC, BMP, LIPID #### [address] Alanine aminotransferase [En zymatic activity/volume] in Serum or PlasmaOrdered By: Luis Ramirez on 08-17-2024 ALT [Catalytic activity/Vol] Alanine aminotransferase [Enzymatic activity/volume] in Serum or Plasma 752 [facility] Albumin [Mass/volume] in Ser um or Plasma by Bromocresol green (BCG) dye binding methoOrdered By: Luis Ramirez on 08-17-2024 Albumin BCG dye [Mass/Vol] Albumin [Mass/volume] in Serum or Plasma by Bromocresol green (BCG) dye binding metho 3.5-5.7 [facility] Alkaline phosphatase [Enzyma tic activity/volume] in Serum or PlasmaOrdered By: Luis Ramirez on 08-17-2024 ALP [Catalytic activity/Vol] Alkaline phosphatase [Enzymatic activity/volume] in Serum or Plasma 34-104 [facility] Aspartate aminotransferase [ Enzymatic activity/volume] in Serum or PlasmaOrdered By: Luis Ramirez on 08-17-2024 AST [Catalytic activity/Vol] Aspartate aminotransferase [Enzymatic activity/volume] in Serum or Plasma 13-39 [facility] Basic Metabolic Panelon 08-08 Anion gap [Moles/Vol] 12.3 mmol/L Normal 6.0-15.0 [facility] Comment on above: Performed By: #### A 1C WTH eA, HEPATIC, CBC, BMP, LIPID #### [facility] [address] Calcium [Mass/Vol] 10.0 mg/dL Normal 8.6-10.3 [facility] Comment on above: Performed By: #### A 1C WTH eA, HEPATIC, CBC, BMP, LIPID #### [facility] [address] Chloride [Moles/Vol] 103 mmol/L Normal 98-107 [facility] Comment on above: Performed By: #### A 1C WTH eA, HEPATIC, CBC, BMP, LIPID #### [address] CO2 [Moles/Vol] 25.6 mmol/L Normal 21.0-31.0 [facility] Comment on above: Performed By: #### A 1C WTH eA, HEPATIC, CBC, BMP, LIPID #### [facility] [address] Creatinine [Mass/Vol] 0.80 mg/dL Normal 0.60-1.20 [facility] Comment on above: Performed By: #### A 1C WTH eA, HEPATIC, CBC, BMP, LIPID #### [facility] [address] [place] [address] [place] GFR/1.73 sq M.predicted MDRD (S/P/Bld) [Vol rate/Area] mL/min/{1.73_m2} Normal [facility] Comment on above: Performed By: #### A 1C WTH eA, HEPATIC, CBC, BMP, LIPID #### [facility] [address] [place] [address] [place] Glucose [Mass/Vol] 103 mg/dL High 70-100 [facility] Comment on above: Result Comment: [facility] Glucose Reference Range is dependent on time and content of last meal. Glucose of more than 200 mg/dL in a nonstressed, ambulatory subject supports the diagnosis of Diabetes Mellitus. ADA recommended reference range Performed By: #### A 1C WTH eA, HEPATIC, CBC, BMP, LIPID #### [facility] [address] Potassium [Moles/Vol] 4.9 mmol/L Normal 3.5-5.1 [facility] Comment on above: Performed By: #### A 1C WTH eA, HEPATIC, CBC, BMP, LIPID #### [facility] [address] Sodium [Moles/Vol] 136 mmol/L Normal 136-145 [facility] Comment on above: Performed By: #### A 1C WTH eA, HEPATIC, CBC, BMP, LIPID #### [facility] [address] Urea nitrogen [Mass/Vol] 18 mg/dL Normal 7-25 [facility] Comment on above: Performed By: #### A 1C WTH eA, HEPATIC, CBC, BMP, LIPID #### [facility] [address] Basophils Auto (Bld) [#/Vol] Ordered By: Luis Ramirez on 08-17-2024 Basophils (Bld) [#/Vol] Automated basoph il count 0.0-0.2 [facility] Basophils/100 WBC Auto (Bld) Ordered By: Luis Ramirez on 08-17-2024 Basophils/100 WBC (Bld) Automated basophil % . [facility] Bilirubin.direct [Mass/volum e] in Serum or PlasmaOrdered By: Luis Ramirez on 08-17-2024 Bilirubin.direct [Mass/Vol] Bilirubin.direct [Mass/volume] in Serum or Plasma High 0.03-0.18 [facility] Bilirubin.total [Mass/volume ] in Serum or PlasmaOrdered By: Luis Ramirez on 08-17-2024 Bilirubin [Mass/Vol] Bilirubin.total [Mass/volume] in Serum or Plasma High 0.3-1.0 [facility] Blood estimated average gluc ose determination by estimation from glycated hemoglobinOrdered By: Luis Ramirez on 08-17-2024 Average glucose Estimated from glycated hemoglobin (Bld) [Mass/Vol] Glucose mean value [Mass/volume] in Blood Estimated from glycated hemoglobin [facility] Calcium [Mass/volume] in Ser um or PlasmaOrdered By: Luis Ramirez on 08-17-2024 Calcium [Mass/Vol] Calcium [Mass/volume ] in Serum or Plasma 8.6-10.3 [facility] Carbon dioxide, total [Moles /volume] in Serum or PlasmaOrdered By: Luis Ramirez on 08-17-2024 CO2 [Moles/Vol] Carbon dioxide, tota l [Moles/volume] in Serum or Plasma 21.0-31.0 [facility] Chloride [Moles/volume] in S daina or PlasmaOrdered By: Luis Ramirez on 08-17-2024 Chloride [Moles/Vol] Chloride [Moles/volume] in Serum or Plasma 98-107 [facility] Cholesterol [Mass/volume] in Serum or PlasmaOrdered By: Luis Ramirez on 08-17-2024 Cholesterol [Mass/Vol] Cholesterol [Mass/volume] in Serum or Plasma Low 140-200 [facility] Comment on above: Chol less than 200 m g/dl low riskChol 201-239 mg/dl borderline riskChol 240 mg/dl and greater high risk Cholesterol in HDL [Mass/vol ume] in Serum or PlasmaOrdered By: Luis Ramirez on 08-17-2024 Cholesterol in HDL [Mass/Vol] Serum or plasma high density lipoprotein (HDL) cholesterol measurement 23-92 [facility] Comment on above: HDL CHOL ATP-III CLA SSIFICATION Cardiovascular RiskHDL > or equal to 60 mg/dL LOWHDL < 40 mg/dL HIGH Cholesterol in LDL Calc [Mas s/Vol]Ordered By: Luis Ramirez on 08-17-2024 Cholesterol in LDL [Mass/Vol] Cholesterol in LDL [Mass/volume] in Serum or Plasma by calculation 0-100 [facility] Comment on above: LDL ATP III CLASSIFI CATIONLDL less than 100 mg/dL OptimalLDL 100-129 mg/dL Near or above optimalLDL 130-159 mg/dL Borderline highLDL 160-189 mg/dL HighLDL greater than 189 mg/dL Very high Cholesterol in VLDL Calc [Ma ss/Vol]Ordered By: Luis Ramirez on 08-17-2024 Cholesterol in VLDL [Mass/Vol] Cholesterol in VLDL [Mass/volume] in Serum or Plasma by calculation [facility] Complete Blood Count Auto Di ffon 08-17-2024 Basophils (Bld) [#/Vol] 0.0 10*3/uL Normal 0.0-0.2 [facility] Comment on above: Result Comment: PERF ORMED BY: [place] [address] PATHOLOGIST SERVICE AGENT SANDRA COBURN M.D. Performed By: #### A 1C WTH eA, HEPATIC, CBC, BMP, LIPID #### [address] Basophils/100 WBC (Bld) 0.3 % Normal . T bett[facility] Comment on above: Performed By: #### A 1C WTH eA, HEPATIC, CBC, BMP, LIPID #### [address] Eosinophils (Bld) [#/Vol] 0.1 10*3/uL Normal 0.0-0.45 [facility] Comment on above: Performed By: #### A 1C WTH eA, HEPATIC, CBC, BMP, LIPID #### [address] Eosinophils/100 WBC (Bld) 0.7 % Normal . [facility] Comment on above: Performed By: #### A 1C WTH eA, HEPATIC, CBC, BMP, LIPID #### [address] Erythrocyte distribution width (RBC) [Ratio] 13.2 % Normal 11.9-15.3 [facility] Comment on above: Performed By: #### A 1C WTH eA, HEPATIC, CBC, BMP, LIPID #### [address] Hematocrit (Bld) [Volume fraction] 45.7 % Normal 34.0-46.4 [facility] Comment on above: Performed By: #### A 1C WTH eA, HEPATIC, CBC, BMP, LIPID #### [address] Hemoglobin (Bld) [Mass/Vol] 15.5 g/dL High 11.8-15.4 [facility] Comment on above: Performed By: #### A 1C WTH eA, HEPATIC, CBC, BMP, LIPID #### [address] Lymphocytes (Bld) [#/Vol] 2.1 10*3/uL Normal 1.00-4.8 [facility] Comment on above: Performed By: #### A 1C WTH eA, HEPATIC, CBC, BMP, LIPID #### [address] Lymphocytes/100 WBC (Bld) 22.3 % Normal . [facility] Comment on above: Performed By: #### A 1C WTH eA, HEPATIC, CBC, BMP, LIPID #### [address] MCH (RBC) [Entitic mass] 31.9 pg Normal 24.7-34.3 [facility] Comment on above: Performed By: #### A 1C WTH eA, HEPATIC, CBC, BMP, LIPID #### [address] MCV (RBC) [Entitic vol] 94.1 fL Normal 80-100 T [facility] Comment on above: Performed By: #### A 1C WTH eA, HEPATIC, CBC, BMP, LIPID #### [address] Mean Corpuscular HGB Conc 33.9 g/dL Normal 32.0-35.0 [facility] Comment on above: Performed By: #### A 1C WTH eA, HEPATIC, CBC, BMP, LIPID #### [address] Monocytes (Bld) [#/Vol] 0.6 10*3/uL Normal 0.0-0.8 [facility] Comment on above: Performed By: #### A 1C WTH eA, HEPATIC, CBC, BMP, LIPID #### [address] Monocytes/100 WBC (Bld) 5.8 % Normal . T [facility] Comment on above: Performed By: #### A 1C WTH eA, HEPATIC, CBC, BMP, LIPID #### [address] Neutrophils (Bld) [#/Vol] 6.7 10*3/uL Normal 1.8-7.7 [facility] Comment on above: Performed By: #### A 1C WTH eA, HEPATIC, CBC, BMP, LIPID #### [address] Neutrophils/100 WBC (Bld) 70.9 % Normal . [facility] Comment on above: Performed By: #### A 1C WTH eA, HEPATIC, CBC, BMP, LIPID #### [address] NRBC% 0.1 /100{WBC} Normal 0-0.5 [facility] Comment on above: Performed By: #### A 1C WTH eA, HEPATIC, CBC, BMP, LIPID #### [address] Platelet mean volume (Bld) [Entitic vol] 7.3 fL Normal 6.3-10.7 [facility] Comment on above: Performed By: #### A 1C WTH eA, HEPATIC, CBC, BMP, LIPID #### [address] Platelets (Bld) [#/Vol] 297 10*3/uL Normal 150-450 [facility] Comment on above: Performed By: #### A 1C WTH eA, HEPATIC, CBC, BMP, LIPID #### [address] RBC (Bld) [#/Vol] 4.86 10*6/uL Normal 3.60-5.00 [facility] Comment on above: Performed By: #### A 1C WTH eA, HEPATIC, CBC, BMP, LIPID #### [facility] [address] [place] [id number] [place] WBC (Bld) [#/Vol] 9.5 10*3/uL Normal 3.8-11.6 [facility] Comment on above: Performed By: #### A 1C WT eA, HEPATIC, CBC, BMP, LIPID #### [facility] [address] [place] [id number] [place] Creatinine [Mass/volume] in Serum or PlasmaOrdered By: Luis Ramirez on 08-17-2024 Creatinine [Mass/Vol] Creatinine [Mass/volume] in Serum or Plasma 0.60-1.20 [facility] Eosinophils Auto (Bld) [#/Vo l]Ordered By: Luis Ramirez on 08-17-2024 Eosinophils (Bld) [#/Vol] Automated eosinophil count 0.0-0.45 [facility] Eosinophils/100 WBC Auto (Bl d)Ordered By: Luis Ramirez on 08-17-2024 Eosinophils/100 WBC (Bld) Automated eosinophil % . [facility] Erythrocyte distribution wid th Auto (RBC) [Ratio]Ordered By: Luis Ramirez on 08-17-2024 Erythrocyte distribution width (RBC) [Ratio] Erythrocyte distribution width [Ratio] by Automated count 11.9-15.3 [facility] Globulin Calc (S) [Mass/Vol] Ordered By: Luis Ramirez on 08-17-2024 Globulin (S) [Mass/Vol] Serum globulin measurement by calculation (mass/volume) [facility] Glucose [Mass/volume] in Ser um or PlasmaOrdered By: Luis Ramirez on 08-17-2024 Glucose [Mass/Vol] Glucose [Mass/volume ] in Serum or Plasma High 70-100 [facility] Comment on above: ADA recommended refe rence rangeRandom Glucose Reference Range is dependent on time and content of last meal. Glucose of more than 200 mg/dL in a nonstressed, ambulatory subject supports the diagnosis of Diabetes Mellitus. Hematocrit Auto (Bld) [Volum e fraction]Ordered By: Luis Ramirez on 08-17-2024 Hematocrit (Bld) [Volume fraction] Hematocrit [Volume Fraction] of Blood by Automated count 34.0-46.4 [facility] Hemoglobin A1c/Hemoglobin.to rolf in BloodOrdered By: Luis Ramirez on 08-17-2024 HbA1c (Bld) [Mass fraction] Hemoglobin A1c percentage 4.3-5.6 [facility] Comment on above: Increased risk for d iabetes: 5.7 - 6.4diabetes: >6.4glycemic control for adults with diabetes: <7.0 Hemoglobin [Mass/volume] in BloodOrdered By: Luis Ramirez on 08-17-2024 Hemoglobin (Bld) [Mass/Vol] Hemoglobin [Mass/volume] in Blood High 11.8-15.4 [facility] Hepatic Panelon 08-17-2024 Albumin [Mass/Vol] 4.6 g/dL Normal 3.5-5.7 [facility] Comment on above: Performed By: #### A 1C WTH eA, HEPATIC, CBC, BMP, LIPID #### [facility] [address] [place] [id number] [place] Albumin/Globulin [Mass ratio] 1.5 {ratio} Normal [facility] Comment on above: Performed By: #### A 1C WTH eA, HEPATIC, CBC, BMP, LIPID #### [facility] [address] [place] [id number] [place] ALP [Catalytic activity/Vol] 73 U/L Normal 34-104 [facility] Comment on above: Performed By: #### A 1C WTH eA, HEPATIC, CBC, BMP, LIPID #### [facility] [address] [place] [id number] [place] ALT [Catalytic activity/Vol] 15 U/L Normal 7-52 [facility] Comment on above: Performed By: #### A 1C WTH eA, HEPATIC, CBC, BMP, LIPID #### [facility] [address] [place] [id number] [place] AST [Catalytic activity/Vol] 16 U/L Normal 13-39 [facility] Comment on above: Performed By: #### A 1C WTH eA, HEPATIC, CBC, BMP, LIPID #### [facility] [address] [place] [address] [place] Bilirubin [Mass/Vol] 1.2 mg/dL High 0.3-1.0 [facility] Comment on above: Performed By: #### A 1C WT eA, HEPATIC, CBC, BMP, LIPID #### [address] Bilirubin,Indirect 1.0 mg/dL Normal [facility] Comment on above: Performed By: #### A 1C WT eA, HEPATIC, CBC, BMP, LIPID #### [address] Bilirubin.indirect [Mass/Vol] 0.20 mg/dL High 0.03-0.18 [facility] Comment on above: Performed By: #### A 1C WT eA, HEPATIC, CBC, BMP, LIPID #### [address] Globulin (S) [Mass/Vol] 3.0 g/dL Normal [facility] Comment on above: Performed By: #### A 1C WT eA, HEPATIC, CBC, BMP, LIPID #### [address] Protein [Mass/Vol] 7.6 g/dL Normal 6.4-8.9 [facility] Comment on above: Performed By: #### A 1C WT eA, HEPATIC, CBC, BMP, LIPID #### [address] Leukocytes [#/volume] correc she for nucleated erythrocytes in Blood by Automated counOrdered By: Luis Ramirez on 08-17-2024 WBC corrected for nucl RBC Auto (Bld) [#/Vol] Leukocytes [#/volume] corrected for nucleated erythrocytes in Blood by Automated coun 3.8-11.6 [facility] Lipid Panelon 08-17-2024 Cholesterol [Mass/Vol] 120 mg/dL Low 140-200 [facility] Comment on above: Result Comment: Chol less than 200 mg/dl low risk Chol 201-239 mg/dl borderline risk Chol 240 mg/dl and greater high risk Performed By: #### A 1C WTH eA, HEPATIC, CBC, BMP, LIPID #### [address] [place] [address] [place] Cholesterol in HDL [Mass/Vol] 47 mg/dL Normal 23-92 [facility] Comment on above: Result Comment: HDL CHOL ATP-III CLASSIFICATION Cardiovascular Risk HDL > or equal to 60 mg/dL LOW HDL < 40 mg/dL HIGH Performed By: #### A 1C WTH eA, HEPATIC, CBC, BMP, LIPID #### [facility] [address] Cholesterol.total/Flory sterol in HDL [Mass ratio] 2.6 {ratio} Normal <5.0 [facility] Comment on above: Result Comment: PERF ORMED BY: [place] [address] PATHOLOGIST SERVICE AGENT SANDRA COBURN M.D. Performed By: #### A 1C WTH eA, HEPATIC, CBC, BMP, LIPID #### [facility] [address] LDL Cholesterol,Calculated 43 mg/dL Normal 0-100 [facility] Comment on above: Result Comment: LDL ATP III CLASSIFICATION LDL less than 100 mg/dL Optimal LDL 100-129 mg/dL Near or above optimal LDL 130-159 mg/dL Borderline high LDL 160-189 mg/dL High LDL greater than 189 mg/dL Very high Performed By: #### A 1C WTH eA, HEPATIC, CBC, BMP, LIPID #### [facility] [address] Triglyceride w/Reflex 149 mg/dL Normal 0-149 [facility] Comment on above: Result Comment: TRIG ATP III CLASSIFICATION TRIG less than 150 mg/dL Normal TRIG 150-199 mg/dL Borderline high TRIG 200-500 mg/dL High TRIG greater than 500 mg/dL Very high Standard traceable to the Center for Disease Conrtrol and Prevention (CDC) test method. Performed By: #### A 1C WTH eA, HEPATIC, CBC, BMP, LIPID #### [facility] [address] [place] [id number] [facility] VLDL CHOLESTEROL 29 mg/dL Normal [facility] Comment on above: Performed By: #### A 1C WTH eA, HEPATIC, CBC, BMP, LIPID #### [facility] [address] Lymphocytes Auto (Bld) [#/Vo l]Ordered By: Luis Ramirez on 08-17-2024 Lymphocytes (Bld) [#/Vol] Lymphocytes [#/volume] in Blood by Automated count 1.00-4.8 [facility] Lymphocytes/100 WBC Auto (Bl d)Ordered By: Luis Ramirez on 08-17-2024 Lymphocytes/100 WBC (Bld) Lymphocytes/100 leukocytes in Blood by Automated count . [facility] MCH Auto (RBC) [Entitic mass ]Ordered By: Luis Ramirez on 08-17-2024 MCH (RBC) [Entitic mass] MCH [Entitic mass] by Automated count 24.7-34.3 [facility] MCHC Auto (RBC) [Mass/Vol]Or dered By: Luis Ramirez on 08-17-2024 MCHC (RBC) [Mass/Vol] MCHC [Mass/volume] by Automated count 32.0-35.0 [facility] MCV Auto (RBC) [Entitic vol] Ordered By: Luis Ramirez on 08-17-2024 MCV (RBC) [Entitic vol] MCV [Entitic vol ume] by Automated count 80-100 [facility] Monocytes Auto (Bld) [#/Vol] Ordered By: Luis Ramirez on 08-17-2024 Monocytes (Bld) [#/Vol] Automated blood monocyte count 0.0-0.8 [facility] Monocytes/100 WBC Auto (Bld) Ordered By: Luis Ramirez on 08-17-2024 Monocytes/100 WBC (Bld) Automated monocyte % . [facility] Neutrophils Auto (Bld) [#/Vo l]Ordered By: Luis Ramirez on 08-17-2024 Neutrophils (Bld) [#/Vol] Neutrophils [#/volume] in Blood by Automated count 1.8-7.7 [facility] Neutrophils/100 WBC Auto (Bl d)Ordered By: Luis Ramirez on 08-17-2024 Neutrophils/100 WBC (Bld) Automated neutrophil % . [facility] No Panel InformationOrdered By: Luis Ramirez on 08-17-2024 Estimated GFR (CKD-EPI) > 60.0 mL/Min [facility] Creatinine Clearance (Chem N/A [facility] Nucleated erythrocytes [Pres ence] in Blood by Automated countOrdered By: Luis Ramirez on 08-17-2024 Nucleated RBC Auto Ql (Bld) Nucleated erythrocytes [Presence] in Blood by Automated count 0-0.5 [facility] Platelet mean volume Auto (B ld) [Entitic vol]Ordered By: Luis Ramirez on 08-17-2024 Platelet mean volume (Bld) [Entitic vol] Platelet mean volume [Entitic volume] in Blood by Automated count 6.3-10.7 [facility] Platelets Auto (Bld) [#/Vol] Ordered By: Luis Ramirez on 08-17-2024 Platelets (Bld) [#/Vol] Platelets [#/vol ume] in Blood by Automated count 150-450 [facility] Potassium [Moles/volume] in Serum or PlasmaOrdered By: Luis Ramirez on 08-17-2024 Potassium [Moles/Vol] Potassium [Moles/volume] in Serum or Plasma 3.5-5.1 [facility] Protein [Mass/volume] in Ser um or PlasmaOrdered By: Luis Ramirez on 08-17-2024 Protein [Mass/Vol] Protein [Mass/volume ] in Serum or Plasma 6.4-8.9 [facility] RBC Auto (Bld) [#/Vol]Ordere d By: Luis Ramirez on 08-17-2024 RBC (Bld) [#/Vol] Erythrocytes [#/volume] in Blood by Automated count 3.60-5.00 [facility] Serum or plasma albumin/glob ulin mass ratioOrdered By: Luis Ramirez on 08-17-2024 Albumin/Globulin [Mass ratio] Serum or plasma albumin/globulin mass ratio [facility] Serum or plasma anion gap de terminationOrdered By: Luis Ramirez on 08-17-2024 Anion gap [Moles/Vol] Serum or plasma an ion gap determination 6.0-15.0 [facility] Serum or plasma non-glucuron idated bilirubin measurement (mass/volume)Ordered By: Luis Ramirez on 08-17-2024 Bilirubin.indirect [Mass/Vol] Serum or plasma non-glucuronidated bilirubin measurement (mass/volume) [facility] Serum or plasma total choles terol/high density lipoprotein (HDL) cholesterol mass ratOrdered By: Luis Ramirez on 08-17-2024 Cholesterol.total/Flory sterol in HDL [Mass ratio] Serum or plasma total cholesterol/high density lipoprotein (HDL) cholesterol mass rat <5.0 [facility] Sodium [Moles/volume] in Ser um or PlasmaOrdered By: Luis Ramirez on 08-17-2024 Sodium [Moles/Vol] Sodium [Moles/volume ] in Serum or Plasma 136-145 [facility] Triglyceride [Mass/volume] i n Serum or PlasmaOrdered By: Luis Ramirez on 08-17-2024 Triglyceride [Mass/Vol] Triglyceride [Mass/volume] in Serum or Plasma 0-149 [facility] Comment on above: TRIG ATP III CLASSIF ICATIONTRIG less than 150 mg/dL NormalTRIG 150-199 mg/dL Borderline highTRIG 200-500 mg/dL High TRIG greater than 500 mg/dL Very highStandard traceable to the Center for Disease Conrtrol and Prevention (CDC) test method. Urea nitrogen [Mass/volume] in Serum or PlasmaOrdered By: Luis Ramirez on 08-17-2024 Urea nitrogen [Mass/Vol] Urea nitrogen [Mass/volume] in Serum or Plasma 7-25 [facility] WBC Auto (Bld) [#/Vol]Ordere d By: Luis Ramirez on 08-17-2024 WBC (Bld) [#/Vol] Leukocytes [#/volume ] in Blood by Automated count 3.8-11.6 [facility] MM screening mammo BI w/CADo n 03-20-2024 MM screening mammo BI w/CAD [facility] [place] [address] Mammography Report Signed Patient: Paula Bone V MR#: [id number] 96 : 1955 Acct:[id number] Age/Sex: 69 / F ADM Date: 03/20/24 Loc: [place] Room: [facility] Attending Dr: Referral Self Copies to: Luis Ramirez,DO SELF,REFERRAL Ordering Provider: SELF,REFERRAL Date of Service: [...] Ruth Valverde M.D.03/20/2024 3:26 PM Dictation Location: [facility] Transcribed By: [facility] 03/20/24 1526 Dictated By: Ruth Valverde MD 03/20/24 1522 Signed By: 03/20/24 1526 Normal [facility] A1C with Estimated Average G jesusn 01-17-2024 Glucose [Mass/Vol] 120 mg/dL Normal [facility] Comment on above: Order Comment: Reaso n for Exam Impaired glucose tolerance Result Comment: PERF ORMED BY: [place] [address] PATHOLOGIST SERVICE AGENT ELIEZER TEMPLE M.D. Performed By: #### A 1C [facility] #### [address] Cholesterol [Mass/volume] in Serum or PlasmaOrdered By: Luis Ramirez on 01-17-2024 Cholesterol [Mass/Vol] 146 mg/dL Normal 140-200 [facility] Comment on above: Chol less than 200 m g/dl low riskChol 201-239 mg/dl borderline riskChol 240 mg/dl and greater high risk Order Comment: Reaso n for Exam Mixed hyperlipidemia Result Comment: Chol less than 200 mg/dl low risk Chol 201-239 mg/dl borderline risk Chol 240 mg/dl and greater high risk Performed By: #### L IPID #### [facility] [address] Cholesterol in LDL Calc [Mas s/Vol]Ordered By: Luis Ramirez on 01-17-2024 Cholesterol in LDL [Mass/Vol] 70 mg/dL 0-100 [facility] Comment on above: LDL ATP III CLASSIFI CATIONLDL less than 100 mg/dL OptimalLDL 100-129 mg/dL Near or above optimalLDL 130-159 mg/dL Borderline highLDL 160-189 mg/dL HighLDL greater than 189 mg/dL Very high Cholesterol in VLDL Calc [Ma ss/Vol]Ordered By: Luis Ramirez on 01-17-2024 Cholesterol in VLDL [Mass/Vol] 27 mg/dL [facility] Glucose mean value [Mass/vol ume] in Blood Estimated from glycated hemoglobinOrdered By: Luis Ramirez on 01-17-2024 Average glucose Estimated from glycated hemoglobin (Bld) [Mass/Vol] 120 mg/dL [facility] Hemoglobin A1c percentageOrd ered By: Luis Ramirez on 01-17-2024 HbA1c (Bld) [Mass fraction] 5.8 % High 4.3-5.6 [facility] Comment on above: Increased risk for d iabetes: 5.7 - 6.4diabetes: >6.4glycemic control for adults with diabetes: <7.0 Order Comment: Reaso n for Exam Impaired glucose tolerance Result Comment: Incr eased risk for diabetes: 5.7 - 6.4 diabetes: >6.4 glycemic control for adults with diabetes: <7.0 Performed By: #### A 1C WTH eA #### [facility] [address] Lipid Panelon 01-17-2024 LDL Cholesterol,Calculated 70 mg/dL Normal 0-100 [facility] Comment on above: Order Comment: Reaso n for Exam Mixed hyperlipidemia Result Comment: LDL ATP III CLASSIFICATION LDL less than 100 mg/dL Optimal LDL 100-129 mg/dL Near or above optimal LDL 130-159 mg/dL Borderline high LDL 160-189 mg/dL High LDL greater than 189 mg/dL Very high Performed By: #### L IPID #### [facility] [address] Triglyceride w/Reflex 138 mg/dL Normal 0-149 [facility] Comment on above: Order Comment: Reaso n for Exam Mixed hyperlipidemia Result Comment: TRIG ATP III CLASSIFICATION TRIG less than 150 mg/dL Normal TRIG 150-199 mg/dL Borderline high TRIG 200-500 mg/dL High TRIG greater than 500 mg/dL Very high Standard traceable to the Center for Disease Conrtrol and Prevention (CDC) test method. Performed By: #### L IPID #### [facility] [address] VLDL CHOLESTEROL 27 mg/dL Normal [facility] Comment on above: Order Comment: Reaso n for Exam Mixed hyperlipidemia Performed By: #### L IPID #### [facility] [address] Serum or plasma high density lipoprotein (HDL) cholesterol measurementOrdered By: Luis Ramirez on 01-17-2024 Cholesterol in HDL [Mass/Vol] 48 mg/dL Normal 23-92 [facility] Comment on above: HDL CHOL ATP-III CLA SSIFICATION Cardiovascular RiskHDL > or equal to 60 mg/dL LOWHDL < 40 mg/dL HIGH Order Comment: Reaso n for Exam Mixed hyperlipidemia Result Comment: HDL CHOL ATP-III CLASSIFICATION Cardiovascular Risk HDL > or equal to 60 mg/dL LOW HDL < 40 mg/dL HIGH Performed By: #### L IPID #### [facility] [address] Serum or plasma total choles terol/high density lipoprotein (HDL) cholesterol mass ratOrdered By: Luis Richardsonr on 01-17-2024 Cholesterol.total/Flory sterol in HDL [Mass ratio] 3.0 {ratio} Normal <5.0 [facility] Comment on above: Order Comment: Reaso n for Exam Mixed hyperlipidemia Result Comment: PERF ORMED BY: [place] [address] PATHOLOGIST SERVICE AGENT ELIEZER TEMPLE M.D. Performed By: #### L IPID #### [facility] [address] Triglyceride [Mass/volume] i n Serum or PlasmaOrdered By: Luis Ramirez on 01-17-2024 Triglyceride [Mass/Vol] 138 mg/dL 0-149 [facility] Comment on above: TRIG ATP III CLASSIF ICATIONTRIG less than 150 mg/dL NormalTRIG 150-199 mg/dL Borderline highTRIG 200-500 mg/dL High TRIG greater than 500 mg/dL Very highStandard traceable to the Center for Disease Conrtrol and Prevention (CDC) test method. Alanine aminotransferase [En zymatic activity/volume] in Serum or PlasmaOrdered By: Matt Mckeon on 07-30-2023 ALT [Catalytic activity/Vol] 14 U/L 7-52 [facility] Aspartate aminotransferase [ Enzymatic activity/volume] in Serum or PlasmaOrdered By: Matt Mckeon on 07-30-2023 AST [Catalytic activity/Vol] 15 U/L 13-39 [facility] Potassium [Moles/volume] in Serum or PlasmaOrdered By: Matt Mckeon on 07-30-2023 Potassium [Moles/Vol] 4.7 mmol/L 3.5-5.1 [facility] Cholesterol [Mass/volume] in Serum or PlasmaOrdered By: Luis Ramirez on 07-15-2023 Cholesterol [Mass/Vol] 151 mg/dL 140-200 [facility] Comment on above: Chol less than 200 m g/dl low riskChol 201-239 mg/dl borderline riskChol 240 mg/dl and greater high risk Cholesterol in LDL Calc [Mas s/Vol]Ordered By: Luis Ramirez on 07-15-2023 Cholesterol in LDL [Mass/Vol] 71 mg/dL 0-100 [facility] Comment on above: LDL ATP III CLASSIFI CATIONLDL less than 100 mg/dL OptimalLDL 100-129 mg/dL Near or above optimalLDL 130-159 mg/dL Borderline highLDL 160-189 mg/dL HighLDL greater than 189 mg/dL Very high Cholesterol in VLDL Calc [Ma ss/Vol]Ordered By: Luis Ramirez on 07-15-2023 Cholesterol in VLDL [Mass/Vol] 34 mg/dL [facility] Glucose mean value [Mass/vol ume] in Blood Estimated from glycated hemoglobinOrdered By: Luis Ramirez on 07-15-2023 Average glucose Estimated from glycated hemoglobin (Bld) [Mass/Vol] 117 mg/dL [facility] Hemoglobin A1c percentageOrd ered By: Luis Ramirez on 07-15-2023 HbA1c (Bld) [Mass fraction] 5.7 % 4.3-5.6 [facility] Comment on above: Increased risk for d iabetes: 5.7 - 6.4diabetes: >6.4glycemic control for adults with diabetes: <7.0 Serum or plasma high density lipoprotein (HDL) cholesterol measurementOrdered By: Luis Ramirez on 07-15-2023 Cholesterol in HDL [Mass/Vol] 45 mg/dL 23-92 [facility] Comment on above: HDL CHOL ATP-III CLA SSIFICATION Cardiovascular RiskHDL > or equal to 60 mg/dL LOWHDL < 40 mg/dL HIGH Serum or plasma total choles terol/high density lipoprotein (HDL) cholesterol mass ratOrdered By: Luis Ramirez on 07-15-2023 Cholesterol.total/Flory sterol in HDL [Mass ratio] 3.4 {ratio} <5.0 [facility] Triglyceride [Mass/volume] i n Serum or PlasmaOrdered By: Luis Ramirez on 07-15-2023 Triglyceride [Mass/Vol] 173 mg/dL 0-149 [facility] Comment on above: TRIG ATP III CLASSIF ICATIONTRIG less than 150 mg/dL NormalTRIG 150-199 mg/dL Borderline highTRIG 200-500 mg/dL High TRIG greater than 500 mg/dL Very highStandard traceable to the Center for Disease Conrtrol and Prevention (CDC) test method. Alanine aminotransferase [En zymatic activity/volume] in Serum or PlasmaOrdered By: Luis Ramirez on 01-14-2023 ALT [Catalytic activity/Vol] 15 U/L 7-52 [facility] Albumin [Mass/volume] in Ser um or Plasma by Bromocresol green (BCG) dye binding methoOrdered By: Luis Ramirez on 01-14-2023 Albumin BCG dye [Mass/Vol] 4.2 g/dL 3.5-5.7 [facility] Alkaline phosphatase [Enzyma tic activity/volume] in Serum or PlasmaOrdered By: Luis Ramirez on 01-14-2023 ALP [Catalytic activity/Vol] 65 U/L 34-104 [facility] Aspartate aminotransferase [ Enzymatic activity/volume] in Serum or PlasmaOrdered By: Luis Ramirez on 01-14-2023 AST [Catalytic activity/Vol] 18 U/L 13-39 [facility] Basophils Auto (Bld) [#/Vol] Ordered By: Luis Ramirez on 01-14-2023 Basophils (Bld) [#/Vol] 0.1 10*3/uL 0.0-0.2 [facility] Basophils/100 WBC Auto (Bld) Ordered By: Luis Ramirez on 01-14-2023 Basophils/100 WBC (Bld) 0.7 % . [facility] Bilirubin.direct [Mass/volum e] in Serum or PlasmaOrdered By: Luis Ramirez on 01-14-2023 Bilirubin.direct [Mass/Vol] 0.10 mg/dL 0.03-0.18 [facility] Bilirubin.total [Mass/volume ] in Serum or PlasmaOrdered By: Luis Ramirez on 01-14-2023 Bilirubin [Mass/Vol] 0.8 mg/dL 0.3-1.0 [facility] Calcium [Mass/volume] in Ser um or PlasmaOrdered By: Luis Ramirez on 01-14-2023 Calcium [Mass/Vol] 9.8 mg/dL 8.6-10.3 [facility] Carbon dioxide, total [Moles /volume] in Serum or PlasmaOrdered By: Luis Ramirez on 01-14-2023 CO2 [Moles/Vol] 27.6 mmol/L 21.0-31.0 [facility] Chloride [Moles/volume] in S daina or PlasmaOrdered By: Luis Ramirez on 01-14-2023 Chloride [Moles/Vol] 104 mmol/L 98-107 [facility] Cholesterol [Mass/volume] in Serum or PlasmaOrdered By: Luis Ramirez on 01-14-2023 Cholesterol [Mass/Vol] 135 mg/dL 140-200 [facility] Comment on above: Chol less than 200 m g/dl low riskChol 201-239 mg/dl borderline riskChol 240 mg/dl and greater high risk Cholesterol in LDL Calc [Mas s/Vol]Ordered By: Luis Ramirez on 01-14-2023 Cholesterol in LDL [Mass/Vol] 65 mg/dL 0-100 [facility] Comment on above: LDL ATP III CLASSIFI CATIONLDL less than 100 mg/dL OptimalLDL 100-129 mg/dL Near or above optimalLDL 130-159 mg/dL Borderline highLDL 160-189 mg/dL HighLDL greater than 189 mg/dL Very high Cholesterol in VLDL Calc [Ma ss/Vol]Ordered By: Luis Ramirez on 01-14-2023 Cholesterol in VLDL [Mass/Vol] 23 mg/dL [facility] Creatinine [Mass/volume] in Serum or PlasmaOrdered By: Luis Ramirez on 01-14-2023 Creatinine [Mass/Vol] 0.83 mg/dL 0.60-1.20 [facility] Eosinophils Auto (Bld) [#/Vo l]Ordered By: Luis Ramirez on 01-14-2023 Eosinophils (Bld) [#/Vol] 0.1 10*3/uL 0.0-0.45 [facility] Eosinophils/100 WBC Auto (Bl d)Ordered By: Luis Ramirez on 01-14-2023 Eosinophils/100 WBC (Bld) 0.9 % . [facility] Erythrocyte distribution wid th Auto (RBC) [Ratio]Ordered By: Luis Ramirez on 01-14-2023 Erythrocyte distribution width (RBC) [Ratio] 13.1 % 11.9-15.3 [facility] Globulin Calc (S) [Mass/Vol] Ordered By: Luis Ramirez on 01-14-2023 Globulin (S) [Mass/Vol] 2.8 g/dL [facility] Glucose [Mass/volume] in Ser um or PlasmaOrdered By: Luis Ramirez on 01-14-2023 Glucose [Mass/Vol] 97 mg/dL 70-100 [facility] Comment on above: ADA recommended refe [...] from glycated hemoglobin (Bld) [Mass/Vol] 120 mg/dL [facility] Hematocrit Auto (Bld) [Volum e fraction]Ordered By: Luis Ramirez on 01-14-2023 Hematocrit (Bld) [Volume fraction] 41.8 % 34.0-46.4 [facility] Hemoglobin A1c percentageOrd ered By: Luis Ramirez on 01-14-2023 HbA1c (Bld) [Mass fraction] 5.8 % 4.3-5.6 [facility] Comment on above: Increased risk for d iabetes: 5.7 - 6.4diabetes: >6.4glycemic control for adults with diabetes: <7.0 Hemoglobin [Mass/volume] in BloodOrdered By: Luis Ramirez on 01-14-2023 Hemoglobin (Bld) [Mass/Vol] 14.1 g/dL 11.8-15.4 [facility] Leukocytes [#/volume] correc she for nucleated erythrocytes in Blood by Automated counOrdered By: Luis Ramirez on 01-14-2023 WBC corrected for nucl RBC Auto (Bld) [#/Vol] 8.1 10*3/uL 3.8-11.6 [facility] Lymphocytes Auto (Bld) [#/Vo l]Ordered By: Luis Ramirez on 01-14-2023 Lymphocytes (Bld) [#/Vol] 2.5 10*3/uL 1.00-4.8 [facility] Lymphocytes/100 WBC Auto (Bl d)Ordered By: Luis Ramirez on 01-14-2023 Lymphocytes/100 WBC (Bld) 31.1 % . [facility] MCH Auto (RBC) [Entitic mass ]Ordered By: Luis Ramirez on 01-14-2023 MCH (RBC) [Entitic mass] 30.7 pg 24.7-34.3 [facility] MCHC Auto (RBC) [Mass/Vol]Or dered By: Luis Ramirez on 01-14-2023 MCHC (RBC) [Mass/Vol] 33.7 g/dL 32.0-35.0 [facility] MCV Auto (RBC) [Entitic vol] Ordered By: Luis Ramirez on 01-14-2023 MCV (RBC) [Entitic vol] 91.0 fL 80-100 [facility] Monocytes Auto (Bld) [#/Vol] Ordered By: Luis Ramirez on 01-14-2023 Monocytes (Bld) [#/Vol] 0.4 10*3/uL 0.0-0.8 [facility] Monocytes/100 WBC Auto (Bld) Ordered By: Luis Ramirez on 01-14-2023 Monocytes/100 WBC (Bld) 4.8 % . [facility] Neutrophils Auto (Bld) [#/Vo l]Ordered By: Luis Ramirez on 01-14-2023 Neutrophils (Bld) [#/Vol] 5.1 10*3/uL 1.8-7.7 [facility] Neutrophils/100 WBC Auto (Bl d)Ordered By: Luis Ramirez on 01-14-2023 Neutrophils/100 WBC (Bld) 62.5 % . [facility] No Panel InformationOrdered By: Luis Ramirez on 01-14-2023 Estimated GFR (CKD-EPI) > 60.0 mL/Min [facility] Creatinine Clearance (Chem N/A [facility] Nucleated erythrocytes [Pres ence] in Blood by Automated countOrdered By: Luis Ramirez on 01-14-2023 Nucleated RBC Auto Ql (Bld) 0.1 /100{WBC} 0-0.5 [facility] Platelet mean volume Auto (B ld) [Entitic vol]Ordered By: Luis Ramirez on 01-14-2023 Platelet mean volume (Bld) [Entitic vol] 7.8 fL 6.3-10.7 [facility] Platelets Auto (Bld) [#/Vol] Ordered By: Luis Ramirez on 01-14-2023 Platelets (Bld) [#/Vol] 256 10*3/uL 150-450 [facility] Potassium [Moles/volume] in Serum or PlasmaOrdered By: Luis Ramirez on 01-14-2023 Potassium [Moles/Vol] 4.8 mmol/L 3.5-5.1 [facility] Protein [Mass/volume] in Ser um or PlasmaOrdered By: Luis Ramirez on 01-14-2023 Protein [Mass/Vol] 7.0 g/dL 6.4-8.9 [facility] RBC Auto (Bld) [#/Vol]Ordere d By: Luis Ramirez on 01-14-2023 RBC (Bld) [#/Vol] 4.60 10*6/uL 3.60-5.00 [facility] Serum or plasma albumin/glob ulin mass ratioOrdered By: Luis Ramirez on 01-14-2023 Albumin/Globulin [Mass ratio] 1.5 {ratio} [facility] Serum or plasma anion gap de terminationOrdered By: Luis Ramirez on 01-14-2023 Anion gap [Moles/Vol] 11.2 mmol/L 6.0-15.0 [facility] Serum or plasma high density lipoprotein (HDL) cholesterol measurementOrdered By: Luis Ramirez on 01-14-2023 Cholesterol in HDL [Mass/Vol] 47 mg/dL 23-92 [facility] Comment on above: HDL CHOL ATP-III CLA SSIFICATION Cardiovascular RiskHDL > or equal to 60 mg/dL LOWHDL < 40 mg/dL HIGH Serum or plasma non-glucuron idated bilirubin measurement (mass/volume)Ordered By: Luis Ramirez on 01-14-2023 Bilirubin.indirect [Mass/Vol] 0.7 mg/dL [facility] Serum or plasma total choles terol/high density lipoprotein (HDL) cholesterol mass ratOrdered By: Luis Ramirez on 01-14-2023 Cholesterol.total/Flory sterol in HDL [Mass ratio] 2.9 {ratio} <5.0 [facility] Sodium [Moles/volume] in Ser um or PlasmaOrdered By: Luis Ramirez on 01-14-2023 Sodium [Moles/Vol] 138 mmol/L 136-145 [facility] Triglyceride [Mass/volume] i n Serum or PlasmaOrdered By: Luis Ramirez on 01-14-2023 Triglyceride [Mass/Vol] 117 mg/dL 0-149 [facility] Comment on above: TRIG ATP III CLASSIF ICATIONTRIG less than 150 mg/dL NormalTRIG 150-199 mg/dL Borderline highTRIG 200-500 mg/dL High TRIG greater than 500 mg/dL Very highStandard traceable to the Center for Disease Conrtrol and Prevention (CDC) test method. Urea nitrogen [Mass/volume] in Serum or PlasmaOrdered By: Luis Ramirez on 01-14-2023 Urea nitrogen [Mass/Vol] 19 mg/dL 7-25 [facility] WBC Auto (Bld) [#/Vol]Ordere d By: Luis Ramirez on 01-14-2023 WBC (Bld) [#/Vol] 8.1 10*3/uL 3.8-11.6 [facility] Cholesterol [Mass/volume] in Serum or PlasmaOrdered By: Luis Ramirez on 07-25-2022 Cholesterol [Mass/Vol] 148 mg/dL 140-200 [facility] Comment on above: Chol less than 200 m g/dl low riskChol 201-239 mg/dl borderline riskChol 240 mg/dl and greater high risk Cholesterol in LDL Calc [Mas s/Vol]Ordered By: Luis Ramirez on 07-25-2022 Cholesterol in LDL [Mass/Vol] 82 mg/dL 0-100 [facility] Comment on above: LDL ATP III CLASSIFI CATIONLDL less than 100 mg/dL OptimalLDL 100-129 mg/dL Near or above optimalLDL 130-159 mg/dL Borderline highLDL 160-189 mg/dL HighLDL greater than 189 mg/dL Very high Cholesterol in VLDL Calc [Ma ss/Vol]Ordered By: Luis Ramirez on 07-25-2022 Cholesterol in VLDL [Mass/Vol] 13 mg/dL [facility] Glucose mean value [Mass/vol ume] in Blood Estimated from glycated hemoglobinOrdered By: Luis Ramirez on 07-25-2022 Average glucose Estimated from glycated hemoglobin (Bld) [Mass/Vol] 120 mg/dL [facility] Hemoglobin A1c percentageOrd ered By: Luis Ramirez on 07-25-2022 HbA1c (Bld) [Mass fraction] 5.8 % 4.3-5.6 [facility] Comment on above: Increased risk for d iabetes: 5.7 - 6.4diabetes: >6.4glycemic control for adults with diabetes: <7.0 Serum or plasma high density lipoprotein (HDL) cholesterol measurementOrdered By: Luis Ramirez on 07-25-2022 Cholesterol in HDL [Mass/Vol] 53 mg/dL 35-85 [facility] Comment on above: HDL CHOL ATP-III CLA SSIFICATION Cardiovascular RiskHDL > or equal to 60 mg/dL LOWHDL < 40 mg/dL HIGH Serum or plasma total choles terol/high density lipoprotein (HDL) cholesterol mass ratOrdered By: Luis Ramirez on 07-25-2022 Cholesterol.total/Flory sterol in HDL [Mass ratio] 2.8 {ratio} <5.0 [facility] Triglyceride [Mass/volume] i n Serum or PlasmaOrdered By: Luis Ramirez on 07-25-2022 Triglyceride [Mass/Vol] 67 mg/dL 35-149 [facility] Comment on above: TRIG ATP III CLASSIF ICATIONTRIG less than 150 mg/dL NormalTRIG 150-199 mg/dL Borderline highTRIG 200-500 mg/dL High TRIG greater than 500 mg/dL Very highStandard traceable to the Center for Disease Conrtrol and Prevention (CDC) test method. Stool Occult Bl. Scr. (Guaia c)on 10-19-2021 Hemoglobin.gastrointest inal Ql (Stl) NEG X 3 [employer] Other Urine 10 SGon 08-07-2021 Albumin DL <= 20 mg/L (U) [Mass/Vol] 30 mg/dL [employer] Other Albumin DL <= 20 mg/L (U) [Mass/Vol] Negative [employer] Other pH (U) 5 [pH] [employer] Other Urine 10 SG normail [employer] Other Urine 10 SG Negative [employer] Other Urine 10 SG 1.005 [employer] Other Urine 10 SG normal [employer] Other Urine 10 SGon 07-20-2021 Albumin DL <= 20 mg/L (U) [Mass/Vol] 30 mg/dL [employer] Other Albumin DL <= 20 mg/L (U) [Mass/Vol] + [employer] Other pH (U) 5 [pH] [employer] Other Urine 10 SG normal [employer] Other Urine 10 SG Negative [employer] Other Urine 10 SG 1.020 [employer] Other Consent for COVID Vaccineon 10-07-2020 SARS-CoV-2 (COVID-19) RNA PUJA+probe Ql (Unsp spec) [id number]#1 .00CD:127 [facility] Consent for COVID Vaccineon 09-17-2020 SARS-CoV-2 (COVID-19) RNA PUJA+probe Ql (Unsp spec) [id number] #1.00CD:127 [facility] Consent for Treatmenton 09-05 Consent for Treatment [id number] #1.00CD:127 [facility] Coding Summary.on 09-15-2020 Coding Summary. CODING DATE: 09/15/2020 [facility] STATUS: PAYOR: Medicare APC DESCRIPTION [id number] [...] CphT Date Saved: 09/15/2020 06:55 pm Normal [facility] Vital Signs Date Time Vital Sign Value Performing Clinician Facility 08-21-2024 10:14-0500 Body height 165.1 cm Luis Oberer DO Work Phone: [facility] 08-21-2024 10:14-0500 Body mass index (BMI) [Ratio] 37.7 kg/m2 Luis Oberer DO Work Phone: [facility] 08-21-2024 10:14-0500 Body weight 102.73 kg Luis Oberer DO Work Phone: [facility] 08-21-2024 10:14-0500 Diastolic blood pressure 67 mm[Hg] Luis Oberer DO Work Phone: [facility] 08-21-2024 10:14-0500 Heart rate 86 /min Luis Oberer DO Work Phone: [facility] 08-21-2024 10:14-0500 Respiratory rate 18 /min Luis Oberer DO Work Phone: [facility] 08-21-2024 10:14-0500 SaO2% (BldA) [Mass fraction] 97 % Luis Oberer DO Work Phone: [facility] 08-21-2024 10:14-0500 Systolic blood pressure 114 mm[Hg] Luis Oberer DO Work Phone: [facility] 01-24-2024 08:45-0400 Body height 165.1 cm DO Luis Oberer Work Phone: [facility] 01-24-2024 08:45-0400 Body mass index (BMI) [Ratio] 36.1 kg/m2 DO Luis Oberer Work Phone: [facility] 01-24-2024 08:45-0400 Body temperature 98.1 [degF] DO Luis Oberer Work Phone: [facility] 01-24-2024 08:45-0400 Body weight 98.42 kg DO Luis Oberer Work Phone: [facility] 01-24-2024 08:45-0400 Diastolic blood pressure 74 mm[Hg] DO Luis Oberer Work Phone: [facility] 01-24-2024 08:45-0400 Heart rate 79 /min DO Luis Oberer Work Phone: [facility] 01-24-2024 08:45-0400 Respiratory rate 16 /min DO Luis Oberer Work Phone: [facility] 01-24-2024 08:45-0400 SaO2% (BldA) [Mass fraction] 96 % DO Luis Oberer Work Phone: [facility] 01-24-2024 08:45-0400 Systolic blood pressure 122 mm[Hg] DO Luis Oberer Work Phone: [facility] 07-22-2023 09:30-0500 Body height 143.51 cm Luis Oberer Other [facility] [employer] Other 07-22-2023 09:30-0500 Body mass index (BMI) [Ratio] 53.51 kg/m2 Luis Oberer Other [facility] [employer] Other 07-22-2023 09:30-0500 Body temperature 97.9 [degF] Luis Oberer Other [employer] Other 07-22-2023 09:30-0500 Body weight 110.22 kg Luis Oberer Other [employer] Other 07-22-2023 09:30-0500 Diastolic blood pressure 76 mm[Hg] Luis Oberer Other [employer] Other 07-22-2023 09:30-0500 Respiratory rate 16 /min Luis Oberer Other [employer] Other 07-22-2023 09:30-0500 SaO2% (BldA) [Mass fraction] 96 % Luis Oberer Other [employer] Other 07-22-2023 09:30-0500 Systolic blood pressure 117 mm[Hg] Luis Oberer Other [employer] Other 01-21-2023 08:15-0400 Body height 143.51 cm Luis Oberer Other [employer] Other 01-21-2023 08:15-0400 Body mass index (BMI) [Ratio] 52.99 kg/m2 Luis Oberer Other [employer] Other 01-21-2023 08:15-0400 Body temperature 97.4 [degF] Luis Oberer Other [employer] Other 01-21-2023 08:15-0400 Body weight 109.14 kg Luis Oberer Other [employer] Other 01-21-2023 08:15-0400 Diastolic blood pressure 68 mm[Hg] Luis Oberer Other [employer] Other 01-21-2023 08:15-0400 Respiratory rate 16 /min Luis Oberer Other [employer] Other 01-21-2023 08:15-0400 SaO2% (BldA) [Mass fraction] 95 % Luis Oberer Other [employer] Other 01-21-2023 08:15-0400 Systolic blood pressure 106 mm[Hg] Luis Oberer Other [employer] Other 01-25-2022 10:15-0400 Body height 143.51 cm Luis Oberer Other [employer] Other 01-25-2022 10:15-0400 Body mass index (BMI) [Ratio] 52.94 kg/m2 Luis Oberer Other [employer] Other 01-25-2022 10:15-0400 Body temperature 98.2 [degF] Luis Oberer Other [employer] Other 01-25-2022 10:15-0400 Body weight 109.05 kg Luis Oberer Other [employer] Other 01-25-2022 10:15-0400 Diastolic blood pressure 65 mm[Hg] Luis Oberer Other [employer] Other 01-25-2022 10:15-0400 Respiratory rate 16 /min Luis Oberer Other [employer] Other 01-25-2022 10:15-0400 SaO2% (BldA) [Mass fraction] 97 % Luis Oberer Other [employer] Other 01-25-2022 10:15-0400 Systolic blood pressure 122 mm[Hg] Luis Oberer Other [employer] Other 11-17-2021 11:00-0400 Body height 143.51 cm Luis Oberer Other [employer] Other 11-17-2021 11:00-0400 Body mass index (BMI) [Ratio] 53.51 kg/m2 Luis Oberer Other [employer] Other 11-17-2021 11:00-0400 Body temperature 97.9 [degF] Luis Oberer Other [employer] Other 11-17-2021 11:00-0400 Body weight 110.22 kg Luis Oberer Other [employer] Other 11-17-2021 11:00-0400 Diastolic blood pressure 74 mm[Hg] Luis Oberer Other [employer] Other 11-17-2021 11:00-0400 Respiratory rate 18 /min Luis Oberer Other [employer] Other 11-17-2021 11:00-0400 SaO2% (BldA) [Mass fraction] 97 % Luis Oberer Other [employer] Other 11-17-2021 11:00-0400 Systolic blood pressure 126 mm[Hg] Luis Oberer Other [employer] Other 10-26-2021 14:45-0400 Body height 143.51 cm Luis Oberer Other [employer] Other 10-26-2021 14:45-0400 Body mass index (BMI) [Ratio] 54.26 kg/m2 Luis Oberer Other [employer] Other 10-26-2021 14:45-0400 Body temperature 98.4 [degF] Luis Oberer Other [employer] Other 10-26-2021 14:45-0400 Body weight 111.77 kg Luis Oberer Other [employer] Other 10-26-2021 14:45-0400 Diastolic blood pressure 74 mm[Hg] Luis Oberer Other [employer] Other 10-26-2021 14:45-0400 Respiratory rate 16 /min Luis Oberer Other [employer] Other 10-26-2021 14:45-0400 SaO2% (BldA) [Mass fraction] 97 % Luis Oberer Other [employer] Other 10-26-2021 14:45-0400 Systolic blood pressure 127 mm[Hg] Luis Oberer Other [employer] Other 07-20-2021 10:00-0500 Body height 143.51 cm Luis Oberer Other [employer] Other 07-20-2021 10:00-0500 Body mass index (BMI) [Ratio] 52.85 kg/m2 Luis Oberer Other [employer] Other 07-20-2021 10:00-0500 Body temperature 97.8 [degF] Luis Oberer Other [employer] Other 07-20-2021 10:00-0500 Body weight 108.86 kg Luis Oberer Other [employer] Other 07-20-2021 10:00-0500 Diastolic blood pressure 84 mm[Hg] Luis Oberer Other [employer] Other 07-20-2021 10:00-0500 Respiratory rate 16 /min Luis Oberer Other [employer] Other 07-20-2021 10:00-0500 SaO2% (BldA) [Mass fraction] 94 % Luis Oberer Other [employer] Other 07-20-2021 10:00-0500 Systolic blood pressure 126 mm[Hg] Luis Oberer Other [employer] Other Encounters Encounter Date Encounter Type Care Provider Facility Start: 08-21-2024 End: 08-21-2024 Patient encounter procedure Luis Oberer DO Work Phone: [facility] Start: 08-21-2024 End: 08-21-2024 ambulatory Luis Oberer DO Work Phone: [facility] Work Phone: Start: 08-21-2024 End: 08-21-2024 Patient encounter procedure Luis Oberer DO Work Phone: [facility] Work Phone: Start: 08-17-2024 End: 08-17-2024 Patient encounter procedure Luis Oberer DO Work Phone: [facility] [place] Work Phone: Start: 08-17-2024 End: 08-17-2024 ambulatory Luis Oberer DO Work Phone: [facility] Work Phone: Start: 03-20-2024 End: 03-20-2024 Patient encounter procedure DO Luis Oberer Work Phone: [facility] Work Phone: Start: 03-20-2024 End: 03-20-2024 ambulatory DO Luis Oberer Work Phone: [facility] Work Phone: Start: 01-24-2024 End: 01-24-2024 ambulatory DO Luis Oberer Work Phone: [facility] Work Phone: Start: 01-24-2024 End: 01-24-2024 Encounter for general adult medical examination without abnormal findings DO Luis Oberer Work Phone: [facility] Start: 01-24-2024 End: 01-24-2024 Patient encounter procedure DO Luis Oberer Work Phone: [facility] [place] Work Phone: Start: 01-17-2024 End: 01-17-2024 Patient encounter procedure DO Luis Oberer Work Phone: [facility] [place] Work Phone: Start: 01-17-2024 End: 01-17-2024 ambulatory DO Luis Oberer Work Phone: [facility] Work Phone: Start: 12-18-2023 Non-patient / Non-visit DO Georges l Oberer Work Phone: [facility] [place] Work Phone: Start: 07-30-2023 End: 07-30-2023 ambulatory DO Luis Oberer Work Phone: [facility] Work Phone: Start: 07-30-2023 End: 07-30-2023 Patient encounter procedure DO Luis Oberer Work Phone: [facility] [place] Work Phone: Start: 07-22-2023 End: 07-22-2023 ambulatory Luis Oberer Other [employer] Other Start: 07-22-2023 Office outpatient vi sit 25 minutes Luis Oberer [facility] Start: 07-22-2023 End: 07-22-2023 Patient encounter procedure DO Luis Oberer Work Phone: [facility] Work Phone: Start: 07-15-2023 End: 07-15-2023 ambulatory DO Luis Oberer Work Phone: [facility] Work Phone: Start: 07-15-2023 End: 07-15-2023 Patient encounter procedure DO Luis Oberer Work Phone: [facility] [place] Work Phone: Start: 03-25-2023 End: 03-25-2023 ambulatory Luis Oberer Other [employer] Other Start: 03-25-2023 Telephone encounter Luis Oberer [facility] Start: 02-28-2023 End: 02-28-2023 ambulatory Luis Oberer Other [employer] Other Start: 02-28-2023 Telephone encounter Luis Oberer [facility] Start: 01-21-2023 End: 01-21-2023 ambulatory Luis Oberer Other [employer] Other Start: 01-21-2023 Encounter for genera l adult medical examination without abnormal findings Luis Oberer [facility] Start: 01-21-2023 Patient encounter procedure Luis Oberer [facility] Start: 01-14-2023 End: 01-14-2023 ambulatory DO Luis Oberer Work Phone: [facility] Work Phone: Start: 01-14-2023 End: 01-14-2023 Patient encounter procedure DO Luis Oberer Work Phone: [facility] [place] Work Phone: Start: 11-06-2022 End: 11-06-2022 ambulatory Luis Oberer Other [employer] Other Start: 11-06-2022 Telephone encounter Luis Oberer [facility] Start: 07-25-2022 End: 07-25-2022 ambulatory DO Luis Oberer Work Phone: [facility] Work Phone: Start: 07-25-2022 End: 07-25-2022 Patient encounter procedure DO Luis Oberer Work Phone: [facility] [place] Work Phone: Start: 06-13-2022 End: 06-13-2022 ambulatory DO Luis Oberer Work Phone: [facility] Work Phone: Start: 06-13-2022 End: 06-13-2022 Patient encounter procedure DO Luis Oberer Work Phone: [facility] Start: 02-15-2022 End: 02-15-2022 ambulatory Luis Oberer Other [employer] Other Start: 02-15-2022 Telephone encounter Luis Oberer [facility] Start: 01-25-2022 End: 01-25-2022 ambulatory Luis Oberer Other [employer] Other Start: 01-25-2022 Office outpatient vi sit 25 minutes Luis Oberer [facility] Start: 11-17-2021 End: 11-17-2021 ambulatory Lusi Oberer Other [employer] Other Start: 11-17-2021 Office outpatient vi sit 15 minutes Luis Oberer [facility] Start: 10-26-2021 End: 10-26-2021 ambulatory Luis Oberer Other [employer] Other Start: 10-26-2021 Office outpatient vi sit 15 minutes Luis Oberer [facility] Start: 10-19-2021 End: 10-19-2021 ambulatory Luis Oberer Other [employer] Other Start: 10-19-2021 Nursing evaluation o f patient and report Luis Oberer [facility] Start: 08-07-2021 End: 08-07-2021 ambulatory Luis Oberer Other [employer] Other Start: 08-07-2021 Follow-up encounter [facility] Start: 07-20-2021 End: 07-20-2021 ambulatory Luis Oberer Other [employer] Other Start: 07-20-2021 Encounter for genera l adult medical examination without abnormal findings Luis Oberer [facility] [address] Start: 07-20-2021 Patient encounter procedure Luis Oberer [facility] [address] Procedures Date Procedure Procedure Detail Performing Clinician Start: 08-21-2024 Plain chest X-ray Luis Oberer DO Work Phone: Start: 03-20-2024 Screening mammograph y of bilateral breasts DO Luis Oberer Work Phone: Start: 06-13-2022 Dual energy X-ray absorptiometry DO Luis Oberer Work Phone: Plan of Treatment Date Care Activity Detail Author Hepatic function panel [facility] Patient Education Asthma in adul ts Colon and rectal cancer screening [facility] Work Phone: [facility] Immunizations Immunization Date Immunization Notes Care Provider Fa cility 04-05-2023 RSV, preF3, adj, pf DO Luis Oberer Work Phone: [facility] 03-28-2023 Fluzone QIV High-Dos e 65YR+ DO Luis Oberer Work Phone: [facility] 03-26-2022 influenza, seasonal, injectable Luis Oberer Other [facility] 03-26-2022 Fluzone QIV High-Dos e 65YR+ DO Luis Oberer Work Phone: [facility] 10-31-2021 zoster vaccine recombinant DO Luis Oberer Work Phone: [facility] 07-21-2021 zoster vaccine recombinant DO Luis Oberer Work Phone: [facility] 07-21-2021 zoster vaccine, live Luis Ob erer Other [facility] 04-24-2021 COVID-19 Vaccine Pfi zer - Documentation Purposes Only Luis Oberer Other [facility] 04-10-2021 influenza, seasonal, injectable Luis Oberer Other [employer] Other 04-10-2021 influenza, injectabl e, quadrivalent, preservative free Luis Oberer Other [facility] 04-10-2021 Fluzone QIV High-Dos e 65YR+ DO Luis Oberer Work Phone: [facility] 04-10-2021 pneumococcal conjuga te vaccine, 13 valent Luis Oberer Other [facility] 04-10-2021 influenza, seasonal, injectable Luis Oberer Other [facility] 09-30-2020 COVID-19 Vaccine Pfi zer - Documentation Purposes Only Luis Oberer Other [facility] 09-09-2020 COVID-19 Vaccine Pfi zer - Documentation Purposes Only Luis Oberer Other [facility] 05-04-2020 pneumococcal polysaccharide vaccine, 23 valent DO Luis Oberer Work Phone: [facility] 03-10-2020 Fluzone QIV High-Dos e 65YR+ DO Luis Oberer Work Phone: [facility] 03-10-2020 influenza, seasonal, injectable Luis Oberer Other [facility] 04-24-2019 pneumococcal polysaccharide vaccine, 23 valent DO Luis Oberer Work Phone: [facility] 04-24-2019 Seasonal, quadrivale nt, recombinant, injectable influenza vaccine, preservative free DO Luis Oberer Work Phone: [facility] 04-06-2019 influenza, seasonal, injectable Luis Oberer Other [facility] 03-31-2018 influenza, seasonal, injectable Luis Oberer Other [facility] 06-11-2017 pneumococcal polysaccharide vaccine, 23 valent Luis Oberer Other [facility] 03-26-2017 influenza, seasonal, injectable Luis Oberer Other [facility] 03-26-2017 influenza, injectabl e, quadrivalent, preservative free DO Luis Oberer Work Phone: [facility] 04-18-2016 influenza, seasonal, injectable Luis Oberer Other [facility] 03-29-2015 influenza, seasonal, injectable DO Luis Oberer Work Phone: [facility] 03-08-2015 influenza, seasonal, injectable Luis Oberer Other [facility] 02-25-2015 zoster vaccine, live Luis Ob erer Other [facility] 12-17-2014 pneumococcal conjuga te vaccine, 13 valent Luis Oberer Other [facility] 04-07-2014 influenza, seasonal, injectable Luis Oberer Other [facility] 03-27-2013 influenza, seasonal, injectable Luis Oberer Other [facility] 03-27-2012 influenza, seasonal, injectable Luis Oberer Other [facility] 11-20-2011 tetanus toxoid, redu luz marina diphtheria toxoid, and acellular pertussis vaccine, adsorbed Luis Oberer Other [facility] 04-26-2011 influenza, seasonal, injectable Luis Oberer Other [facility] 07-20-2009 novel [id number], preservative-free, injectable DO Luis Oberer Work Phone: [facility] 04-26-2009 influenza, seasonal, injectable Luis Oberer Other [facility] 11-25-2007 influenza, seasonal, injectable Luis Oberer Other [facility] 04-29-2003 pneumococcal polysaccharide vaccine, 23 valent DO Luis Oberer Work Phone: [facility] Payers Date Payer Category Payer Medicare [id number] 2.1 [id number] 2024 Self-pay [id number] 2024 Unknown [id number] 2011 [facility] [id number] Unknown [id number] Unknown [id number] Unknown [id number] Unknown [id number] Social History Date Type Detail Facility Unknown if ever smoked [employer] Other Sex Assigned At Sex Assigned At Bir th [employer] Other Start: 10-02-2017 End: 07-22-2023 Tobacco smoking status NHIS Never smoked tobacco (finding) [facility] Start: 1955 Sex Assigned At Female F [facility] Start: 08-18-2024 End: 08-22-2024 Sex Female (finding) [facility] Clinical Notes 07-20-2021 to 08-21-2024 Note Date & Type Note Facility 08-21-2024 Evaluation note Diagnosis Onset Date Resolution Adjustment disorder with mixed anxiety and depressed mood acute August 21 10:08am Allergic rhinitis acute 2024 10:08am Asthma acute August 21, 2024 10:08am Encounter for long-term (current) use of medications acute August 21 10:08am Generalized OA acute August 082024 10:08am Impaired glucose tolerance acute August 21 10:08am Mixed hyperlipidemia acute ua2024 10:08am Osteoporosis acute August 10:08am Panic disorder acute August 082024 10:08am Colon cancer screening noneactive Fe bruary 2024 10:08am Rib pain on right side noneactive Fe bruary 2024 10:08am Breast cancer screening by mammogram noneactive February 14th, 2 025 10:08am Right humeral fracture noneactive Fe bruary 2024 10:08am [facility] Work Phone: 1(132) 429-817701-15-2024 Evaluation note* Encounter Date Diagnosis Assessment Notes Treatment Notes Treatment Clinical Notes Jul, BMI 50.0-59.9, adult (ICD-10 - [...] and sooner as needed or pending above [employer] Other 11-09-2023 History general Narrative - Reported* [...] passed bile duct stone ERCP w/spinchterectomy 11/2006 [employer] Other 07-17-2023 Evaluation note* Encounter Date Diagnosis Assessment Notes Treatment Notes Treatment Clinical Notes Jan, Colon cancer screening (ICD-10 - Z12.11) Colon cancer screening options discussed, colonoscopy ( alfredito ) versus stool sampling ( Chevy ) discussed. I did discuss that if [...] Please send today's labs to Dr. Mckeon. [employer] Other 08-11-2022 Evaluation note* Encounter Date Diagnosis Assessment Notes Treatment Notes Treatment Clinical Notes Feb, Encounter for screening for osteoporosis (ICD-10 - Z13.820) Feb, Adjustment disorder with mixed anxiety and depressed mood (ICD-10 - F43.23) [employer] Other 07-21-2022 Evaluation note* Encounter Date Diagnosis [...] Healthy weight encouraged. Risk of diabetes discussed Jan, Encounter for long-term (current) use of [...] or pending above, Atorvastatin material was published [employer] Other 05-13-2022 Evaluation note* Encounter Date Diagnosis [...] F41.0) See dictation above November, Other RTO January as alayna eduled for general recheck and sooner as needed. Once we get her baseline anxiety/depression stable, we will consider preprocedure benzodiazepine for future MRIs or CTs if needed. [employer] Other 04-21-2022 Evaluation note* Encounter Date Diagnosis [...] will be given something IV at the [facility] on cataract they. She, as above, [...] Oct, Other Buspirone mater ial was published [employer] Other 04-14-2022 Evaluation note* Encounter Date Diagnosis Assessment Notes Treatment Notes Treatment Clinical Notes Oct, Colon cancer screening (ICD-10 - Z12.11) [employer] Other 01-31-2022 Evaluation note* Encounter Date Diagnosis Assessment Notes Treatment Notes Treatment Clinical Notes Jul, Cystitis without hematuria (ICD-10 - N30.90) [employer] Other 01-13-2022 Evaluation note* Encounter Date Diagnosis [...] not think she has a power of corporate attorney. She states that she is going [...] and sooner as needed or pending above. [employer] Other Evaluation noteNo assessment information available [facility] Work Phone: [facility]No [facility] [employer] Other Evaluation note* Diagnosis Onset Date Resolution Status Adjustment disorder with mix ed anxiety and depressed mood acute Asthma acute Generalized OA acute Impaired glucose tolerance a cute Mixed hyperlipidemia acute Osteoporosis acute Panic disorder acute Seasonal allergies acute Colon cancer screening nonea ctive Wellness examination noneact janee Breast cancer screening none active [facility] Work Phone: History general Narrative - Reported* Type Description Date Medical History Asthma-started age 7 Medical History Allergic rhinitis Medical History PMS-Depressive symtoms/mixed moo d disorder Medical History Hypercholesterolemia (2002)-Mixe d hyperlipidemia Medical History [employer] [place] Medical History Osteoporosis-Dexascan 05/16 Medical History OA Lt Knee (X-Ray) Medical History Impaired glucose intolerance( 20 10) Medical History Hx Limpoma's Surgical History Laparoscopic cholecystectomy Surgical History Rt upper back lipoma excision-P edalino 11/2013 Surgical History Dermatofibroma excised from LT leg-[place] 12/2009 Surgical History Lt knee Arthroplasty 10/2010 Hospitalization History Pneumonia/Asthma 1984 Hospitalization History [facility] l / abd pain-probable passed bile duct stone ERCP w/spinchterectomy 11/2006 [facility] [employer] Other Summary Purpose Family History No Family [...] 0) Referral Organization [facility] [place] [facility] Referring Provider First Name Luis Referring Provider Last Name Oberer Referring Provider Specialty Family Prac lindsey Referred Organization [facility] Referred Address [address] [place] [address] [place], [place],[address] Referred Provider Specialty Neurology Referral Priority Routine [...] cancer screening Wellness examination Breast cancer screening Chief Complaint Admit Date I10 August 17, 2024 11:10am Chief Complaint Admit Date I10 August 17, 2024 11:10am 6 month/fasting labs August 21, 2024 10:08am right rib pain August 21, 2024 11:10am Reason for Visit Admit Date Adjustment disorder with mixed anxiety a nd depressed mood August 21, 2024 10:08am Allergic rhinitis August 21, 2024 10:08am Asthma August 21, 2024 10:08am Encounter for long-term (current) use of medications August 21, 2024 10:08am Generalized OA August 21, 2024 10:08am Impaired glucose tolerance August 10:08am Mixed hyperlipidemia August 21, 2024 10:08am Osteoporosis August 21, 2024 10:08am Panic disorder August 21, 2024 10:08am Colon cancer screening August 21 10:08am Rib pain on right side August 21 10:08am Breast cancer screening by mammogram Aug 10:08am Right humeral fracture August 21 10:08am Additional Source Comments INFORMATION SOURCE (unrecogn ized section and content) DATE CREATED AUTHOR 12/31/2020 [employer] [facility] DATE CREATED AUTHOR AUTHOR'S ORGANIZ ATION 08/23/2024 [facility] REASON FOR VISIT (unrecogniz ed section and content) 6 month Follow up, Mood- goo d TS, advance plan, asthma- no issues, under control TS, albuterol, pharmacy- [facility] TS, Medicare Well Exam #1, KLO Medicare [...] 3 years, no breast exams, Hemoccult last Septemberhemocult cardspanic attacks pt went to go get [...] 2021, Facial droop, neurology, twitching, Dr. Santana May ordered MRI/MRA braindexa scan, buspironeNEEDS LABS FAXED6 month Follow up, pharmacy: [facility] lfr, refills: Ventolin HFA. lfr, ADV [...] F/U/LABS, NEXT OV AWV AFTER 01.22.24, Pharmacy: [facility] [place]. lfr, Refills: No. lfr, Colonoscopy: [...] Status: Inactive Member Role Status Dates Luis Oberer , DO Primary Care Provide r, Attending Provider Active Start: July 15, 2023 End: July 15, 2023 Team Status: Inactive Member Role Status Dates Luis Oberer , DO Attending Provider Active Start : July 22, 2023 End: July 22, 2023 Team Status: Inactive Member Role Status Dates Luis Oberer , DO Primary Care Provider Active St art: July 30, 2023 End: July 30, 2023 Matt Mckeon , DO Attending Provider Active Sta rt: July 30, 2023 End: July 30, 2023 Team Status: Active Member Role Status Dates Matt Mckeon , DO Specialist Active Luis Oberer , DO Primary Care Provider Active Team Status: Inactive Member Role Status Dates Luis Oberer , DO Primary Care Provide r, Attending Provider Active Start: January 24, 2024 End: January 24, 2024 Team Status: Inactive Member Role Status Dates Luis Oberer , DO Primary Care Provide r, Referring Provider Active Start: March 20, 2024 End: March 20, 2024 Referral Self Attending Provider Active Start: S brian 2023 End: March 20, 2024 Team Status: Inactive Member Role Status Dates Luis Oberer , DO Primary Care Provide r, Attending Provider Active Start: August 17, 2024 End: August 17, 2024 Team Status: Inactive Member Role Status Dates Luis Oberer , DO Primary Care Provide r, Attending Provider Active Start: August 21, 2024 End: August 21, 2024 Goals (unrecognized section and content) Goals [...] BE BASED ON THE PRIMARY CLINICAL RECORDS. [facility]. provides no warranty or guarantee of the accuracy or completeness of information in this document.
== END 2024-08-24 11:27 | disposition home or self-care (01) ==
LOC: EC 11:27
PROVIDERS: Family Provider Family Medicine; PCP Family Medicine; Visit Provider Orthopaedic Surgery
DX: S42.271D Torus fracture of upper end of right humerus, subsequent encounter for fracture with routine healing (principal)
CPT/HCPCS: 73030